=== PATIENT | male | born 1985 | race Caucasian/White ===

== ENCOUNTER → 2016-06-26 | Outpatient (CLI) | payer OTHER ==
[~2016-06-26] MED LIST: ACET325T96 PO; DIVA250T4 PO; LCTX PO; MULTTAB PO; PRLSR20 PO; SUCR5SUS PO
--- NOTE | 2016-06-26 10:46 | DIAGNOSTIC IMAGING REPORT ---
ULTRASOUND OF THE THYROID GLAND CLINICAL HISTORY: Thyromegaly. COMPARISON STUDY: No priors. TECHNIQUE: Real-time, grayscale, and color flow sonography of the thyroid gland is performed utilizing a high-frequency linear transducer. Images are reviewed in the transverse and longitudinal planes. FINDINGS: Right lobe: The right lobe of the thyroid gland is slightly diminutive and homogeneous in echotexture, measuring 2.8 x 1.6 x 1.2 cm. Left lobe: The left lobe of the thyroid gland is slightly diminutive and homogeneous in echotexture, measuring 3.1 x 1.2 x 1.7 cm. Isthmus: The thyroid isthmus is normal in appearance and measures 0.2 cm in AP diameter. IMPRESSION: The thyroid gland is slightly diminutive and normal in echotexture. Electronically signed by: Dev Ruvalcaba M.D. 06/26/2016 10:44 AM Dictated Date/Time: 06/26/2016 10:43 AM
== END | disposition home or self-care (01) ==
LOC: C.ULTRBC 09:40
DX: E01.0 Iodine-deficiency related diffuse (endemic) goiter (principal)

== ENCOUNTER → 2017-04-17 | Outpatient (CLI) | payer OTHER ==
[~2017-04-17] MED LIST changes: +ACET-1693 PO; -ACET325T96 PO
[2017-04-17 13:50] LABS: INFLUENZA B ANTIGEN Neg for Influ B (NEG)
--- NOTE | 2017-04-24 06:41 | CODING QUERY NO DIAGNOSIS ---
TREATMENT RENDERED WITHOUT A DIAGNOSIS Dr. Billings, To promote full compliance with coding requirements relating to patient care, physician participation is requested in all cases of certified procedural coder uncertainty. Please assist us with providing a diagnosis/symptom for the test(s) below: A diagnosis/symptom was not documented on your Order. A valid diagnosis/symptom is required to bill all insurances. Please remember that we are unable to code a diagnosis of rule out, probable, possible, questionable, or suspected. Tests that require a diagnosis: * INFLUENZA VIRUS A & B ANTIGEN DIAGNOSIS: DATE OF SERVICE: 04/17/17 Provider Signature: Date: Thank you Myles Fontaine [facility] Information Management Once completed, please kindly fax back to [phone] For questions please call [phone]
== END | disposition home or self-care (01) ==
LOC: C.RAD 12:26
DX: Z01.89 Encounter for other specified special examinations (principal)

== ENCOUNTER 2020-12-18 23:19 | Observation (INO) ==
[2020-12-19] MEDS ORDERED: SODIUM CHLORIDE 0.9% 1000ML 1,000 ML IV STA (00:35)
[2020-12-19] MEDS ORDERED: ONDANSETRON INJ 2 MG/ML 2 ML VIAL IV STA (00:40)
[2020-12-19] MEDS ORDERED: ACETAMINOPHEN 500 MG TAB PO STA (00:40)
[2020-12-19] MEDS ORDERED: methylPREDNISolone 125 MG/2 ML VIAL IV STA (01:00)
[2020-12-19] MEDS ORDERED: ALBUT/IPRATROP 3MG/0.5MG NEB 3 ML VIAL NEB STA (01:00)
[2020-12-19 02:06] LABS: Basophils # (auto) 0.05 K/uL (0-0.2); Basophils % (auto) 0.4 %; Eosinophils # (auto) 0.03 K/uL (0-0.5); Eosinophils % (auto) 0.3 %; Hematocrit (blood only) 42.4 % (42-52); Hemoglobin 13.9 g/dL (14.0-18.0); Immature Granulocytes # (auto) 0.04 K/uL (0.00-0.02); Immature Granulocytes % (auto) 0.3 %; Lymphocytes # (auto) 1.58 K/uL (1.2-3.4); Lymphocytes % (auto) 13.7 %; Mean Corpuscular Hemoglobin 31.4 pg (25-34); Mean Corpuscular Hgb Conc 32.8 g/dL (32-36); Mean Corpuscular Volume 95.7 fL (80-100); Mean Platelet Volume 10.6 fL (7.4-10.4); Monocytes # (auto) 1.22 K/uL (0.11-0.59); Monocytes % (auto) 10.6 %; Neutrophils # (auto) 8.59 K/uL (1.4-6.5); Neutrophils % (auto) 74.7 %; Platelet Count 271 K/uL (130-400); RDW Coefficient of Variation 14.8 % (11.5-14.5); RDW Standard Deviation 52.2 fL (36.4-46.3); Red Blood Count 4.43 M/uL (4.7-6.1); White Blood Count 11.51 K/uL (4.8-10.8)
[2020-12-19] MEDS ORDERED: PIPERACILLIN/TAZOBACTAM 4.5 GM/120 ML BAG IV ONE ×2 (02:24→07:15)
[2020-12-19 02:25] LABS: Alanine Aminotransferase 23 U/L (12-78); Aspartate Aminotransferase 14 U/L (15-37); BUN Creatinine Ratio 17.3 (10-20); Blood Urea Nitrogen 17 mg/dl (7-18); Calcium 8.4 mg/dl (8.5-10.1); Carbon Dioxide 30 mmol/L (21-32); Chloride 105 mmol/L (98-107); Creatinine Clr Calc Pharmacy 64.1 ml/min; Est GFR (African American) 115.3 ml/min; Est GFR (Non-African American) 99.5 ml/min; Glucose 102 mg/dl (70-99); Potassium 4.2 mmol/L (3.5-5.1); Sodium 138 mmol/L (136-145)
[2020-12-19] MEDS ORDERED: CEFEPIME 2,000 MG/20 ML VIAL IV STA (02:26)
[2020-12-19] MEDS ORDERED: metroNIDAZOLE 500 MG/100 ML BAG IV STA (02:26)
[2020-12-19 02:30] LABS: Albumin Globulin Ratio 0.8 (0.9-2); Alkaline Phosphatase 79 U/L (45-117); Bilirubin,Total 0.3 mg/dl (0.2-1); Troponin I < 0.015 ng/ml (0-0.045)
[2020-12-19 02:31] LABS: Influenza A virus by PCR Negative (Negative); Influenza B virus by PCR Negative (Negative)
[2020-12-19] MEDS ORDERED: OPTIRAY 320 125ml IV ONE (03:47)
[2020-12-19] MEDS ORDERED: SODIUM CHLORIDE 0.9% 1000ML 1,000 ML IV SCH (05:09)
--- NOTE | 2020-12-19 06:18 | History & Physical Report ---
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 Aspiration pneumonia vs. aspiration pneumonitis CT with findings of bilateral lung groundglass like opacities; no PE; stable post surgical changes of the left lung BP soft, afebrile, tachypnea, procal nl @ 0.23, lactate nl @ 1 Flu neg., COVID neg. - admitted to PCU - given Cefepime and Flagyl in the ER given initially - started Flagyl for concern of aspiration pneumonia - IV fluids bolus X2 - consulted pulmonology given prior surgical history - aspiration precautions - humidified 02 - flutter valve allergic rhinitis - continue fexofenadine Code: full Diet: regular DVT: SCD's (2) Hypoxia: (3) Sepsis: (4) Bronchostenosis: (5) Esophageal stricture: History of Present Illness Chief Complaint: cough Primary Care Provider: Tay Billings Jr, Oswaldo Reyes is a 35-year-old male with a past medical history of esophageal stricture, trisomy 21, allergic rhinitis, gastritis and prior esophageal reconstruction presenting with cough preceded by nausea. Thursday evening he had diarrhea (since resolved), he had retching with that and may have aspirated at that time. On Thursday he was coughing all day that had progressively worsened and he developed a small amount of yellow sputum. Mom Stevo was in the room and would like to stay with her son in the hospital. Allergies Allergy/AdvReac Type Severity Reaction Status Date / Time gluten Allergy Severe Abdominal Verified 12/18/20 23:40 Pain Home Medications Medication Instructions Recorded Confirmed Type multivitamin (Daily Multiple) 1 tab PO DAILY 08/04/19 12/18/20 History fexofenadine 180 mg tablet 180 mg PO DAILY 12/13/20 12/18/20 History (Angelica Allergy) triamcinolone acetonide 55 mcg 2 spray INTRANASAL DAILY 12/13/20 12/18/20 History nasal spray aerosol econazole 1 % topical cream 1 applic TOPICAL BID 12/18/20 12/18/20 History ipratropium 20 mcg-albuterol 100 1 puff INHALATION BID 12/18/20 12/18/20 History mcg/actuation mist for inhalation (Combivent Respimat) Past Med/Surg History Medical History (Updated 12/19/20 @ 14:00 by Dev Hallman PA-C) Abdominal pain Aspiration into airway Esophageal stricture reconstructed esophagus Trisomy 21 Surgical History History of esophageal surgery reconstructed esophagus Social History Smoking Status: Never smoker Hx Alcohol Use: No Hx Substance Use: No Preferred Language: Ivorian Communication Ability: Impaired Sas Sql Developer Required: No Beliefs That Will Affect Care: None marital status: Single Current Living Situation: Family Feels Safe at Home: Yes Assistive Devices: Oxygen - Continuous Review of Systems Review of Systems: Constitutional: denies fevers, chills, fatigue, general weakness, diaphoresis, night sweats admit nausea Head: denies trauma, confusion, vision changes admit a headache this morning Neurologic: denies slurring of speech, focal weakness ENT: deneis rhinorrhea, stuffiness, sneezing Cardiac: denies palpitations admits chest pain with cough GI: denies blood in stool admits diarrhea on Thursday : denies urgency, frequency, dysuria Physical Exam Constitutional: well developed, well nourished and + ill appearing Eyes: PERRL, conjunctivae normal, anicteric sclerae ENMT: external ear and nose normal, oropharynx normal Neck: normal visual inspection Respiratory: no respiratory distress and no labored breathing Auscultation: + crackles (bilaterally throughout lung goyal) Cardiovascular: RRR, no murmur, no edema Gastrointestinal (Abdomen): normal bowel sounds, soft, nontender, no hepatosplenomegaly Skin: no rashes, warm and dry Neurologic: no focal motor deficits Psychiatric: Orientation: alert Results & Data Results & Data ([facility]) Vital Signs (Past 12 Hours) Vital Signs Temp Pulse Resp BP Pulse Ox 12/19/20 05:00 59 L 29 H 83/58 L 98 12/19/20 04:30 61 24 88/55 L 100 12/19/20 04:00 72 29 H 91/59 L 99 12/19/20 03:30 70 27 H 93/58 L 90 12/19/20 03:10 70 24 92 12/19/20 03:00 64 20 93 12/19/20 02:50 68 22 94 12/19/20 02:40 71 30 H 92 12/19/20 02:30 73 29 H 92 12/19/20 02:27 71 25 H 91 12/19/20 01:18 18 98 12/19/20 00:55 85 22 115/71 97 12/18/20 23:26 37.2 C 88 19 93/63 L 91 CBC Results Results Complete Blood Count Results: RBC 4.43 M/uL (4.7-6.1) L 12/19/20 WBC 11.51 K/uL (4.8-10.8) H 12/19/20 Hgb 13.9 g/dL (14.0-18.0) L 12/19/20 Hct 42.4 % (42-52) 12/19/20 Plt Count 271 K/uL (130-400) 12/19/20 Chemistry (BMP) Results BMP Results: Sodium 138 mmol/L (136-145) 12/19/20 Potassium 4.2 mmol/L (3.5-5.1) 12/19/20 Chloride 105 mmol/L (98-107) 12/19/20 BUN 17 mg/dl (7-18) 12/19/20 Creatinine 0.98 mg/dl (0.6-1.4) 12/19/20 Glucose 102 mg/dl (70-99) H 12/19/20 Supervising Physician Co-Signing Physician Notes Patient seen and examined, chart reviewed, case discussed with Dr. Batista and I agree with the assessment and plan as documented above. Briefly, patient is a 35 yo male with history of Trisomy 21, esophageal stricture s/p esophageal reconstruction, aspiration in the past presenting with possible aspiration event. Patient has been coughing all day productive for yellow sputum. Afebrile, HD stable during my encounter. Sleeping comfortably with Oxymask in place Heart - +S1/S2, regular Lungs - coarse breath sounds in bases Abd - +BS, soft, NT/ND Ext - no edema Labs and images reviewed Assessment/Plan - Aspiration event, ?pneumonia vs pneumonitis - on O2 -Zosyn -Supplemental O2 as needed -Remainder of plan as above Resident Activity Tracking Resident Involvement: Resident Care Provided Care Provided: [facility] (1) Sepsis Sepsis type: sepsis due to unspecified organism Qualified Code(s): A41.9 - Sepsis, unspecified organism (2) Pneumonia Laterality: bilateral Lung location: unspecified part of lung Pneumonia type: due to unspecified organism Qualified Code(s): J18.9 - Pneumonia, unspecified organism
--- NOTE | 2020-12-19 06:47 | Billing Data ---
Date of Service December 19, 2020 Coding Level of Care Code 14328 Initial Inpt Care Lvl 2
[2020-12-19] MEDS ORDERED: ONDANSETRON INJ 2 MG/ML 2 ML VIAL IV PRN (07:07)
[2020-12-19] MEDS ORDERED: PIPERACILL/TAZOBAC CONSULT ACTIVE PRN (07:07)
[2020-12-19] MEDS ORDERED: Albuterol HFA 8 GM Inhaler (Combivent Respimat P&T Subs) INH SCH (07:30)
[2020-12-19] MEDS ORDERED: Ipratropium HFA Inhaler (Combivent Respimat P&T Subs) INH SCH (07:30)
--- NOTE | 2020-12-19 08:06 | Hospitalist Progress Note ---
Date of Service December 19, 2020 Assessment & Plan Admission and Anticipated Discharge Date Admission Date: December 19, 2020 Results & Data Results & Data ([facility]) Vital Signs (Past 12 Hours) Vital Signs Temp Pulse Resp BP Pulse Ox 12/19/20 05:30 56 L 28 H 93/59 L 100 12/19/20 05:15 57 L 14 94/52 L 100 12/19/20 05:00 59 L 29 H 83/58 L 98 12/19/20 04:30 61 24 88/55 L 100 12/19/20 04:00 72 29 H 91/59 L 99 12/19/20 03:30 70 27 H 93/58 L 90 12/19/20 03:10 70 24 92 12/19/20 03:00 64 20 93 12/19/20 02:50 68 22 94 12/19/20 02:40 71 30 H 92 12/19/20 02:30 73 29 H 92 12/19/20 02:27 71 25 H 91 12/19/20 01:18 18 98 12/19/20 00:55 85 22 115/71 97 12/18/20 23:26 37.2 C 88 19 93/63 L 91
--- NOTE | 2020-12-19 08:21 | XRay Report ---
XR chest 1V portable CLINICAL HISTORY: SOB, cough COMPARISON STUDY: January 11, 2018 FINDINGS: No pneumothorax. Minimal left pleural effusion is seen. Prominent reticular nodular opacities are seen bilaterally, predominantly in central distribution. De nse left retrocardiac opacity seen and might represent atelectasis or infiltrate. Redemonstration of postsurgical changes after esophagectomy and enteric pull-through procedure. Cardiomediastinal silhouette is mildly enlarged. Bilateral ratna are prominent. Pulmonary vasculature is secured.. Osseous structures: Mild thoracolumbar scoliosis is seen. IMPRESSION: 1. Bilateral reticular opacities and enlarged cardiac silhouette might represent pulmonary edema, ho wever infectious/inflammatory etiology is also possible. 2. Small left pleural effusion 3. The rest of findings as above. ACT 112: Negative or not required by law. The above report was generated using voice recognition software. It may contain grammatical, syntax o r spelling errors. Electronically signed by: Massiel Medley DO 12/19/2020 8:20 AM
--- NOTE | 2020-12-19 08:57 | Electrocardiogram Report ---
Test Reason : Blood Pressure : / mmHG Vent. Rate : 072 BPM Atrial Rate : 072 BPM P-R Int : 108 ms QRS Dur : 090 ms QT Int : 392 ms P-R-T Axes : 039 052 040 degrees QTc Int : 429 ms Sinus rhythm with short [place] Left atrial enlargement Borderline ECG When compared with ECG of 11-JAN-2018 14:06, No significant change was found Confirmed by Gómez Moise ([id number]) on 12/19/2020 8:57:12 AM Referred By: REFERRED SELF Confirmed By:Gómez Moise
[2020-12-19] MEDS ORDERED: FEXOFENADINE HCL 180 MG TAB PO SCH (09:00)
[2020-12-19] MEDS ORDERED: IPRATROPIUM BROMIDE/ALBUTEROL respimat INH INH SCH (09:00)
[2020-12-19] MEDS ORDERED: FLUTICASONE PROPIONATE NA SPR 16 GM BTL SCH (09:00)
[2020-12-19] MEDS ORDERED: AZITHROMYCIN 500 MG in DEXTROSE 5% 250 ML IV SCH (09:15)
--- NOTE | 2020-12-19 10:05 | CT Scan Report ---
CT ANGIOGRAM OF THE CHEST CLINICAL HISTORY: PNA, aspiration COMPARISON STUDY: January 15, 2018 TECHNIQUE: Following the IV administration of 87 mL of Optiray, CT angiogram of the thorax was perfor med from the thoracic inlet to the lung bases utilizing the pulmonary embolus protocol. Images are re viewed in the axial, sagittal, and coronal planes. IV contrast was administered without complication. MIP imaging was performed. A dose lowering technique was utilized adhering to the principles of ALA RA. CT DOSE: 281.88 mGy.cm FINDINGS: There is no axillary or suture supra clavicle lymph nodes are seen. Slightly prominent lymph node is seen within prevascular space There was no evidence of thoracic aortic dilatation. Main pulmonary artery is dilated measuring up to 3.1 cm in diameter, unchanged since prior study which could be seen in pulmonary hypertension. Visualized portion of thyroid gland shows no evidence of focal lesions. 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 Heart is normal in size without pericardial effusion or coronary calcifications. Tracheobronchial tree is patent. This study is acquired during partial expiratory phase. Evaluation o f pulmonary parenchyma is limited due to respiratory motion artifact. Patchy mixed reticular and airspace opacities are seen throughout bilateral lungs associated with mil d septal thickening. No definite pleural effusion is seen. Limited evaluation of upper abdominal viscera shows no evidence of acute abnormalities. Osseous structures: Mild thoracolumbar scoliosis is again seen. IMPRESSION: 1. Multiple mixed reticular and airspace opacities throughout bilateral lungs also associated with s eptal thickening might represent infectious/inflammatory process. Pulmonary edema component is also p ossible. Overall evaluation is limited due to respiratory motion artifact. 2. Redemonstration status post esophagectomy and enteric pull-through procedure. Findings are stable since prior as detailed above. 3. Prominent mediastinal lymph nodes, not significantly changed since prior. 4. Dilated main pulmonary artery which could be seen in pulmonary hypertension. 5. The rest of findings as above. ACT 112: Negative or not required by law. The above report was generated using voice recognition software. It may contain grammatical, syntax o r spelling errors. Electronically signed by: Massiel Medley DO 12/19/2020 10:04 AM
--- NOTE | 2020-12-19 13:05 | XCELERA ---
[id number]
[2020-12-19 13:31] VITALS: BP 102/83; PULSE 66; TEMP 98.2; O2SAT 98
--- NOTE | 2020-12-19 13:50 | Pulmonary Consultation ---
Date of Consultation December 19, 2020 Assessment & Plan (1) Aspiration into airway: (2) Bronchostenosis: (3) Esophageal stricture: (4) Hypoxia: (5) DVT prophylaxis: Attending: Dr. Phelps Impression: Is a 35-year-old male with a history of trisomy 21, bronchial stenosis with previous stent, history of aspiration, history of pneumonia, recent vomiting. Recommendations: 1. Aspiration pneumonitis: * Chest CT shows reticular pattern. This certainly appears to be worse than p revious CT but most likely is not related to aspiration. Procalcitonin is negative at 0.23. Patient is afebrile. Patient has had no episodes of hypoxia. * Although patient may have some pneumonitis secondary to aspiration, there was no witnessed aspiration per report of father. * In light of the negative procalcitonin and only mildly elevated WBC (11.51) would hold antibiotics and allow patient to declare himself. * Patient may benefit from incentive spirometry but with his trisomy 21 he may have difficulty coordinating. * Patient is not hypoxic and does not require supplemental oxygen * Continue aspiration precautions and supervised feedings. Keep head of bed greater than 30 degrees 2. Hypoxia: * Patient with a history of hypoxia but not on any supplemental oxygen as an outpatient * No evidence of hypoxia this hospital stay * No indication for supplemental oxygen at this time * Continue incentive spirometry. May use duo nebs as tolerated 3. Bronchostenosis: * Previous surgery about 5 years ago at [facility] * No complications since then * Good air movement in all lobes of right and left lung * No evidence of obstruction on CT scan * No intervention or need for transfer at this time Thank you for including us in the care of this patient. Please refer to Dr. Phelps's addendum for further recommendations and corrections Pulmonary medicine will sign off at this time. Please feel free to reconsult as needed. Supervising Physician Co-Signing Physician Notes I discussed the patient on the phone with Dev Hallman, and agree with findings and plan as documented in the note. No indication for any intervention from pulmonary perspective. Procalcitonin negative Patient does have some groundglass opacities bilaterally. Aspiration cannot be ruled out Would recommend aspiration precautions Please note the above document was generated using voice recognition software. It may contain grammatical, syntax or spelling errors.Any formal questions or concerns about the content, text or information contained within the body of this dictation should be directly addressed to the provider for clarification. History of Present Illness Reason for Consultation: Possible pneumonitis from aspiration Requesting Physician: Dr. Piper Attending Physician: Erika Piper MD History of Present Illness Attending: Dr. Phelps Is a 35-year-old male with a history of trisomy 21, esophageal stricture, bronchial stenosis, coronary patient, history of colonic interposition as an , and seasonal allergies. Patient presented to the emergency department accompanied by his mom Stevo for episodes of coughing and retching. No witnessed aspiration. Imaging shows possible pneumonitis versus atelectasis which was concerning for the admitting team for aspiration secondary to esophageal stricture. On examination patient is pleasant and denies any acute complications or problems. Father is present in the room at the time of my examination and interview. Patient denies any fever, chills, sweats, rigors. This is confirmed by father. Since being admitted, father states that Oswaldo appears to be at baseline. While there was a small amount of yellow sputum with coughing on Thursday, there was no significant sputum production and no evidence of respiratory distress. Patient was started on Flagyl and Zosyn on admission. Procalcitonin is negative at 0.23 and patient is not hypoxic. Currently patient is saturating at 98% on room air. Allergies Allergy/AdvReac Type Severity Reaction Status Date / Time gluten Allergy Severe Abdominal Verified 12/18/20 23:40 Pain Home Medications Medication Instructions Recorded Confirmed Type multivitamin (Daily Multiple) 1 tab PO DAILY 08/04/19 12/18/20 History fexofenadine 180 mg tablet 180 mg PO DAILY 12/13/20 12/18/20 History (Angelica Allergy) triamcinolone acetonide 55 mcg 2 spray INTRANASAL DAILY 12/13/20 12/18/20 History nasal spray aerosol econazole 1 % topical cream 1 applic TOPICAL BID 12/18/20 12/18/20 History ipratropium 20 mcg-albuterol 100 1 puff INHALATION BID 12/18/20 12/18/20 History mcg/actuation mist for inhalation (Combivent Respimat) Patient History Medical History (Updated 12/19/20 @ 14:00 by Dev Hallman PA-C) Abdominal pain Aspiration into airway Esophageal stricture reconstructed esophagus Trisomy 21 Surgical History History of esophageal surgery reconstructed esophagus Social History Smoking Status: Never smoker Hx Alcohol Use: No Hx Substance Use: No Preferred Language: German Communication Ability: Impaired Drapery Head Former Required: No Beliefs That Will Affect Care: None marital status: Single Current Living Situation: Family Feels Safe at Home: Yes Assistive Devices: Oxygen - Continuous Review of Systems Review of Systems: All systems reviewed & are unremarkable except as noted in Subjective Physical Exam Physical Exam: GENERAL : No acute distress. Pleasant EYES: No icterus, gaze conjugate NOSE: No evidence of epistaxis MOUTH: No lesions or candidiasis NECK: Supple LUNGS: Good inspirational effort. Some rales at the bilateral bases. No rhonchi or significant bronchospasm. HEART: Regular, rate controlled ABDOMEN: Soft, NT, ND, BS Present EXTREMITIES: No LE edema, pedal pulses intact NEURO: Awake and alert. Pleasant. No evidence of acute neurological deficits to cranial nerves II through XII Results & Data Results & Data ([facility]) Vital Signs (Past 12 Hours) Vital Signs Temp Pulse Pulse Resp BP BP Pulse Ox 12/19/20 12:00 36.8 C 66 18 102/83 98 12/19/20 09:43 55 L 18 100 12/19/20 07:07 66 22 104/58 L 95 12/19/20 05:30 56 L 28 H 93/59 L 100 12/19/20 05:15 57 L 14 94/52 L 100 12/19/20 05:00 59 L 29 H 83/58 L 98 12/19/20 04:30 61 24 88/55 L 100 12/19/20 04:00 72 29 H 91/59 L 99 12/19/20 03:30 70 27 H 93/58 L 90 12/19/20 03:10 70 24 92 12/19/20 03:00 64 20 93 12/19/20 02:50 68 22 94 12/19/20 02:40 71 30 H 92 12/19/20 02:30 73 29 H 92 12/19/20 02:27 71 25 H 91 Laboratory Results 12/19/20 Unknown 12/19/20 Unknown Diagnostic Findings Chest X-Ray 12/19/20 00:35 XR chest 1V portable CLINICAL HISTORY: SOB, cough COMPARISON STUDY: January 11, 2018 FINDINGS: No pneumothorax. Minimal left pleural effusion is seen. Prominent reticular nodular opacities are seen bilaterally, predominantly in central distribution. Dense left retrocardiac opacity seen and might represent atelectasis or infiltrate. Redemonstration of postsurgical changes after esophagectomy and enteric pull- through procedure. Cardiomediastinal silhouette is mildly enlarged. Bilateral ratna are prominent. Pulmonary vasculature is secured.. Osseous structures: Mild thoracolumbar scoliosis is seen. IMPRESSION: 1. Bilateral reticular opacities and enlarged cardiac silhouette might represent pulmonary edema, however infectious/inflammatory etiology is also possible. 2. Small left pleural effusion 3. The rest of findings as above. ACT 112: Negative or not required by law. The above report was generated using voice recognition software. It may contain grammatical, syntax or spelling errors. Electronically signed by: Massiel Medley DO 12/19/2020 8:20 AM Chest CTA 12/19/20 02:59 CT ANGIOGRAM OF THE CHEST CLINICAL HISTORY: PNA, aspiration COMPARISON STUDY: January 15, 2018 TECHNIQUE: Following the IV administration of 87 mL of Optiray, CT angiogram of the thorax was performed from the thoracic inlet to the lung bases utilizing the pulmonary embolus protocol. Images are reviewed in the axial, sagittal, and coronal planes. IV contrast was administered without complication. MIP imaging was performed. A dose lowering technique was utilized adhering to the princip les of MANISHA. CT DOSE: 281.88 mGy.cm FINDINGS: There is no axillary or suture supra clavicle lymph nodes are seen. Slightly prominent lymph node is seen within prevascular space There was no evidence of thoracic aortic dilatation. Main pulmonary artery is dilated measuring up to 3.1 cm in diameter, unchanged since prior study which could be seen in pulmonary hypertension. Visualized portion of thyroid gland shows no evidence of focal lesions. 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 Heart is normal in size without pericardial effusion or coronary calcifications. Tracheobronchial tree is patent. This study is acquired during partial expiratory phase. Evaluation of pulmonary parenchyma is limited due to r espiratory motion artifact. Patchy mixed reticular and airspace opacities are seen throughout bilateral lungs associated with mild septal thickening. No definite pleural effusion is seen. Limited evaluation of upper abdominal viscera shows no evidence of acute abnormalities. Osseous structures: Mild thoracolumbar scoliosis is again seen. IMPRESSION: 1. Multiple mixed reticular and airspace opacities throughout bilateral lungs also associated with septal thickening might represent infectious/inflammatory process. Pulmonary edema component is also possible. Overall evaluation is limit ed due to respiratory motion artifact. 2. Redemonstration status post esophagectomy and enteric pull-through procedure. Findings are stable since prior as detailed above. 3. Prominent mediastinal lymph nodes, not significantly changed since prior. 4. Dilated main pulmonary artery which could be seen in pulmonary hypertension. 5. The rest of findings as above. ACT 112: Negative or not required by law. The above report was generated using voice recognition software. It may contain grammatical, syntax or spelling errors. Electronically signed by: Massiel Medley DO 12/19/2020 10:04 AM PG Care Time/CCT Total # of Minutes Spent Total Time Spent with Patient: Total time spent is greater than 50% in coordination of care (as documented) at patient's floor/unit and/or counseling patient:40 Coding Level of Care Code 52077 Inpt Consult Level 4 Diagnoses Aspiration into airway T17.908A Bronchostenosis J98.09 Esophageal stricture K22.2 Hypoxia R09.02 DVT prophylaxis Z29.9 Time Spent (min) 40
[2020-12-19] MEDS ORDERED: PIPERACILLIN/TAZOBACTAM 3.375 GM in DEXTROSE 5% 100 ML IV SCH (14:00)
--- NOTE | 2020-12-19 15:58 | Communication Note ---
Date of Service: December 19, 2020 By CMS guidelines, a determination that the admission or continued stay is not medically necessary has been made by a member of the UR committee and velma dunbar for this hospital stay, therefore a Code 44 will be completed and the Inpatient admission will be changed to outpatient.
--- NOTE | 2020-12-19 16:03 | Communication Note ---
Date of Service: December 19, 2020 By CMS guidelines, a determination that the admission or continued stay is not medically necessary has been made by a member of the UR committee and a physician for this hospital stay, therefore a Code 44 will be completed and the Inpatient admission will be changed to outpatient. Alyssa Bashir M.D.
--- NOTE | 2020-12-19 16:50 | Discharge Summary ---
Date of Service December 19, 2020 Admission HPI Per Admitting Provider Oswaldo Reyes is a 35-year-old male with a past medical history of esophageal stricture, trisomy 21, allergic rhinitis, gastritis and prior esophageal reconstruction presenting with cough preceded by nausea. Thursday evening he had diarrhea (since resolved), he had retching with that and may have aspirated at that time. On Thursday he was coughing all day that had progressively worsened and he developed a small amount of yellow sputum. Mom Stevo was in the room and would like to stay with her son in the hospital. Principal Diagnosis Aspiration pneumonitis Discharge Exam GENERAL: A&Ox3. NAD. HEENT: PERRL, EOMI. Moist mucous membranes. CHEST/LUNGS: Crackles diffusely in all lung goyal. No wheezes, rales, rhonchi. No increased work of breathing. Saturating well. HEART: RRR. No m/g/r. No carotid bruits. ABDOMEN: NT/ND, soft. BS+ x4 EXTREMITIES: No cyanosis, no clubbing, no edema SKIN: Warm and dry. No rashes or lesions. PSYCHIATRIC: Euthymic affect, no SI, no pressured speech, no hallucinations NEUROLOGIC: No FND. CN II-XII grossly intact. Discharge Data Allergies Allergy/AdvReac Type Severity Reaction Status Date / Time gluten Allergy Severe Abdominal Verified 12/18/20 23:40 Pain Consultations 12/19/20 04:11 ED Decision to Admit Stat 12/19/20 07:07 Consult Pulmonology Routine Ordered Studies 12/19/20 02:59 CT angio chest PE protocol Urgent Hospital Course (1) Pneumonia: Oswaldo Reyes is a 35-year-old male with a past medical history of esophageal stricture, trisomy-21, allergic rhinitis, gastritis and prior esophageal reconstruction presenting after retching and development of a cough. Aspiration pneumonitis - CT with findings of bilateral lung groundglass like opacities; no PE; stable post surgical changes of the left lung - procal nl @ 0.23, lactate nl @ 1 - Flu neg., COVID neg. - given Cefepime and Flagyl in the ER given initially - started Flagyl for concern of aspiration pneumonia on admission - IV fluids bolus X2 - consulted pulmonology --CT chest shows reticular pattern, appears to be worse than previous CT but most likely not related to aspiration --Although patient may have some pneumonitis secondary to aspiration, there was no witnessed aspiration per report of father --In light of the negative procalcitonin and only mildly elevated WBC (11.51) would hold antibiotics --Aspiration precautions and supervised feedings -Patient had bedside swallow evaluation performed by nursing with no issues or signs of aspiration/coughing/retching -As such, patient to be discharged under care of father both father and patient instructed in small bites, easy to chew food, sitting upright when eating, remaining upright after meals - As above no need for antibiotics unless patient were to develop some clear signs of infection, in which case recommend outpatient evaluation vs return to hospital Dispo: Home with family (2) Hypoxia: (3) Sepsis: (4) Bronchostenosis: (5) Esophageal stricture: Total Time Total Time Spent Total Time Spent (In Minutes): See attending attestation Discharge Plan Discharge Items Patient Disposition: Home - Self-Care Reason For Visit: PNEUMONIA Discharge Diagnosis: Aspiration pneumonitis Activity: Per Instructions section Non-emergency contact: Primary Care Provider and Final Inspector Paper Call non-emergency contact if: you have any medication questions and your symptoms worsen Follow-up/Referrals: Tay Billings Jr, [Primary Care Provider] - Diet: Regular Diet Texture: Easy to Chew Addtl Attending Provider Instructions: Oswaldo was admitted to [facility] due to concerns of pneumonia. It was thought that, due to his recent vomiting, he could have been aspirating some gastric contents. His chest imaging did show some opacities, which were concerning for infection. He was thus admitted and started on antibiotics and a Pulmonology consult was placed. The Pulmonology team recommended discontinuation of antibiotics as there was no clear sign of infection on laboratory testing. Oswaldo did well with a bedside swallowing evaluation. However, it is christelle mmended that you implement aspiration precautions at home with easy to chew meals and supervised feedings to make sure he does not aspirate. If Oswaldo does develop fever, chills, difficulty breathing, worsening cough with phlegm, or any other concerning signs/symptoms, please contact his PCP or return to the hospital for further evaluation. Pending Studies at Discharge: No Stand-Alone Forms: [employer], Smoking Cessation Medications and DC Order Prescriptions: Continued multivitamin [Daily Multiple] Tablet 1 tab PO DAILY RF: 0 fexofenadine [Angelica Allergy] 180 mg tablet 180 mg PO DAILY RF: 0 triamcinolone acetonide 55 mcg aerosol,spray 2 spray intranasal DAILY RF: 0 econazole 1 % cream 1 applic TOPICAL BID RF: 0 Combivent Respimat 20-100 mcg/actuation mist 1 puff INHALATION BID RF: 0 Discharge Orders: Discharge Order (Routine); Ordered 12/19/20 Ordered By: Chapin Kumar Admission Data Admit Date/Time: 12/19/20 05:22 Attending Provider: Erika Piper Admit Provider: Luis Batista Primary Care Provider: Tay Billings Jr Other Providers: Charu Mendoza Muqueet Other Interventions: Discharge Summary Assessment (RN) Last Done: 12/19/20 17:36 Supervising Physician Co-Signing Physician Notes Resident Physician Supervision Note: I independently interviewed and examined the patient and verified the garner history and physical, reviewed labs and image studies and agree with resident Dr. Phan findings and care plan. Resident Activity Tracking Resident Involvement: Resident Care Provided Care Provided: Adult Hospital Medicine
--- NOTE | 2020-12-19 19:27 | Billing Data ---
Date of Service December 19, 2020 Coding Level of Care Code INT OBSERVATION CARE 50M LVL 2
--- NOTE | 2020-12-19 20:29 | Emergency Department Note ---
History of Present Illness General Chief complaint: Nausea Stated complaint: NAUSEA,VOMITING,HEADACHE,COUGH,LOW PULSE OX Time Seen by Provider: 12/19/20 00:26 History of Present Illness Maximum Pain Intensity: 7 Home Medications Medication Instructions Recorded Confirmed Type multivitamin (Daily Multiple) 1 tab PO DAILY 08/04/19 12/18/20 History fexofenadine 180 mg tablet 180 mg PO DAILY 12/13/20 12/18/20 History (Angelica Allergy) triamcinolone acetonide 55 mcg 2 spray INTRANASAL DAILY 12/13/20 12/18/20 History nasal spray aerosol econazole 1 % topical cream 1 applic TOPICAL BID 12/18/20 12/18/20 History ipratropium 20 mcg-albuterol 100 1 puff INHALATION BID 12/18/20 12/18/20 History mcg/actuation mist for inhalation (Combivent Respimat) Allergies Allergy/AdvReac Type Severity Reaction Status Date / Time gluten Allergy Severe Abdominal Verified 12/18/20 23:40 Pain Past Med/Surg History Medical History (Updated 12/19/20 @ 14:00 by Dev Hallman PA-C) Abdominal pain Aspiration into airway Esophageal stricture reconstructed esophagus Trisomy 21 Surgical History History of esophageal surgery reconstructed esophagus Social History Smoking Status: Never smoker Hx Alcohol Use: No Hx Substance Use: No Preferred Language: Tajik Communication Ability: Impaired Website/Blog Editor Required: No Beliefs That Will Affect Care: None marital status: Single Current Living Situation: Family Feels Safe at Home: Yes Assistive Devices: Oxygen - Continuous Physical Exam Vital Signs Vital Signs - 24 hr 12/18/20 23:26 12/19/20 00:55 12/19/20 01:18 Temperature 37.2 C Temperature Source Temporal Artery Scan Pulse Rate 88 85 Pulse Rate from SpO2 Sensor Respiratory Rate 19 22 18 Respiratory Effort / Characteristics Non-Labored Spontaneous Respiratory Depth Normal Respiratory Pattern Regular Blood Pressure 93/63 L 115/71 Blood Pressure Mean 73 85 Pulse Oximetry 91 97 98 Oxygen Delivery Method Room Air Nasal Cannula Oxygen Flow Rate 2 2 Sepsis Recent Fever Within 48 Hours No Sepsis New/Unexplained Change in Mental Status N/A Sepsis Action Taken by Nursing No Action Required 12/19/20 02:27 12/19/20 02:30 12/19/20 02:40 Temperature Temperature Source Pulse Rate 71 73 71 Pulse Rate from SpO2 Sensor 71 74 69 Respiratory Rate 25 H 29 H 30 H Respiratory Effort / Characteristics Respiratory Depth Respiratory Pattern Blood Pressure Blood Pressure Mean Pulse Oximetry 91 92 92 Oxygen Delivery Method Nasal Cannula Nasal Cannula Nasal Cannula Oxygen Flow Rate 2 2 2 Sepsis Recent Fever Within 48 Hours Sepsis New/Unexplained Change in Mental Status Sepsis Action Taken by Nursing 12/19/20 02:50 12/19/20 03:00 12/19/20 03:10 Temperature Temperature Source Pulse Rate 68 64 70 Pulse Rate from SpO2 Sensor 69 65 70 Respiratory Rate 22 20 24 Respiratory Effort / Characteristics Respiratory Depth Respiratory Pattern Blood Pressure Blood Pressure Mean Pulse Oximetry 94 93 92 Oxygen Delivery Method Nasal Cannula Nasal Cannula Nasal Cannula Oxygen Flow Rate 2 2 2 Sepsis Recent Fever Within 48 Hours Sepsis New/Unexplained Change in Mental Status Sepsis Action Taken by Nursing 12/19/20 03:30 12/19/20 04:00 12/19/20 04:30 Temperature Temperature Source Pulse Rate 70 72 61 Pulse Rate from SpO2 Sensor 70 69 61 Respiratory Rate 27 H 29 H 24 Respiratory Effort / Characteristics Respiratory Depth Respiratory Pattern Blood Pressure 93/58 L 91/59 L 88/55 L Blood Pressure Mean 69 69 66 Pulse Oximetry 90 99 100 Oxygen Delivery Method Nasal Cannula Oxymask Oxymask Oxygen Flow Rate 2 4 4 Sepsis Recent Fever Within 48 Hours Sepsis New/Unexplained Change in Mental Status Sepsis Action Taken by Nursing 12/19/20 05:00 12/19/20 05:15 Temperature Temperature Source Pulse Rate 59 L 57 L Pulse Rate from SpO2 Sensor 58 L Respiratory Rate 29 H 14 Respiratory Effort / Characteristics Respiratory Depth Respiratory Pattern Blood Pressure 83/58 L 94/52 L Blood Pressure Mean 66 66 Pulse Oximetry 98 100 Oxygen Delivery Method Oxymask Oxymask Oxygen Flow Rate 4 4 Sepsis Recent Fever Within 48 Hours Sepsis New/Unexplained Change in Mental Status Sepsis Action Taken by Nursing Course Administered Medications Discontinued Medications Acetaminophen (Acetaminophen 500 Mg Tab) 1,000 mg PO NOW STA Stop: 12/19/20 00:41 Last Admin: 12/19/20 01:22 Dose: 1,000 mg Documented by: [id number] Albuterol (Albut/Ipratrop 3mg/0.5mg Neb 3 Ml Vial) 3 ml NEB NOW STA Stop: 12/19/20 01:01 Last Admin: 12/19/20 01:18 Dose: 3 ml Documented by: Albuterol (Albuterol Hfa 8 Gm Inhaler (Combivent Respimat P&T Subs)) 1 puffs INH BIDR LUPE Stop: 01/18/21 07:29 Last Admin: 12/19/20 09:43 Dose: 1 puffs Documented by: [id number] Fexofenadine HCl (Fexofenadine Hcl 180 Mg Tab) 180 mg PO DAILY LUPE Stop: 01/18/21 08:59 Last Admin: 12/19/20 12:03 Dose: Not Given Documented by: [id number] Fluticasone Propionate (Fluticasone Propionate Na Spr 16 Gm Btl) 2 sprays NA DAILY LUPE Stop: 01/18/21 08:59 Last Admin: 12/19/20 10:01 Dose: 2 sprays Documented by: [id number] Sodium Chloride (Nss 1000ml) 1,000 mls @ 999 mls/hr IV .Q1H1M STA Stop: 12/19/20 01:35 Last Infusion: 12/19/20 02:50 Dose: 0 mls/hr Documented by: [id number] Admin: 12/19/20 01:21 Dose: 999 mls/hr Documented by: [id number] Piperacillin Sod/Tazobactam Sod (Zosyn) 4.5 gm in 120 mls @ 240 mls/hr IV NOW ONE Stop: 12/19/20 02:53 Last Admin: 12/19/20 03:25 Dose: Not Given Documented by: [id number] Cefepime HCl (Maxipime) 2,000 mg in 20 mls @ 5 mls/min IV NOW STA; Protocol Stop: 12/19/20 02:29 Last Admin: 12/19/20 03:18 Dose: 5 mls/min Documented by: [id number] Metronidazole (Flagyl) 500 mg in 100 mls @ 100 mls/hr IV NOW STA Stop: 12/19/20 03:25 Last Infusion: 12/19/20 04:18 Dose: 0 mls/hr Documented by: [id number] Admin: 12/19/20 03:18 Dose: 100 mls/hr Documented by: [id number] Sodium Chloride (Nss 1000ml) 1,000 mls @ 999 mls/hr IV .Q1H1M LUPE Stop: 12/19/20 06:09 Last Infusion: 12/19/20 08:55 Dose: 0 mls/hr Documented by: [id number] Admin: 12/19/20 06:45 Dose: 999 mls/hr Documented by: [id number] Piperacillin Sod/Tazobactam (Sod 3.375 gm/ Dextrose) 115 mls @ 28.75 mls/hr IV Q8H [facility]; Protocol Stop: 12/26/20 13:59 Last Admin: 12/19/20 15:06 Dose: Not Given Documented by: [id number] Piperacillin Sod/Tazobactam Sod (Zosyn) 4.5 gm in 120 mls @ 240 mls/hr IV NOW ONE Stop: 12/19/20 07:44 Last Infusion: 12/19/20 10:58 Dose: 0 mls/hr Documented by: [id number] Admin: 12/19/20 09:18 Dose: 240 mls/hr Documented by: [id number] Azithromycin 500 mg/ Dextrose 255 mls @ 125 mls/hr IV DAILY [facility]; Protocol Stop: 12/24/20 09:14 Last Infusion: 12/19/20 13:05 Dose: 0 mls/hr Documented by: [id number] Admin: 12/19/20 10:58 Dose: 125 mls/hr Documented by: [id number] Ioversol (Optiray 320 125ml) 125 ml IV ONCE ONE Stop: 12/19/20 03:48 Last Admin: 12/19/20 03:48 Dose: 87 ml Documented by: [id number] Ipratropium Aurora (Ipratropium Hfa Inhaler (Combivent Respimat P&T Subs)) 1 puffs INH BIDR LUPE Stop: 01/18/21 07:29 Last Admin: 12/19/20 09:43 Dose: 1 puffs Documented by: [id number] Methylprednisolone (Methylprednisolone 125 Mg/2 Ml Vial) 60 mg IV NOW STA Stop: 12/19/20 01:01 Last Admin: 12/19/20 01:27 Dose: 60 mg Documented by: [id number] Ondansetron HCl (Ondansetron Inj 2 Mg/Ml 2 Ml Vial) 4 mg IV NOW STA Stop: 12/19/20 00:41 Last Admin: 12/19/20 01:26 Dose: 4 mg Documented by: [id number] Medical Decision Making Laboratory Data Result diagrams: 12/19/20 Unknown 12/19/20 Unknown Lab Results 12/19/20 12/19/20 12/19/20 Range/Units 01:40 01:40 01:40 Lactate (0.4-2.0) mmol/L NT-Pro-B Natriuret Pep (0-450) pg/ml COVID-19 Eval Order Covid19 at [facility] SARS-CoV-2 (PCR) NEGATIVE (Negative) Influ A Molecular Assay Negative (Negative) Influ B Molecular Assay Negative (Negative) 12/19/20 12/19/20 Range/Units 02:16 02:16 Lactate 1.0 (0.4-2.0) mmol/L NT-Pro-B Natriuret Pep 300 (0-450) pg/ml COVID-19 Eval Order SARS-CoV-2 (PCR) (Negative) Influ A Molecular Assay (Negative) Influ B Molecular Assay (Negative) Imaging Data Radiologist's Impression: Chest CTA 12/19/20 02:59 CT ANGIOGRAM OF THE CHEST CLINICAL HISTORY: PNA, aspiration COMPARISON STUDY: January 15, 2018 TECHNIQUE: Following the IV administration of 87 mL of Optiray, CT angiogram of the thorax was performed from the thoracic inlet to the lung bases utilizing the pulmonary embolus protocol. Images are reviewed in the axial, sagittal, and coronal planes. IV contrast was administered without complication. MIP imaging was performed. A dose lowering technique was utilized adhering to the principles of ALARA. CT DOSE: 281.88 mGy.cm FINDINGS: There is no axillary or suture supra clavicle lymph nodes are seen. Slightly prominent lymph node is seen within prevascular space There was no evidence of thoracic aortic dilatation. Main pulmonary artery is dilated measuring up to 3.1 cm in diameter, unchanged since prior study which could be seen in pulmonary hypertension. Visualized portion of thyroid gland shows no evidence of focal lesions. 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 Heart is normal in size without pericardial effusion or coronary calcifications. Tracheobronchial tree is patent. This study is acquired during partial expiratory phase. Evaluation of pulmonary parenchyma is limited due to respiratory motion artifact. Patchy mixed reticular and airspace opacities are seen throughout bilateral lungs associated with mild septal thickening. No definite pleural effusion is seen. Limited evaluation of upper abdominal viscera shows no evidence of acute abnormalities. Osseous structures: Mild thoracolumbar scoliosis is again seen. IMPRESSION: 1. Multiple mixed reticular and airspace opacities throughout bilateral lungs also associated with septal thickening might represent infectious/inflammatory process. Pulmonary edema component is also possible. Overall evaluation is limited due to respiratory motion artifact. 2. Redemonstration status post esophagectomy and enteric pull-through proc edure. Findings are stable since prior as detailed above. 3. Prominent mediastinal lymph nodes, not significantly changed since prior. 4. Dilated main pulmonary artery which could be seen in pulmonary hypertension. 5. The rest of findings as above. ACT 112: Negative or not required by law. The above report was generated using voice recognition software. It may contain grammatical, syntax or spelling errors. Electronically signed by: Massiel Medley DO 12/19/2020 10:04 AM Discharge Plan Visit Data Chief Complaint: Nausea Stated Complaint: NAUSEA,VOMITING,HEADACHE,COUGH,LOW PULSE OX ED Provider: Zara Reyes Patient Disposition: Home - Self-Care
== END 2020-12-19 17:37 | disposition home or self-care (01) ==
LOC: ED 23:19 → EDINP 12-19 05:22 → INTOOBSV 12-19 05:22 → OBSVTOIN 12-19 05:22 → SUATTDRO 12-19 05:22 → EDINP 12-19 17:36

== ENCOUNTER 2020-12-20 14:38 | Inpatient (IN) ==
[2020-12-20] MEDS ORDERED: SODIUM CHLORIDE 0.9% 1000ML 1,000 ML IV SCH (15:15)
--- NOTE | 2020-12-20 15:17 | Emergency Department Note ---
History of Present Illness General Chief complaint: Illness Stated complaint: LABORED BREATHING,FEVER,COUGH,NAUSEA Time Seen by Provider: 12/20/20 15:05 Source: patient Mode of arrival: ambulatory Limitations: no limitations History of Present Illness Provider complaint: fever, dyspnea, hypoxia Onset (ago): hour(s) Associated symptoms: + cough, + fever/chills, + headaches, + malaise, + nausea/vomiting and + shortness of breath; no chest pain or no syncope This is a 35-year-old male who presents emergency department with father due to increased shortness of breath, fever, and hypoxia noted at home. Patient has a history of trisomy 21, esophageal surgery, and prior aspiration. Father states they were just admitted overnight 2 nights ago and discharged yesterday afternoon. Father states initially the patient did well at home, however this afternoon patient became more lethargic, had retching, coughing, increased work of breathing, complained of abdominal pain. They checked his oxygen using a home pulse oximeter and found to be 50. Given his prior history and recent hospitalization, they return the emergency room. States Covid yesterday was negative. Patient ill-appearing and had a pulse ox of 70% on initial presentation in triage. He was immediately brought back to room B1. Pt seen during a time of high acuity and national emergency pandemic while wearing PPE. Home Medications Medication Instructions Recorded Confirmed Type fexofenadine 180 mg tablet 180 mg PO DAILY 12/13/20 12/20/20 History (Angelica Allergy) triamcinolone acetonide 55 mcg 2 spray INTRANASAL DAILY 12/13/20 12/20/20 History nasal spray aerosol econazole 1 % topical cream 1 applic TOPICAL BID 12/18/20 12/20/20 History ipratropium 20 mcg-albuterol 100 1 puff INHALATION BID 12/18/20 12/20/20 History mcg/actuation mist for inhalation (Combivent Respimat) multivitamin 1 tab PO DAILY 12/20/20 12/20/20 History Allergies Allergy/AdvReac Type Severity Reaction Status Date / Time gluten Allergy Severe Abdominal Verified 12/20/20 16:46 Pain Past Med/Surg History Medical History Abdominal pain Aspiration into airway Esophageal stricture reconstructed esophagus Trisomy 21 Surgical History History of esophageal surgery reconstructed esophagus Social History Smoking Status: Never smoker Hx Alcohol Use: No Hx Substance Use: No Preferred Language: Upper Sorbian Communication Ability: Impaired Communication Ability Comment: Father at bedside Transportation Assistant Required: No Beliefs That Will Affect Care: None marital status: Single Current Living Situation: Family Other Information That Helps Us Care for You: No Feels Safe at Home: Yes Safety Concerns: Feels Safe At This Time Assistive Devices: Oxygen - Continuous Review of Systems See HPI for pertinent positives & negatives. All systems reviewed & are unremarkable except as noted in HPI & below (Father provides most of information, patient can answer some questions) Physical Exam Vital Signs Vital Signs - 24 hr 12/20/20 14:48 12/20/20 15:08 12/20/20 15:15 Temperature 38.2 C H Temperature Source Temporal Artery Scan Pulse Rate 103 H Pulse Rate [Apical] 95 H Respiratory Rate 24 20 Respiratory Effort / Characteristics Labored Non-Labored Spontaneous Respiratory Depth Normal Respiratory Pattern Regular Blood Pressure 110/66 Blood Pressure [Right Arm] 99/61 L Blood Pressure Mean 80 Blood Pressure Mean [Right Arm] 73 Pulse Oximetry 70 L 70 L 98 Oxygen Delivery Method Room Air Oxymask Oxymask Oxygen Flow Rate 0 Sepsis Recent Fever Within 48 Hours Yes Sepsis New/Unexplained Change in Mental Status No Sepsis Action Taken by Nursing Physician Notified End Tidal CO2 (18-54mmHg) 29 Oxygen Flow Rate - Titration 10 Pulse Oximetry Post Tiitration 95 12/20/20 15:31 12/20/20 15:45 12/20/20 15:46 Temperature Temperature Source Pulse Rate Pulse Rate [Apical] 88 87 Respiratory Rate 20 24 Respiratory Effort / Characteristics Non-Labored Spontaneous Respiratory Depth Respiratory Pattern Blood Pressure Blood Pressure [Right Arm] 102/61 106/59 L Blood Pressure Mean Blood Pressure Mean [Right Arm] 74 74 Pulse Oximetry 97 96 Oxygen Delivery Method Oxymask Oxymask Oxymask Oxygen Flow Rate Sepsis Recent Fever Within 48 Hours Sepsis New/Unexplained Change in Mental Status Sepsis Action Taken by Nursing End Tidal CO2 (18-54mmHg) 39 Oxygen Flow Rate - Titration Pulse Oximetry Post Tiitration GENERAL: alert, ill appearing, well nourished, moderate distress, non-toxic EYE EXAM: normal conjunctiva, PERRL and EOM's grossly intact OROPHARYNX: no exudate, no erythema, lips, buccal mucosa, and tongue normal and mucous membranes are moist NECK: supple, no nuchal rigidity, no adenopathy, non-tender LUNGS: Decreased to auscultation. Normal chest wall mechanics, bibasilar rales noted, coarse cough, tachypnea, increased work of breathing, retractions noted over patient's prior surgical site HEART: no murmurs, S1 normal and S2 normal, large scar noted to anterior chest wall just left of midline consistent with prior repair of esophagus ABDOMEN: abdomen soft, non-tender, normo-active bowel sounds, no masses, no rebound or guarding. BACK: Back is symmetrical on inspection and there is no deformity, no midline tenderness, no CVA tenderness. SKIN: no rashes and no bruising UPPER EXTREMITIES: upper extremities are grossly normal. FROM, nml pulses b/l. LOWER EXTREMITIES: No pitting edema. FROM, nml pulses b/l. NEURO EXAM: Normal sensorium per father, cranial nerves II-XII grossly intact, normal speech, no gross weakness of arms, no gross weakness of legs. Gross sensation intact. Course Course 1526: Sats holding on anoxia mask, heart rate improved. 1600: Patient continues to appear improved. Tolerating oxygen via oxygen mask, and at 97%. Father states he continues to appear well and is more alert and conversational. 1632: Updated father on additional results. Vital signs stable. Hospitalist aware and will readmit. 1740: Patient well-appearing, oxygen being able to wean down, patient talking to mother via FaceTime. Denies any current pain. Administered Medications Albuterol (Albuterol Hfa 8 Gm Inhaler) 1 puffs INH BID [facility] Stop: 01/19/21 20:59 Last Admin: 12/20/20 20:41 Dose: 1 puffs Documented by: [id number] Piperacillin Sod/Tazobactam (Sod 3.375 gm/ Dextrose) 115 mls @ 28.75 mls/hr IV Q8H [facility]; Protocol Stop: 12/27/20 20:59 Last Admin: 12/20/20 21:08 Dose: 28.8 mls/hr Documented by: [id number] Ipratropium [place] (Ipratropium [place] Hfa Inhaler) 1 puffs INH BID [facility] Stop: 01/19/21 20:59 Last Admin: 12/20/20 20:40 Dose: 1 puffs Documented by: [id number] Discontinued Medications Sodium Chloride (Nss 1000ml) 1,000 mls @ 999 mls/hr IV .Q1H1M [facility] Stop: 12/20/20 16:15 Last Infusion: 12/20/20 16:21 Dose: 0 mls/hr Documented by: [id number] Admin: 12/20/20 15:20 Dose: 999 mls/hr Documented by: [id number] Acetaminophen (Ofirmev) 1,000 mg in 100 mls @ 400 mls/hr IV NOW STA Stop: 12/20/20 15:33 Last Infusion: 12/20/20 15:49 Dose: 0 mls/hr Documented by: [id number] Admin: 12/20/20 15:33 Dose: 400 mls/hr Documented by: [id number] Piperacillin Sod/Tazobactam Sod (Zosyn) 4.5 gm in 120 mls @ 240 mls/hr IV NOW ONE Stop: 12/20/20 16:05 Last Infusion: 12/20/20 16:14 Dose: 0 mls/hr Documented by: [id number] Admin: 12/20/20 15:44 Dose: 240 mls/hr Documented by: [id number] Sodium Chloride (Nss 1000ml) 1,000 mls @ 999 mls/hr IV .Q1H1M ONE Stop: 12/20/20 18:13 Last Infusion: 12/20/20 18:27 Dose: 0 mls/hr Documented by: [id number] Admin: 12/20/20 17:26 Dose: 999 mls/hr Documented by: [id number] Sodium Chloride (Nss 1000ml) 1,000 mls @ 999 mls/hr IV .Q1H1M ONE Stop: 12/20/20 20:23 Last Admin: 12/20/20 19:55 Dose: 999 mls/hr Documented by: [id number] Ondansetron HCl (Ondansetron Inj 2 Mg/Ml 2 Ml Vial) 4 mg IV NOW STA Stop: 12/20/20 15:20 Last Admin: 12/20/20 15:34 Dose: 4 mg Documented by: [id number] Critical Care Time Critical Care Time: Yes Total Critical Care Time: 48 Critical care of 48 min performed to assess and manage high likelihood of life- threatening sepsis and respiratory failure, involving labs and imaging performed with assessment to evaluate sepsis and respiratory failure diagnosis with frequent reassessment. This time includes bedside time, treatment discussions with patient/family/consultants, documentation time and excludes procedure time. Medical Decision Making Differential Diagnosis Differential diagnoses includes but is not limited to pneumonia, bronchitis, COPD/Asthma exacerbation, pneumothorax, pulmonary embolism, congestive heart failure, acute coronary syndrome Medical Records Attestation: I reviewed the patient's medical records. Home Medications Current Medication List: was personally reviewed by me Laboratory Data Attestation: I reviewed the patient's lab results. Result diagrams: 12/20/20 15:10 12/20/20 15:10 Lab Results 12/20/20 12/20/20 12/20/20 Range/Units 15:03 15:03 15:10 WBC 12.87 H (4.8-10.8) K/uL RBC 4.43 L (4.7-6.1) M/uL Hgb 13.6 L (14.0-18.0) g/dL Hct 42.1 (42-52) % MCV 95.0 (80-100) fL MCH 30.7 (25-34) pg MCHC 32.3 (32-36) g/dL RDW Std Deviation 51.8 H (36.4-46.3) fL RDW Coeff of Jorge 14.8 H (11.5-14.5) % Plt Count 315 (130-400) K/uL MPV 10.3 (7.4-10.4) fL Immature Gran % (Auto) 0.3 % Neut % (Auto) 85.8 % Lymph % (Auto) 5.7 % [place] % (Auto) 7.7 % Eos % (Auto) 0.2 % Baso % (Auto) 0.3 % Neut # (Auto) 11.05 H (1.4-6.5) K/uL Lymph # (Auto) 0.73 L (1.2-3.4) K/uL [place] # (Auto) 0.99 H (0.11-0.59) K/uL Eos # (Auto) 0.02 (0-0.5) K/uL Baso # (Auto) 0.04 (0-0.2) K/uL Immature Gran # (Auto) 0.04 H (0.00-0.02) K/uL Sodium (136-145) mmol/L Potassium (3.5-5.1) mmol/L Chloride (98-107) mmol/L Carbon Dioxide (21-32) mmol/L Anion Gap (3-11) BUN (7-18) mg/dl Creatinine (0.6-1.4) mg/dl Est Cr Clr Drug Dosing ml/min Est GFR ( Amer) ml/min Est GFR (Non-Af Amer) ml/min BUN/Creatinine Ratio (10-20) Glucose (70-99) mg/dl Lactate (0.4-2.0) mmol/L Calcium (8.5-10.1) mg/dl Magnesium (1.8-2.4) mg/dl Total Bilirubin (0.2-1) mg/dl AST (15-37) U/L ALT (12-78) U/L Alkaline Phosphatase (45-117) U/L Troponin I (0-0.045) ng/ml Total Protein (6.4-8.2) gm/dl Albumin (3.4-5.0) gm/dl Globulin (2.5-4.0) gm/dl Albumin/Globulin Ratio (0.9-2) Procalcitonin (0-0.5) ng/ml Adenovirus (PCR) Not Detected (NotDetected) B. pertussis DNA (PCR) Not Detected (NotDetected) B.parapertussis DNA PCR Not Detected (NotDetected) C. pneumoniae DNA (PCR) Not Detected (NotDetected) Coronavirus OC43 (PCR) Not Detected (NotDetected) Coronavirus HKU1 (PCR) Not Detected (NotDetected) Coronavirus 229E (PCR) Not Detected (NotDetected) COVID-19 Eval Order RESPNP at [facility] SARS-CoV-2 (PCR) Not Detected (NotDetected) Coronavirus NL63 (PCR) Not Detected (NotDetected) Human Metapneumovir PCR Not Detected (NotDetected) Influenza Type A (PCR) Not Detected (NotDetected) Influenza Type B (PCR) Not Detected (NotDetected) M. pneumoniae (PCR) Not Detected (NotDetected) Parainfluenza 1 (PCR) Not Detected (NotDetected) Parainfluenza 2 (PCR) Not Detected (NotDetected) Parainfluenza 3 (PCR) Not Detected (NotDetected) Parainfluenza 4 (PCR) Not Detected (NotDetected) RSV (PCR) Not Detected (NotDetected) Entero/Rhino (PCR) Not Detected (NotDetected) 12/20/20 12/20/20 12/20/20 Range/Units 15:10 15:10 15:10 WBC (4.8-10.8) K/uL RBC (4.7-6.1) M/uL Hgb (14.0-18.0) g/dL Hct (42-52) % MCV (80-100) fL MCH (25-34) pg MCHC (32-36) g/dL RDW Std Deviation (36.4-46.3) fL RDW Coeff of Jorge (11.5-14.5) % Plt Count (130-400) K/uL MPV (7.4-10.4) fL Immature Gran % (Auto) % Neut % (Auto) % Lymph % (Auto) % [place] % (Auto) % Eos % (Auto) % Baso % (Auto) % Neut # (Auto) (1.4-6.5) K/uL Lymph # (Auto) (1.2-3.4) K/uL [place] # (Auto) (0.11-0.59) K/uL Eos # (Auto) (0-0.5) K/uL Baso # (Auto) (0-0.2) K/uL Immature Gran # (Auto) (0.00-0.02) K/uL Sodium 139 (136-145) mmol/L Potassium 3.7 (3.5-5.1) mmol/L Chloride 104 (98-107) mmol/L Carbon Dioxide 31 (21-32) mmol/L Anion Gap 4.0 (3-11) BUN 11 (7-18) mg/dl Creatinine 1.06 (0.6-1.4) mg/dl Est Cr Clr Drug Dosing 65.6 ml/min Est GFR ( Amer) 104.9 ml/min Est GFR (Non-Af Amer) 90.5 ml/min BUN/Creatinine Ratio 10.3 (10-20) Glucose 116 H (70-99) mg/dl Lactate 1.7 (0.4-2.0) mmol/L Calcium 8.2 L (8.5-10.1) mg/dl Magnesium 2.1 (1.8-2.4) mg/dl Total Bilirubin 0.2 (0.2-1) mg/dl AST 15 (15-37) U/L ALT 25 (12-78) U/L Alkaline Phosphatase 78 (45-117) U/L Troponin I < 0.015 (0-0.045) ng/ml Total Protein 7.3 (6.4-8.2) gm/dl Albumin 3.0 L (3.4-5.0) gm/dl Globulin 4.3 H (2.5-4.0) gm/dl Albumin/Globulin Ratio 0.7 L (0.9-2) Procalcitonin 0.18 (0-0.5) ng/ml Adenovirus (PCR) (NotDetected) B. pertussis DNA (PCR) (NotDetected) B.parapertussis DNA PCR (NotDetected) C. pneumoniae DNA (PCR) (NotDetected) Coronavirus OC43 (PCR) (NotDetected) Coronavirus HKU1 (PCR) (NotDetected) Coronavirus 229E (PCR) (NotDetected) COVID-19 Eval Order SARS-CoV-2 (PCR) (NotDetected) Coronavirus NL63 (PCR) (NotDetected) Human Metapneumovir PCR (NotDetected) Influenza Type A (PCR) (NotDetected) Influenza Type B (PCR) (NotDetected) M. pneumoniae (PCR) (NotDetected) Parainfluenza 1 (PCR) (NotDetected) Parainfluenza 2 (PCR) (NotDetected) Parainfluenza 3 (PCR) (NotDetected) Parainfluenza 4 (PCR) (NotDetected) RSV (PCR) (NotDetected) Entero/Rhino (PCR) (NotDetected) Imaging Data Radiologist's Impression: Chest X-Ray 12/20/20 15:11 XR chest 1V portable CLINICAL HISTORY: Sepsis. COMPARISON STUDY: Chest CT and chest radiograph December 19, 2020. FINDINGS: Esophagectomy with gastric pull up is better depicted on chest CT. Cardiomediastinal silhouette is stable. There is a small left pleural effusion. Bilateral airspace opacities and interstitial thickening have progressed since prior examination. IMPRESSION: 1. Progression of bilateral airspace opacities and interstitial thickening. The findings favor an infectious process. Superimposed pulmonary edema cannot be excluded. 2. Small left pleural effusion. 3. Status post esophagectomy with gastric pull-up, better depicted on prior chest CT. ACT 112: Negative or not required by law. Electronically signed by: Manuel Reyez M.D. 12/20/2020 4:13 PM ECG Data Attestation: I personally reviewed and interpreted this ECG as follows: Indication: + SOB/dyspnea Rate (beats per minute): 88 Rhythm: + normal sinus ECG Intervals/blocks: + Normal QRS and + Normal QT ECG [place]: + Normal ECG ST segments: + Normal ST segments MDM Narrative This is an ill-appearing 35-year-old trisomy 21 patient with a history of aspiration who presents emergency room after being discharged yesterday following evaluation. Patient appeared in distress with room air saturation of 70%, increased work of breathing, was immediately placed and B1 were labs are drawn and sent, chest x-ray ordered, patient placed on oxygen mask and hooked up to telemetry. Patient's father is the primary historian and is most concerned about aspiration as he has had this previously. Patient with a mild leukocytosis, chest x-ray does appear worse compared to prior. Patient also did previously have CT yesterday. IV fluids started as patient's blood pressure was initially soft, in the upper 90s over 50s and 60s although patient continued to improve clinically once he was placed on oxygen and saturations improved. Labs and cultures sent, patient empirically started on IV Zosyn, case discussed with hospitalist for additional evaluation and management. IV fluids continued, patient did receive 30 mg/kg based on weight. Lactic and pro calcitonin were reassuring. It is unclear if patient did not have any further lab abnormalities due to empiric antibiotic treatment yesterday however patient not discharged on antibiotics. Do not suspect cardiac or vascular etiology. I do not suspect PE. An order was placed for continuous cardiac monitoring. The monitor shows a rate of _89_ with normal sinus__ rhythm. Impression & Plan Sepsis, Aspiration pneumonia, Dehydration, Abdominal pain, Respiratory failure Discharge Plan Visit Data Chief Complaint: Illness Stated Complaint: LABORED BREATHING,FEVER,COUGH,NAUSEA ED Provider: Audra Anand Discharge Problem: Sepsis, Aspiration pneumonia, Dehydration, Abdominal pain, Respiratory failure Patient Disposition: Admitted As Inpatient Discharge Instructions Interventions: ED Discharge Assessment Last Done: 12/20/20 18:32 Discharge Problem: Sepsis Qualifiers: Sepsis type: sepsis due to unspecified organism Sepsis acute organ dysfunction status: with acute organ dysfunction Severe sepsis acute organ dysfunction type: acute respiratory failure Acute respiratory failure type: with hypoxia Severe sepsis shock status: without septic shock Qualified Code(s): A41.9 - Sepsis, unspecified organism Aspiration pneumonia Qualifiers: Aspiration pneumonia type: unspecified Laterality: bilateral Lung location: lower lobe of lung Qualified Code(s): J69.0 - Pneumonitis due to inhalation of food and vomit Abdominal pain Qualifiers: Abdominal location: generalized Qualified Code(s): R10.84 - Generalized abdominal pain Respiratory failure Qualifiers: Chronicity: acute Respiratory failure complication: hypoxia Qualified Code(s): J96.01 - Acute respiratory failure with hypoxia
[2020-12-20] MEDS ORDERED: ACETAMINOPHEN 1,000 MG/100 ML VIAL IV STA (15:19)
[2020-12-20] MEDS ORDERED: ONDANSETRON INJ 2 MG/ML 2 ML VIAL IV STA (15:19)
--- NOTE | 2020-12-20 15:33 | History & Physical Report ---
Date of Service December 20, 2020 History of Present Illness Primary Care Provider: Tay Billings Jr, Allergies Allergy/AdvReac Type Severity Reaction Status Date / Time gluten Allergy Severe Abdominal Verified 12/18/20 23:40 Pain Home Medications Medication Instructions Recorded Confirmed Type multivitamin (Daily Multiple) 1 tab PO DAILY 08/04/19 12/18/20 History fexofenadine 180 mg tablet 180 mg PO DAILY 12/13/20 12/18/20 History (Angelica Allergy) triamcinolone acetonide 55 mcg 2 spray INTRANASAL DAILY 12/13/20 12/18/20 H istory nasal spray aerosol econazole 1 % topical cream 1 applic TOPICAL BID 12/18/20 12/18/20 History ipratropium 20 mcg-albuterol 100 1 puff INHALATION BID 12/18/20 12/18/20 History mcg/actuation mist for inhalation (Combivent Respimat) Past Med/Surg History Medical History Abdominal pain Aspiration into airway Esophageal stricture reconstructed esophagus Trisomy 21 Surgical History History of esophageal surgery reconstructed esophagus Social History Smoking Status: Never smoker Hx Alcohol Use: No Hx Substance Use: No Preferred Language: Bhutanese Communication Ability: Impaired Vp Clinical Required: No Beliefs That Will Affect Care: None marital status: Single Current Living Situation: Family Feels Safe at Home: Yes Assistive Devices: Oxygen - Continuous Results & Data Results & Data ([facility]) Vital Signs (Past 12 Hours) Vital Signs Temp Pulse Pulse Resp BP BP Pulse Ox 12/20/20 15:15 95 H 20 99/61 L 98 12/20/20 15:08 70 L 12/20/20 14:48 100.8 F H 103 H 24 110/66 70 L PG Care Time/CCT Total # of Minutes Spent Total Time Spent with Patient: Total time spent is greater than 50% in coordination of care (as documented) at patient's floor/unit and/or counseling patient: Coding
[2020-12-20] MEDS ORDERED: PIPERACILL/TAZOBAC CONSULT ACTIVE PRN ×3 (15:36→19:23)
[2020-12-20] MEDS ORDERED: PIPERACILLIN/TAZOBACTAM 4.5 GM/120 ML BAG IV ONE (15:36)
[2020-12-20 15:42] LABS: Basophils # (auto) 0.04 K/uL (0-0.2); Basophils % (auto) 0.3 %; Eosinophils # (auto) 0.02 K/uL (0-0.5); Eosinophils % (auto) 0.2 %; Hematocrit (blood only) 42.1 % (42-52); Hemoglobin 13.6 g/dL (14.0-18.0); Immature Granulocytes # (auto) 0.04 K/uL (0.00-0.02); Immature Granulocytes % (auto) 0.3 %; Lymphocytes # (auto) 0.73 K/uL (1.2-3.4); Lymphocytes % (auto) 5.7 %; Mean Corpuscular Hemoglobin 30.7 pg (25-34); Mean Corpuscular Hgb Conc 32.3 g/dL (32-36); Mean Platelet Volume 10.3 fL (7.4-10.4); Monocytes # (auto) 0.99 K/uL (0.11-0.59); Monocytes % (auto) 7.7 %; Neutrophils # (auto) 11.05 K/uL (1.4-6.5); Neutrophils % (auto) 85.8 %; Platelet Count 315 K/uL (130-400); RDW Coefficient of Variation 14.8 % (11.5-14.5); RDW Standard Deviation 51.8 fL (36.4-46.3); Red Blood Count 4.43 M/uL (4.7-6.1); White Blood Count 12.87 K/uL (4.8-10.8)
[2020-12-20 15:55] LABS: Alanine Aminotransferase 25 U/L (12-78); Aspartate Aminotransferase 15 U/L (15-37); BUN Creatinine Ratio 10.3 (10-20); Blood Urea Nitrogen 11 mg/dl (7-18); Calcium 8.2 mg/dl (8.5-10.1); Carbon Dioxide 31 mmol/L (21-32); Chloride 104 mmol/L (98-107); Creatinine Clr Calc Pharmacy 65.6 ml/min; Est GFR (African American) 104.9 ml/min; Est GFR (Non-African American) 90.5 ml/min; Glucose 116 mg/dl (70-99); Magnesium 2.1 mg/dl (1.8-2.4); Potassium 3.7 mmol/L (3.5-5.1); Sodium 139 mmol/L (136-145)
[2020-12-20 15:59] LABS: Albumin Globulin Ratio 0.7 (0.9-2); Alkaline Phosphatase 78 U/L (45-117); Bilirubin,Total 0.2 mg/dl (0.2-1); Globulin 4.3 gm/dl (2.5-4.0); Total Protein 7.3 gm/dl (6.4-8.2); Troponin I < 0.015 ng/ml (0-0.045)
--- NOTE | 2020-12-20 16:13 | History & Physical Report ---
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 Acute Hypoxic Respiratory Failure due to Aspiration Pneumonia - CXR with bilateral opacities which have progressed from previous and interstitial thickening, favoring an infectious process - BP soft, tachypneic, febrile - Procal and lactate normal - Biofire negative - IV fluids bolus X2 - Admit to PCU - Continue Zosyn - Consulted pulmonology as patient was seen on prior admission - Aspiration precautions - Continue oxygen supplementation, wean as able - Flutter valve - Speech therapy consulted last visit - recommend GI consult. Will address once patient more stable. Allergic Rhinitis - Continue fexofenadine - Continue home Combivent History of Esophageal Stricture with Esophageal Reconstruction - Patient previously seen by GI at [place] - Ongoing retching/nausea and questionable vomiting - Will consult [facility] to evaluate for possible esophageal issues at this time Code: FULL CODE Diet: Regular, easy to chew DVT: SCD's Dispo: PCU/Telemetry (2) Allergic rhinitis: (3) Bronchostenosis: (4) Hypoxia: (5) Esophageal stricture: History of Present Illness Primary Care Provider: Tay Billings Jr, Oswaldo Reyes is a 35-year-old male with a past medical history of esophageal stricture, trisomy 21, allergic rhinitis, gastritis and prior esophageal reconstruction presenting with fever, chills, cough, nausea, and hypoxia. He was admitted to [facility] on 12/19 in the morning due to cough preceded by nausea and likely aspiration. He remained hemodynamically stable in the hospital and throughout the day had been saturating well on room air. He was also evaluated by pulmonology who recommended holding off on antibiotics due to patient not showing any convincing signs of infection at the time and remaining stable throughout his admission. As such, he was discharged home with instructions to return if he did deteriorate. The patient's father mentions that the patient was initially doing well at home but this afternoon he seemed lethargic, was coughing more, and had increased work of breathing. Additionally, father states patient was retching, but denies him having vomited anything. Per the father, they checked pulse ox at home and found it to be at 50%, at which point they decided to return to the hospital. ED course: Patient was found to have an oxygen saturation of 70% on room air. He was also febrile and had low blood pressure. He was subsequently placed on oxygen mask with good response and saturations up to high 90s. Repeat CXR today reveals progression of bilateral airspace opacities and interstitial thickening, favoring an infectious process. Given NSS 1 L bolus x1 as well as Zosyn 4.5 g IV x1. Labs show a WBC of 12.87, which is higher than 11.51 yesterday, stable hemoglobin. All electrolytes normal, except for mildly decreased calcium. Troponin is negative and procalcitonin remains negative as well. Lactate was 1.7. Blood cultures were ordered and are pending. Allergies Allergy/AdvReac Type Severity Reaction Status Date / Time gluten Allergy Severe Abdominal Verified 12/20/20 16:46 Pain Home Medications Medication Instructions Recorded Confirmed Type fexofenadine 180 mg tablet 180 mg PO DAILY 12/13/20 12/20/20 History (Angelica Allergy) triamcinolone acetonide 55 mcg 2 spray INTRANASAL DAILY 12/13/20 12/20/20 History nasal spray aerosol econazole 1 % topical cream 1 applic TOPICAL BID 12/18/20 12/20/20 History ipratropium 20 mcg-albuterol 100 1 puff INHALATION BID 12/18/20 12/20/20 History mcg/actuation mist for inhalation (Combivent Respimat) multivitamin 1 tab PO DAILY 12/20/20 12/20/20 History Past Med/Surg History Medical History Abdominal pain Aspiration into airway Esophageal stricture reconstructed esophagus Trisomy 21 Surgical History History of esophageal surgery reconstructed esophagus Social History Smoking Status: Never smoker Hx Alcohol Use: No Hx Substance Use: No Preferred Language: Tunisian Communication Ability: Impaired Frickertron Checker Required: No Beliefs That Will Affect Care: None marital status: Single Current Living Situation: Family Feels Safe at Home: Yes Assistive Devices: Oxygen - Continuous Review of Systems Review of Systems: All systems reviewed & are unremarkable except as noted in HPI & below Physical Exam Physical Exam: GENERAL: A&Ox3. NAD. NECK: No JVD. No lymphadenopathy. CHEST/LUNGS: CTAB A/P. No crackles, wheezes, rales, rhonchi. HEART: RRR. No m/g/r. ABDOMEN: NT/ND, soft. BS+ x4. EXTREMITIES: No cyanosis, no clubbing, no edema SKIN: Warm and dry. No rashes or lesions. PSYCHIATRIC: Euthymic affect, no SI, no pressured speech, no hallucinations NEUROLOGIC: No FND. CN II-XII grossly intact. Results & Data Results & Data ([facility]) Vital Signs (Past 12 Hours) Vital Signs Temp Pulse Pulse Resp BP BP Pulse Ox 12/20/20 15:46 87 24 106/59 L 96 12/20/20 15:31 88 20 102/61 97 12/20/20 15:15 95 H 20 99/61 L 98 12/20/20 15:08 70 L 12/20/20 14:48 38.2 C H 103 H 24 110/66 70 L Supervising Physician Co-Signing Physician Notes Resident Physician Supervision Note: I independently interviewed and examined the patient and verified the garner history and physical, reviewed labs and image studies and agree with resident Dr. Phan findings and care plan. Resident Activity Tracking Resident Involvement: Resident Care Provided Care Provided: Adult [facility] Medicine
--- NOTE | 2020-12-20 16:15 | XRay Report ---
XR chest 1V portable CLINICAL HISTORY: Sepsis. COMPARISON STUDY: Chest CT and chest radiograph December 19, 2020. FINDINGS: Esophagectomy with gastric pull up is better depicted on chest CT. Cardiomediastinal silhou ette is stable. There is a small left pleural effusion. Bilateral airspace opacities and interstitial thickening have progressed since prior examination. IMPRESSION: 1. Progression of bilateral airspace opacities and interstitial thickening. The findings favor an inf ectious process. Superimposed pulmonary edema cannot be excluded. 2. Small left pleural effusion. 3. Status post esophagectomy with gastric pull-up, better depicted on prior chest CT. ACT 112: Negative or not required by law. Electronically signed by: Manuel Reyez M.D. 12/20/2020 4:13 PM
[2020-12-20 17:05] LABS: Adenovirus PCR Not Detected (NotDetected); Bordetella parapertussis PCR Not Detected (NotDetected); Bordetella pertussis PCR Not Detected (NotDetected); Chlamydia pneumoniae PCR Not Detected (NotDetected); Coronavirus 229E PCR Not Detected (NotDetected); Coronavirus CoV-2 (COVID19)PCR Not Detected (NotDetected); Coronavirus HKU1 PCR Not Detected (NotDetected); Coronavirus NL63 PCR Not Detected (NotDetected); Coronavirus OC43PCR Not Detected (NotDetected); Human Metapneumovirus PCR Not Detected (NotDetected); Influenza A PCR Not Detected (NotDetected); Influenza B PCR Not Detected (NotDetected); Mycoplasma pneumoniae PCR Not Detected (NotDetected); Parainfluenza Virus 1 PCR Not Detected (NotDetected); Parainfluenza Virus 2 PCR Not Detected (NotDetected); Parainfluenza Virus 3 PCR Not Detected (NotDetected); Parainfluenza Virus 4 PCR Not Detected (NotDetected); Respiratory Syncytial VirusPCR Not Detected (NotDetected); Rhinovirus/Enterovirus PCR Not Detected (NotDetected)
[2020-12-20] MEDS ORDERED: SODIUM CHLORIDE 0.9% 1000ML 1,000 ML IV ONE ×2 (17:13→19:23)
[2020-12-20 17:31] LABS: Appearance Urine Clear (Clear); Bilirubin Urine Negative (Negative); Blood Urine Negative (Negative); Color Urine Yellow; Glucose Urine UA Negative (Negative); Ketones Urine Negative (Negative); Leukocyte Esterase Urine Negative (Negative); Nitrite Urine Negative (Negative); Protein Urine Negative (Negative); Specific Gravity Urine 1.008 (1.000-1.030); Urobilinogen Urine Negative (Negative)
--- NOTE | 2020-12-20 18:08 | Electrocardiogram Report ---
Test Reason : Blood Pressure : / mmHG Vent. Rate : 088 BPM Atrial Rate : 088 BPM P-R Int : 096 ms QRS Dur : 086 ms QT Int : 344 ms P-R-T Axes : 033 043 022 degrees QTc Int : 416 ms Sinus rhythm with short NM Otherwise normal ECG When compared with ECG of 19-DEC-2020 01:50, No significant change was found Confirmed by Gómez Moise ([id number]) on 12/20/2020 6:07:30 PM Referred By: Confirmed By:Gómez Moise
[2020-12-20] MEDS ORDERED: PIPERACILLIN/TAZOBACTAM 4.5 GM in DEXTROSE 5% 100 ML IV SCH (19:23)
[2020-12-20] MEDS ORDERED: ACETAMINOPHEN 325 MG TAB PO PRN (19:23)
[2020-12-20] MEDS: IPRATROPIUM BROMIDE HFA INHALER INH SCH (20:40)
[2020-12-20] MEDS: ALBUTEROL HFA 8 GM INHALER INH SCH (20:41)
[2020-12-20] MEDS ORDERED: IPRATROPIUM BROMIDE/ALBUTEROL respimat INH INH SCH (21:00)
[2020-12-20] MEDS: PIPERACILLIN/TAZOBACTAM 3.375 GM in DEXTROSE 5% 100 ML IV SCH (21:08)
[2020-12-21] MEDS: PIPERACILLIN/TAZOBACTAM 3.375 GM in DEXTROSE 5% 100 ML IV SCH ×3 (04:46→21:00)
[2020-12-21] MEDS: ALBUTEROL HFA 8 GM INHALER INH SCH ×2 (07:10→20:01)
[2020-12-21] MEDS: IPRATROPIUM BROMIDE HFA INHALER INH SCH ×2 (07:11→20:01)
[2020-12-21 07:16] LABS: Basophils # (auto) 0.05 K/uL (0-0.2); Basophils % (auto) 0.8 %; Eosinophils # (auto) 0.09 K/uL (0-0.5); Eosinophils % (auto) 1.4 %; Hematocrit (blood only) 36.7 % (42-52); Hemoglobin 11.8 g/dL (14.0-18.0); Immature Granulocytes # (auto) 0.01 K/uL (0.00-0.02); Immature Granulocytes % (auto) 0.2 %; Lymphocytes # (auto) 1.17 K/uL (1.2-3.4); Lymphocytes % (auto) 17.6 %; Mean Corpuscular Hemoglobin 30.8 pg (25-34); Mean Corpuscular Hgb Conc 32.2 g/dL (32-36); Mean Corpuscular Volume 95.8 fL (80-100); Mean Platelet Volume 10.3 fL (7.4-10.4); Monocytes # (auto) 0.79 K/uL (0.11-0.59); Monocytes % (auto) 11.9 %; Neutrophils # (auto) 4.55 K/uL (1.4-6.5); Neutrophils % (auto) 68.1 %; Platelet Count 238 K/uL (130-400); Red Blood Count 3.83 M/uL (4.7-6.1); White Blood Count 6.66 K/uL (4.8-10.8)
[2020-12-21 07:51] LABS: BUN Creatinine Ratio 7.9 (10-20); Calcium 7.9 mg/dl (8.5-10.1); Creatinine Clr Calc Pharmacy 77.1 ml/min; Est GFR (African American) 128.4 ml/min; Est GFR (Non-African American) 110.8 ml/min
[2020-12-21] MEDS: TRIAMCINOLONE ACET NASAL SPRAY 10.8ML BTL SCH (08:22)
[2020-12-21] MEDS: FEXOFENADINE HCL 180 MG TAB PO SCH (08:22)
--- NOTE | 2020-12-21 09:41 | Pulmonary Consultation ---
Date of Consultation December 21, 2020 Assessment & Plan (1) Acute respiratory failure with hypoxia: (2) Multifocal pneumonia: (3) Aspiration pneumonia: Aspiration pneumonia type: unspecified Laterality: bilateral Indira g location: lower lobe of lung Qualified Code(s): J69.0 - Pneumonitis due to inhalation of food and vomit 12/19/2020 CT chest personally reviewed: Diffuse patchy groundglass opacities appreciated bilaterally especially in the right upper lobe left lower lobe Left hemithorax shows herniation of the enteric structures likely rela chanel to pull-through procedure status post esophagectomy No mediastinal lymphadenopathy Chest x-ray 12/17/2020 personally reviewed: Worsening of the bilateral opacities especially in the hilar region --Acute hypoxic respiratory failure Secondary to multilobar pneumonia Likely aspiration Procalcitonin 0.23 Respiratory viral panel negative COVID-19 PCR negative x2 Continue with antibiotics Continue with aspiration precautions plan --History of bronchostenosis 2012 S/p dilatation, no stent was placed at [facility] No complications since then Plan: Patient's QTC is 419 Will give azithromycin for 3 days Continue with antibiotics for total of 7 days. Can transition to p.o. if the patient is able to tolerate it by tomorrow Continue with O2 supplementation to keep oxygen saturation greater than 90% Because of intellectual disability and the anatomical issues that the patient has he will always be at high risk for aspiration Recommend antiemetic medications as needed. Will defer to primary care Case was discussed with Dr. Piper Please note the above document was generated using voice recognition software. It may contain grammatical, syntax or spelling errors.Any formal questions or concerns about the content, text or information contained within the body of thi s dictation should be directly addressed to the provider for clarification. History of Present Illness Attending Physician: Erika Piper MD History of Present Illness 35-year-old male with complicated past medical history of transition zone at 21, esophageal stricture s/p reconstruction surgery in the past, history of colonic interposition asthma and seasonal allergies Patient was actually in the hospital on the where CTA showed groundglass opacities bilaterally Patient was doing well saturating on room air and he was discharged home Readmitted to the hospital on as patient got hypoxic and more lethargic at home Pulmonary consulted for the same Patient was following up with Dr. Graham as an outpatient. Notes personally reviewed. Patient is a poor historian. Patient's mother was in the room to help with the history As per the mother patient usually gets aspiration pneumonia whenever he has an episode of vomiting. Because of the complex reconstructive surgery done for the esophagus patient usually does not throw up out of the mouth. He usually aspirate Similar instances have occurred in the past Patient is capable of using a flutter valve and he brings up clear phlegm. Denies any hemoptysis. As per the mother patient had a stomach bug which led him to feeling nauseous and ending up in the hospital Patient denies any chest pain, no headache, no nausea. He says he is doing better. Social history: Non-smoker, no illicit drug use Allergies Allergy/AdvReac Type Severity Reaction Status Date / Time gluten Allergy Severe Abdominal Verified 12/20/20 16:46 Pain Home Medications Medication Instructions Recorded Confirmed Type fexofenadine 180 mg tablet 180 mg PO DAILY 12/13/20 12/20/20 History (Angelica Allergy) triamcinolone acetonide 55 mcg 2 spray INTRANASAL DAILY 12/13/20 12/20/20 History nasal spray aerosol econazole 1 % topical cream 1 applic TOPICAL BID 12/18/20 12/20/20 History ipratropium 20 mcg-albuterol 100 1 puff INHALATION BID 12/18/20 12/20/20 History mcg/actuation mist for inhalation (Combivent Respimat) multivitamin 1 tab PO DAILY 12/20/20 12/20/20 History Patient History Medical History Abdominal pain Aspiration into airway Esophageal stricture reconstructed esophagus Trisomy 21 Surgical History History of esophageal surgery reconstructed esophagus Social History Smoking Status: Never smoker Hx Alcohol Use: No Hx Substance Use: No Preferred Language: Telugu Communication Ability: Effective Communication Ability Comment: Father at bedside Medical Delivery Driver Required: No Beliefs That Will Affect Care: None marital status: Single Current Living Situation: Family Other Information That Helps Us Care for You: No Feels Safe at Home: Yes Safety Concerns: Feels Safe At This Time Assistive Devices: None Physical Exam Physical Exam: Constitutional: No acute distress HEENT: EOMI, PERRLA Respiratory system: Decreased air entry bilaterally, no wheeze, no rhonchi, positive crackles bilaterally more on the left side CVS: S1-S2 positive, no murmurs or gallops, postoperative changes appreciated on the left anterior chest Abdomen: Soft, nontender, nondistended, positive bowel sounds x4 Extremities: +2 pulses bilaterally radialis/ dorsalis pedis, no cyanosis, no edema Neuro: Awake alert oriented x3 Psych: Normal mood and affect G/U: No Johns Skin: no rashes, warm and dry Lymphatic: no cervical or axillary lymphadenopathy Results & Data Results & Data ([facility]) Vital Signs (Past 12 Hours) Vital Signs Temp Pulse Pulse Resp BP Pulse Ox 12/21/20 07:12 96 H 16 96 12/21/20 03:40 36.8 C 58 L 16 97/63 L 96 12/21/20 03:11 68 24 103/60 12/20/20 23:00 56 L 12/20/20 22:30 37 C 69 30 H 102/62 96 12/21/20 06:52 12/21/20 06:52 PG Care Time/CCT Total # of Minutes Spent Total Time Spent with Patient: Total time spent is greater than 50% in distribution coordinator rdination of care (as documented) at patient's floor/unit and/or counseling patient: Coding Level of Care Code 74580 Inpt Consult Level 5 Diagnoses Acute respiratory failure with hypoxia J96.01 Multifocal pneumonia J18.9 Aspiration pneumonia J69.0 Aspiration pneumonia type: unspecified Laterality: bilateral Lung location: lower lobe of lung
--- NOTE | 2020-12-21 10:10 | Hospitalist Progress Note ---
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 Acute Hypoxic Respiratory Failure due to Aspiration Pneumonia Sepsis in setting of aspiration pneumonia - CXR with bilateral opacities which have progressed from previous and interstitial thickening, favoring an infectious process - Procal and lactate normal - Biofire negative - White count improving today - Continue Zosyn - Consulted pulmonology considering complex history. - Continue abx, likely aspiration - Ordered urine legionella antigen and mycoplasma pneumonia IgM --both pending - Aspiration precautions - Continue oxygen supplementation, wean as able - Flutter valve - Speech therapy consulted last visit - recommend GI consult - consult added. Allergic Rhinitis - Continue fexofenadine - Continue home Combivent History of Esophageal Stricture with Esophageal Reconstruction - Patient previously seen by GI at [place] - Ongoing retching/nausea and questionable vomiting - Consult [facility] to evaluate for possible esophageal issues at this time Code: FULL CODE Diet: Regular, easy to chew DVT: SCD's Dispo: PCU/Telemetry (2) Allergic rhinitis: (3) Bronchostenosis: (4) Hypoxia: (5) Esophageal stricture: Admission and Anticipated Discharge Date Admission Date: December 20, 2020 Supervising Physician Co-Signing Physician Notes Resident Physician Supervision Note: I independently interviewed and examined the patient and verified the garner history and physical, reviewed labs and image studies and agree with resident Dr. Phan findings and care plan. Subjective Patient seen at bedside this morning. Sitting up comfortably and having breakfast without issues. He and his father both agree that his breathing is markedly improved from yesterday. He continues to have a cough, but denies any significant short of breath. Denies fever, chills, nausea, vomiting, abdominal pain, chest pain, palpitations. Review of Systems Review of Systems: All systems reviewed & are unremarkable except as noted in Subjective Physical Exam Physical Exam: GENERAL: A&Ox3. NAD. NECK: No JVD. No lymphadenopathy. CHEST/LUNGS: CTAB A/P. No crackles, wheezes, rales, rhonchi. HEART: RRR. No m/g/r. ABDOMEN: NT/ND, soft. BS+ x4. EXTREMITIES: No cyanosis, no clubbing, no edema SKIN: Warm and dry. No rashes or lesions. PSYCHIATRIC: Euthymic affect, no SI, no pressured speech, no hallucinations NEUROLOGIC: No FND. CN II-XII grossly intact. Results & Data Results & Data ([facility]) Vital Signs (Past 12 Hours) Vital Signs Temp Pulse Pulse Resp BP Pulse Ox 12/21/20 09:36 36.8 C 12/21/20 09:00 66 26 H 12/21/20 08:19 70 23 98/66 L 94 12/21/20 07:40 60 19 94/70 L 12/21/20 07:12 96 H 16 96 12/21/20 03:40 36.8 C 58 L 16 97/63 L 96 12/21/20 03:11 68 24 103/60 12/20/20 23:00 56 L 12/20/20 22:30 37 C 69 30 H 102/62 96 Resident Activity Tracking Resident Involvement: Resident Care Provided Care Provided: Adult Hospital Medicine (1) Aspiration pneumonia Aspiration pneumonia type: unspecified Laterality: bilateral Lung location: lower lobe of lung Qualified Code(s): J69.0 - Pneumonitis due to inhalation of food and vomit
[2020-12-21] MEDS: AZITHROMYCIN 500 MG in DEXTROSE 5% 250 ML IV SCH (10:36)
--- NOTE | 2020-12-21 17:30 | Gastrointestinal Consultation ---
Date of Consultation December 21, 2020 Assessment & Plan (1) Esophageal stricture: (2) Aspiration pneumonia: (3) Respiratory failure: (4) GERD with stricture: (5) History of esophageal surgery: Impression is that current pneumonia episode may be related to either a stricture or stenosis with aspiration, or gastroesophageal reflux with aspiration. New tracheoesophageal or broncho esophageal fistula seems very unlikely. Oswaldo appears to be eating a soft diet with no more difficulty than usual. Oswaldo's mother strongly objected to the suggestion that an EGD with possible dilation could be performed, stating that Owsaldo's condition deteriorates after dilation due to increased problems with GE reflux. No GI intervention is planned at this time. The head of bed should be elevated at 45 degrees at all times, Oswaldo should not be supine. It appears that he has already been advanced to his previous diet, and this should be continued with observation. Records from [facility] need to be reviewed and phone consultation with his thoracic surgeon would be helpful, prior to any intervention. We will follow the patient's progress, and intervene as requested. 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 are available at this time to review, the entire history is obtained from the patient and his mother, who were interviewed together. Mr. Reyes was admitted yesterday with bilateral aspiration pneumonia and respiratory insufficiency with fatigue and difficulty breathing, for respiratory and general support. 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 A second colon interposition operation was performed at age 5. He has required dilations only every 3-4 years, the last dilation was 3-4 years ago. He has been eating a lactose and gluten restricted soft diet with episodes of transient food bolus obstruction 2-3 times per week, relieved spontaneously with passage of the bolus, or by regurgitation of the bolus. He does not have vomiting. 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 She states that dilations have been infrequent, and that Oswaldo has more problems with reflux and aspiration related to the dilation procedures. The mother states that episodes of aspiration requiring antibiotics occur only every 5 years or so, these episodes have been infrequent. Plain films of the chest on this admission show findings consistent with esophagectomy and gastric pull up, rather than colon interposition. Awaiting records from [facility] to better define the post op anatomy Mother states there has been no recent deterioration in Oswaldo's eating pattern, no increase in obstructive symptoms that she they have noticed. Allergies Allergy/AdvReac Type Severity Reaction Status Date / Time gluten Allergy Severe Abdominal Verified 12/20/20 16:46 Pain Home Medications Medication Instructions Recorded Confirmed Type fexofenadine 180 mg tablet 180 mg PO DAILY 12/13/20 12/20/20 History (Angelica Allergy) triamcinolone acetonide 55 mcg 2 spray INTRANASAL DAILY 12/13/20 12/20/20 History nasal spray aerosol econazole 1 % topical cream 1 applic TOPICAL BID 12/18/20 12/20/20 History ipratropium 20 mcg-albuterol 100 1 puff INHALATION BID 12/18/20 12/20/20 History mcg/actuation mist for inhalation (Combivent Respimat) multivitamin 1 tab PO DAILY 12/20/20 12/20/20 History Patient History Medical History (Updated 12/21/20 @ 17:11 by Christopher Gonzalez MD) Abdominal pain Aspiration into airway Esophageal stricture reconstructed esophagus Trisomy 21 Surgical History (Updated 12/21/20 @ 17:11 by Christopher Gonzalez MD) History of esophageal surgery reconstructed esophagus Social History Smoking Status: Never smoker Hx Alcohol Use: No Hx Substance Use: No Preferred Language: Fijian Communication Ability: Effective Communication Ability Comment: Father at bedside [employer] Estate [employer] Required: No Beliefs That Will Affect Care: None marital status: Single Current Living Situation: Family Other Information That Helps Us Care for You: No Feels Safe at Home: Yes Safety Concerns: Feels Safe At This Time Assistive Devices: None Review of Systems Review of Systems: All systems reviewed & are unremarkable except as noted in HPI & below Physical Exam Physical Exam: Physical examnation deferred at time of consultation as patient was eating dinner (mashed potatoes and diced carrots) and I wanted to observe this without interruption. Results & Data ([facility]) Vital Signs (Past 12 Hours) Vital Signs Temp Pulse Pulse Resp BP Pulse Ox 12/21/20 09:36 36.8 C 12/21/20 09:00 66 26 H 12/21/20 08:19 70 23 98/66 L 94 12/21/20 07:40 60 19 94/70 L 12/21/20 07:12 96 H 16 96 Laboratory Results Laboratory Results WBC 6.66 K/uL (4.8-10.8) 12/21/20 06:52 RBC 3.83 M/uL (4.7-6.1) L 12/21/20 06:52 Hgb 11.8 g/dL (14.0-18.0) L 12/21/20 06:52 Hct 36.7 % (42-52) L 12/21/20 06:52 MCV 95.8 fL (80-100) 12/21/20 06:52 MCH 30.8 pg (25-34) 12/21/20 06:52 MCHC 32.2 g/dL (32-36) 12/21/20 06:52 RDW Std Deviation 53.0 fL (36.4-46.3) H 12/21/20 06:52 RDW Coeff of Jorge 15.0 % (11.5-14.5) H 12/21/20 06:52 Plt Count 238 K/uL (130-400) 12/21/20 06:52 MPV 10.3 fL (7.4-10.4) 12/21/20 06:52 Immature Gran % (Auto) 0.2 % 12/21/20 06:52 Neut % (Auto) 68.1 % 12/21/20 06:52 Lymph % (Auto) 17.6 % 12/21/20 06:52 [place] % (Auto) 11.9 % 12/21/20 06:52 Eos % (Auto) 1.4 % 12/21/20 06:52 Baso % (Auto) 0.8 % 12/21/20 06:52 Neut # (Auto) 4.55 K/uL (1.4-6.5) 12/21/20 06:52 Lymph # (Auto) 1.17 K/uL (1.2-3.4) L 12/21/20 06:52 [place] # (Auto) 0.79 K/uL (0.11-0.59) H 12/21/20 06:52 Eos # (Auto) 0.09 K/uL (0-0.5) 12/21/20 06:52 Baso # (Auto) 0.05 K/uL (0-0.2) 12/21/20 06:52 Immature Gran # (Auto) 0.01 K/uL (0.00-0.02) 12/21/20 06:52 Sodium 141 mmol/L (136-145) 12/21/20 06:52 Potassium 4.0 mmol/L (3.5-5.1) 12/21/20 06:52 Chloride 107 mmol/L (98-107) 12/21/20 06:52 Carbon Dioxide 34 mmol/L (21-32) H 12/21/20 06:52 Anion Gap 0 (3-11) L 12/21/20 06:52 BUN 7 mg/dl (7-18) 12/21/20 06:52 Creatinine 0.89 mg/dl (0.6-1.4) 12/21/20 06:52 Est Cr Clr Drug Dosing 77.1 ml/min 12/21/20 06:52 Est GFR ( Amer) 128.4 ml/min 12/21/20 06:52 Est GFR (Non-Af Amer) 110.8 ml/min 12/21/20 06:52 BUN/Creatinine Ratio 7.9 (10-20) L 12/21/20 06:52 Glucose 93 mg/dl (70-99) 12/21/20 06:52 Lactate 1.7 mmol/L (0.4-2.0) 12/20/20 15:10 Calcium 7.9 mg/dl (8.5-10.1) L 12/21/20 06:52 Magnesium 2.1 mg/dl (1.8-2.4) 12/20/20 15:10 Total Bilirubin 0.2 mg/dl (0.2-1) 12/20/20 15:10 AST 15 U/L (15-37) 12/20/20 15:10 ALT 25 U/L (12-78) 12/20/20 15:10 Alkaline Phosphatase 78 U/L (45-117) 12/20/20 15:10 Troponin I < 0.015 ng/ml (0-0.045) 12/20/20 15:10 NT-Pro-B Natriuret Pep 291 pg/ml (0-450) 12/21/20 09:49 Total Protein 7.3 gm/dl (6.4-8.2) 12/20/20 15:10 Albumin 3.0 gm/dl (3.4-5.0) L 12/20/20 15:10 Globulin 4.3 gm/dl (2.5-4.0) H 12/20/20 15:10 Albumin/Globulin Ratio 0.7 (0.9-2) L 12/20/20 15:10 Procalcitonin 0.18 ng/ml (0-0.5) 12/20/20 15:10 Urine Color Yellow 12/20/20 17:16 Urine Appearance Clear (Clear) 12/20/20 17:16 Urine pH 6.0 (4.5-7.5) 12/20/20 17:16 Ur Specific [place] 1.008 (1.000-1.030) 12/20/20 17:16 Urine Protein Negative (Negative) 12/20/20 17:16 Urine Glucose (UA) Negative (Negative) 12/20/20 17:16 Urine Ketones Negative (Negative) 12/20/20 17:16 Urine Blood Negative (Negative) 12/20/20 17:16 Urine Nitrite Negative (Negative) 12/20/20 17:16 Urine Bilirubin Negative (Negative) 12/20/20 17:16 Urine Urobilinogen Negative (Negative) 12/20/20 17:16 Ur Leukocyte Esterase Negative (Negative) 12/20/20 17:16 Nasal Screen MRSA (PCR) Negative (Negative) 12/20/20 20:03 Adenovirus (PCR) Not Detected (NotDetected) 12/20/20 15:03 B. pertussis DNA (PCR) Not Detected (NotDetected) 12/20/20 15:03 B.parapertussis DNA PCR Not Detected (NotDetected) 12/20/20 15:03 C. pneumoniae DNA (PCR) Not Detected (NotDetected) 12/20/20 15:03 Coronavirus OC43 (PCR) Not Detected (NotDetected) 12/20/20 15:03 Coronavirus HKU1 (PCR) Not Detected (NotDetected) 12/20/20 15:03 Coronavirus 229E (PCR) Not Detected (NotDetected) 12/20/20 15:03 COVID-19 Eval Order RESPNP at [facility] 12/20/20 15:03 SARS-CoV-2 (PCR) Not Detected (NotDetected) 12/20/20 15:03 Coronavirus NL63 (PCR) Not Detected (NotDetected) 12/20/20 15:03 Human Metapneumovir PCR Not Detected (NotDetected) 12/20/20 15:03 Influenza Type A (PCR) Not Detected (NotDetected) 12/20/20 15:03 Influenza Type B (PCR) Not Detected (NotDetected) 12/20/20 15:03 M. pneumoniae (PCR) Not Detected (NotDetected) 12/20/20 15:03 Parainfluenza 1 (PCR) Not Detected (NotDetected) 12/20/20 15:03 Parainfluenza 2 (PCR) Not Detected (NotDetected) 12/20/20 15:03 Parainfluenza 3 (PCR) Not Detected (NotDetected) 12/20/20 15:03 Parainfluenza 4 (PCR) Not Detected (NotDetected) 12/20/20 15:03 RSV (PCR) Not Detected (NotDetected) 12/20/20 15:03 Entero/Rhino (PCR) Not Detected (NotDetected) 12/20/20 15:03 Impressions Chest X-Ray 12/20/20 15:11 XR chest 1V portable CLINICAL HISTORY: Sepsis. COMPARISON STUDY: Chest CT and chest radiograph December 19, 2020. FINDINGS: Esophagectomy with gastric pull up is better depicted on chest CT. Cardiomediastinal silhouette is stable. There is a small left pleural effusion. Bilateral airspace opacities and interstitial thickening have progressed since prior examination. IMPRESSION: 1. Progression of bilateral airspace opacities and interstitial thickening. The findings favor an infectious process. Superimposed pulmonary edema cannot be excluded. 2. Small left pleural effusion. 3. Status post esophagectomy with gastric pull-up, better depicted on prior chest CT. ACT 112: Negative or not required by law. Electronically signed by: Manuel Reyez M.D. 12/20/2020 4:13 PM (1) Aspiration pneumonia Aspiration pneumonia type: unspecified Laterality: bilateral Lung location: lower lobe of lung Qualified Code(s): J69.0 - Pneumonitis due to inhalation of food and vomit (2) Respiratory failure Chronicity: acute Respiratory failure complication: hypoxia Qualified Code(s): J96.01 - Acute respiratory failure with hypoxia
[2020-12-22] MEDS: PIPERACILLIN/TAZOBACTAM 3.375 GM in DEXTROSE 5% 100 ML IV SCH ×2 (05:25→13:01)
[2020-12-22 05:56] LABS: Basophils # (auto) 0.04 K/uL (0-0.2); Basophils % (auto) 0.6 %; Eosinophils # (auto) 0.19 K/uL (0-0.5); Eosinophils % (auto) 3.1 %; Hematocrit (blood only) 42.2 % (42-52); Hemoglobin 13.4 g/dL (14.0-18.0); Immature Granulocytes # (auto) 0.01 K/uL (0.00-0.02); Immature Granulocytes % (auto) 0.2 %; Lymphocytes # (auto) 1.09 K/uL (1.2-3.4); Lymphocytes % (auto) 17.7 %; Mean Corpuscular Hemoglobin 30.9 pg (25-34); Mean Corpuscular Hgb Conc 31.8 g/dL (32-36); Mean Corpuscular Volume 97.2 fL (80-100); Mean Platelet Volume 10.2 fL (7.4-10.4); Monocytes # (auto) 0.69 K/uL (0.11-0.59); Monocytes % (auto) 11.2 %; Neutrophils # (auto) 4.15 K/uL (1.4-6.5); Neutrophils % (auto) 67.2 %; Platelet Count 292 K/uL (130-400); RDW Coefficient of Variation 14.3 % (11.5-14.5); RDW Standard Deviation 51.5 fL (36.4-46.3); Red Blood Count 4.34 M/uL (4.7-6.1); White Blood Count 6.17 K/uL (4.8-10.8)
[2020-12-22 06:24] LABS: BUN Creatinine Ratio 12.4 (10-20); Calcium 8.8 mg/dl (8.5-10.1); Creatinine Clr Calc Pharmacy 79.8 ml/min; Est GFR (African American) 130.2 ml/min; Est GFR (Non-African American) 112.3 ml/min; Potassium 3.8 mmol/L (3.5-5.1)
[2020-12-22] MEDS: IPRATROPIUM BROMIDE HFA INHALER INH SCH ×2 (08:09→20:35)
[2020-12-22] MEDS: ALBUTEROL HFA 8 GM INHALER INH SCH ×2 (08:09→20:35)
[2020-12-22] MEDS: FEXOFENADINE HCL 180 MG TAB PO SCH (08:27)
[2020-12-22] MEDS: TRIAMCINOLONE ACET NASAL SPRAY 10.8ML BTL SCH (08:27)
[2020-12-22] MEDS: AZITHROMYCIN 500 MG in DEXTROSE 5% 250 ML IV SCH (09:19)
--- NOTE | 2020-12-22 09:52 | Hospitalist Progress Note ---
Date of Service December 22, 2020 Assessment & Plan (1) Aspiration pneumonia: Plan: Oswaldo Reyes is a 35-year-old male with a past medical history of esophageal stricture, trisomy-21, allergic rhinitis, gastritis and prior esophageal reconstruction presenting after retching and development of a cough. Acute Hypoxic Respiratory Failure due to Aspiration Pneumonia Sepsis in setting of aspiration pneumonia - CXR with bilateral opacities which have progressed from previous and interstitial thickening, favoring an infectious process - Procal and lactate normal - Biofire negative - White count improving today - Consulted pulmonology considering complex history. - Continue abx, likely aspiration (azithro for 3 days, other antibiotics for 7-10) - Can transition to PO - Ordered urine legionella antigen and mycoplasma pneumonia IgM --both pending - Continue Azithromycin added yesterday per pulm--switch to oral dose (total 3 days -- today is 2/3) - Will DC Zosyn in favor of Augmentin for oral treatment per pulmonary recs (total of 7-10 days, today is day 3) - Aspiration precautions - Continue oxygen supplementation, wean as able - Flutter valve and incentive spirometry per pulm recs - Speech therapy consulted last visit - recommend GI consult - consult added, see below - Speech this admission with no further recs, no need for intervention Allergic Rhinitis - Continue fexofenadine - Continue home Combivent History of Esophageal Stricture with Esophageal Reconstruction - Patient previously seen by GI at [facility] - Ongoing retching/nausea and questionable vomiting - Consult [facility] GI to evaluate for possible esophageal issues at this time - current pneumonia episode may be related to either a stricture or stenosis with aspiration, or gastroesophageal reflux with aspiration. - New tracheoesophageal or broncho esophageal fistula seems very unlikely - No GI intervention is planned at this time. - The head of bed should be elevated at 45 degrees at all times, Oswaldo should not be supine. Code: FULL CODE Diet: Regular, easy to chew DVT: SCD's Dispo: Medsurg (2) Allergic rhinitis: (3) Bronchostenosis: (4) Hypoxia: (5) Esophageal stricture: Admission and Anticipated Discharge Date Admission Date: December 20, 2020 Supervising Physician Co-Signing Physician Notes Resident Physician Supervision Note: I independently interviewed and examined the patient and verified the garner history and physical, reviewed labs and image studies and agree with resident Dr. Phan findings and care plan. Subjective Patient seen at bedside this AM with father in the room.. Both report improved breathing and that patient is feeling much better than upon arrival. Deny fever, chills, SOB, CP, n/v. Review of Systems Review of Systems: All systems reviewed & are unremarkable except as noted in Subjective Physical Exam Physical Exam: GENERAL: WD/WN. NAD. CHEST/LUNGS: CTAB A/P. No crackles, wheezes, rales, rhonchi. HEART: RRR. No m/g/r. EXTREMITIES: No cyanosis, no clubbing, no edema SKIN: Warm and dry. No rashes or lesions. Results & Data Results & Data ([facility]) Vital Signs (Past 12 Hours) Vital Signs Temp Pulse Pulse Resp BP Pulse Ox 12/22/20 08:10 56 L 20 91 12/22/20 08:00 36.8 C 60 22 102/70 90 12/22/20 04:00 36.7 C 55 L 17 107/67 93 12/22/20 00:00 36.9 C 53 L 15 107/67 95 12/21/20 23:59 53 L Resident Activity Tracking Resident Involvement: Resident Care Provided Care Provided: Adult Hospital Medicine (1) Aspiration pneumonia Aspiration pneumonia type: unspecified Laterality: bilateral Lung location: lower lobe of lung Qualified Code(s): J69.0 - Pneumonitis due to inhalation of food and vomit
--- NOTE | 2020-12-22 11:44 | Pulmonology Progress Note ---
Date of Service December 22, 2020 Assessment & Plan (1) Acute respiratory failure with hypoxia: (2) Multifocal pneumonia: (3) Aspiration pneumonia: Aspiration pneumonia type: unspecified Laterality: bilateral Lung location: lower lobe of lung Qualified Code(s): J69.0 - Pneumonitis due to inhalation of food and vomit Plan: 12/19/2020 CT chest personally reviewed: Diffuse patchy groundglass opacities appreciated bilaterally especially in the right upper lobe left lower lobe Left hemithorax shows herniation of the enteric structures likely related to pull-through procedure status post esophagectomy No mediastinal lymphadenopathy Chest x-ray 12/17/2020 personally reviewed: Worsening of the bilateral opacities especially in the hilar region --Acute hypoxic respiratory failure Secondary to multilobar pneumonia Likely aspiration Procalcitonin 0.23 Respiratory viral panel negative COVID-19 PCR negative x2 Continue with antibiotics Continue with aspiration precautions plan --History of bronchostenosis 2012 S/p dilatation, no stent was placed at [facility] No complications since then Plan: Add incentive spirometry to the flutter valve with the patient is using Complete azithromycin course for 3 days Continue with other antibiotics for total of 7-10 days Can be transition to p.o. Continue with O2 supplementation to keep oxygen saturation greater than 90% Because of intellectual disability and the anatomical issues that the patient has he will always be at high risk for aspiration No further recommendations from pulmonary perspective. We will sign off. Please call directly with any questions Please note the above document was generated using voice recognition software. It may contain grammatical, syntax or spelling errors.Any formal questions or concerns about the content, text or information contained within the body of this dictation should be directly addressed to the provider for clarification. Admission and Anticipated Discharge Date Admission Date: December 20, 2020 Subjective Patient seen and examined at bedside. No acute distress. No events overnight. Patient's father was in the room during examination Patient is a poor historian but does answer simple questions Says that he is feeling good. No nausea or vomiting right now No fever or chills. Has been using the flutter valve. Review of Systems Review of Systems: All systems reviewed & are unremarkable except as noted in Subjective Physical Exam Physical Exam: Constitutional: No acute distress HEENT: EOMI, PERRLA Respiratory system: Decreased air entry bilaterally, no wheeze, no rhonchi, positive crackles bilaterally more on the left side CVS: S1-S2 positive, no murmurs or gallops, postoperative changes appreciated on the left anterior chest Abdomen: Soft, nontender, nondistended, positive bowel sounds x4 Extremities: +2 pulses bilaterally radialis/ dorsalis pedis, no cyanosis, no edema Neuro: Awake alert oriented x3 Psych: Normal mood and affect G/U: No Johns Skin: no rashes, warm and dry Lymphatic: no cervical or axillary lymphadenopathy Results & Data Results & Data ([facility]) Vital Signs (Past 12 Hours) Vital Signs Temp Pulse Pulse Resp BP Pulse Ox 12/22/20 08:10 56 L 20 91 12/22/20 08:00 36.8 C 60 22 102/70 90 12/22/20 04:00 36.7 C 55 L 17 107/67 93 12/22/20 00:00 36.9 C 53 L 15 107/67 95 12/21/20 23:59 53 L 12/22/20 05:42 12/22/20 05:42 PG Care Time/CCT Total # of Minutes Spent Total Time Spent with Patient: Total time spent is greater than 50% in coordination of care (as documented) at patient's floor/unit and/or counseling patient: [place] [address] Subseq Hosp Care Lvl 2 Patient Type Established Diagnoses Acute respiratory failure with hypoxia J96.01 Multifocal pneumonia J18.9 Aspiration pneumonia J69.0 Aspiration pneumonia type: unspecified Laterality: bilateral Lung location: lower lobe of lung
--- NOTE | 2020-12-22 15:26 | Gastroenterology Progress Note ---
Date of Service December 22, 2020 Assessment & Plan (1) Aspiration pneumonia: (2) History of esophageal surgery: (3) GERD with stricture: Plan: Over the past 24 hours Mr. Reyes has been stable on a solid food diet, without symptoms or signs of oropharngeal or esophageal dysphagia or obstruction, or episodes of vomiting or regurgitation. No GI intervention is indicated at this time. We will discontinue coverage and see Mr. Reyes again as requested by attending physicians. Admission and Anticipated Discharge Date Admission Date: December 20, 2020 Subjective Mr. Reyes seen this afternoon in presence of his father after lunch. He states that he had eggs and sausage for breakfast, and roast potatoes with st ring beans at lunch, without oropharyngeal or esophageal dysphagia, food impaction, regurgitation or vomiting. Review of Systems Review of Systems: All systems reviewed & are unremarkable except as noted in HPI & below Physical Exam Constitutional: WD/WN, vitals as above Gastrointestinal (Abdomen): normal bowel sounds, soft, nontender, no hepatosplenomegaly Results & Data ([facility]) Vital Signs (Past 12 Hours) Vital Signs Temp Pulse Resp BP Pulse Ox 12/22/20 13:05 36.4 C L 57 L 22 104/55 L 95 12/22/20 08:10 56 L 20 91 12/22/20 08:00 36.8 C 60 22 102/70 90 12/22/20 04:00 36.7 C 55 L 17 107/67 93 Laboratory Results Laboratory Results WBC 6.17 K/uL (4.8-10.8) 12/22/20 05:42 RBC 4.34 M/uL (4.7-6.1) L 12/22/20 05:42 Hgb 13.4 g/dL (14.0-18.0) L 12/22/20 05:42 Hct 42.2 % (42-52) 12/22/20 05:42 MCV 97.2 fL (80-100) 12/22/20 05:42 MCH 30.9 pg (25-34) 12/22/20 05:42 MCHC 31.8 g/dL (32-36) L 12/22/20 05:42 RDW Std Deviation 51.5 fL (36.4-46.3) H 12/22/20 05:42 RDW Coeff of Jorge 14.3 % (11.5-14.5) 12/22/20 05:42 Plt Count 292 K/uL (130-400) 12/22/20 05:42 MPV 10.2 fL (7.4-10.4) 12/22/20 05:42 Immature Gran % (Auto) 0.2 % 12/22/20 05:42 Neut % (Auto) 67.2 % 12/22/20 05:42 Lymph % (Auto) 17.7 % 12/22/20 05:42 [place] % (Auto) 11.2 % 12/22/20 05:42 Eos % (Auto) 3.1 % 12/22/20 05:42 Baso % (Auto) 0.6 % 12/22/20 05:42 Neut # (Auto) 4.15 K/uL (1.4-6.5) 12/22/20 05:42 Lymph # (Auto) 1.09 K/uL (1.2-3.4) L 12/22/20 05:42 [place] # (Auto) 0.69 K/uL (0.11-0.59) H 12/22/20 05:42 Eos # (Auto) 0.19 K/uL (0-0.5) 12/22/20 05:42 Baso # (Auto) 0.04 K/uL (0-0.2) 12/22/20 05:42 Immature Gran # (Auto) 0.01 K/uL (0.00-0.02) 12/22/20 05:42 Sodium 140 mmol/L (136-145) 12/22/20 05:42 Potassium 3.8 mmol/L (3.5-5.1) 12/22/20 05:42 Chloride 102 mmol/L (98-107) 12/22/20 05:42 Carbon Dioxide 34 mmol/L (21-32) H 12/22/20 05:42 Anion Gap 4.0 (3-11) 12/22/20 05:42 BUN 11 mg/dl (7-18) D 12/22/20 05:42 Creatinine 0.86 mg/dl (0.6-1.4) 12/22/20 05:42 Est Cr Clr Drug Dosing 79.8 ml/min 12/22/20 05:42 Est GFR ( Amer) 130.2 ml/min 12/22/20 05:42 Est GFR (Non-Af Amer) 112.3 ml/min 12/22/20 05:42 BUN/Creatinine Ratio 12.4 (10-20) 12/22/20 05:42 Glucose 100 mg/dl (70-99) H 12/22/20 05:42 Lactate 1.7 mmol/L (0.4-2.0) 12/20/20 15:10 Calcium 8.8 mg/dl (8.5-10.1) 12/22/20 05:42 Magnesium 2.1 mg/dl (1.8-2.4) 12/20/20 15:10 Total Bilirubin 0.2 mg/dl (0.2-1) 12/20/20 15:10 AST 15 U/L (15-37) 12/20/20 15:10 ALT 25 U/L (12-78) 12/20/20 15:10 Alkaline Phosphatase 78 U/L (45-117) 12/20/20 15:10 Troponin I < 0.015 ng/ml (0-0.045) 12/20/20 15:10 NT-Pro-B Natriuret Pep 291 pg/ml (0-450) 12/21/20 09:49 Total Protein 7.3 gm/dl (6.4-8.2) 12/20/20 15:10 Albumin 3.0 gm/dl (3.4-5.0) L 12/20/20 15:10 Globulin 4.3 gm/dl (2.5-4.0) H 12/20/20 15:10 Albumin/Globulin Ratio 0.7 (0.9-2) L 12/20/20 15:10 Procalcitonin 0.18 ng/ml (0-0.5) 12/20/20 15:10 Urine Color Yellow 12/20/20 17:16 Urine Appearance Clear (Clear) 12/20/20 17:16 Urine pH 6.0 (4.5-7.5) 12/20/20 17:16 Ur Specific [place] 1.008 (1.000-1.030) 12/20/20 17:16 Urine Protein Negative (Negative) 12/20/20 17:16 Urine Glucose (UA) Negative (Negative) 12/20/20 17:16 Urine Ketones Negative (Negative) 12/20/20 17:16 Urine Blood Negative (Negative) 12/20/20 17:16 Urine Nitrite Negative (Negative) 12/20/20 17:16 Urine Bilirubin Negative (Negative) 12/20/20 17:16 Urine Urobilinogen Negative (Negative) 12/20/20 17:16 Ur Leukocyte Esterase Negative (Negative) 12/20/20 17:16 Nasal Screen MRSA (PCR) Negative (Negative) 12/20/20 20:03 Adenovirus (PCR) Not Detected (NotDetected) 12/20/20 15:03 B. pertussis DNA (PCR) Not Detected (NotDetected) 12/20/20 15:03 B.parapertussis DNA PCR Not Detected (NotDetected) 12/20/20 15:03 C. pneumoniae DNA (PCR) Not Detected (NotDetected) 12/20/20 15:03 Coronavirus OC43 (PCR) Not Detected (NotDetected) 12/20/20 15:03 Coronavirus HKU1 (PCR) Not Detected (NotDetected) 12/20/20 15:03 Coronavirus 229E (PCR) Not Detected (NotDetected) 12/20/20 15:03 COVID-19 Eval Order RESPNP at [facility] 12/20/20 15:03 SARS-CoV-2 (PCR) Not Detected (NotDetected) 12/20/20 15:03 Coronavirus NL63 (PCR) Not Detected (NotDetected) 12/20/20 15:03 Human Metapneumovir PCR Not Detected (NotDetected) 12/20/20 15:03 Influenza Type A (PCR) Not Detected (NotDetected) 12/20/20 15:03 Influenza Type B (PCR) Not Detected (NotDetected) 12/20/20 15:03 M. pneumoniae (PCR) Not Detected (NotDetected) 12/20/20 15:03 Parainfluenza 1 (PCR) Not Detected (NotDetected) 12/20/20 15:03 Parainfluenza 2 (PCR) Not Detected (NotDetected) 12/20/20 15:03 Parainfluenza 3 (PCR) Not Detected (NotDetected) 12/20/20 15:03 Parainfluenza 4 (PCR) Not Detected (NotDetected) 12/20/20 15:03 RSV (PCR) Not Detected (NotDetected) 12/20/20 15:03 Entero/Rhino (PCR) Not Detected (NotDetected) 12/20/20 15:03 Impressions Chest X-Ray 12/20/20 15:11 XR chest 1V portable CLINICAL HISTORY: Sepsis. COMPARISON STUDY: Chest CT and chest radiograph December 19, 2020. FINDINGS: Esophagectomy with gastric pull up is better depicted on chest CT. Cardiomediastinal silhouette is stable. There is a small left pleural effusion. Bilateral airspace opacities and interstitial thickening have progressed since prior examination. IMPRESSION: 1. Progression of bilateral airspace opacities and interstitial thickening. The findings favor an infectious process. Superimposed pulmonary edema cannot be excluded. 2. Small left pleural effusion. 3. Status post esophagectomy with gastric pull-up, better depicted on prior chest CT. ACT 112: Negative or not required by law. Electronically signed by: Manuel Reyez M.D. 12/20/2020 4:13 PM (1) Aspiration pneumonia Aspiration pneumonia type: unspecified Laterality: bilateral Lung location: lower lobe of lung Qualified Code(s): J69.0 - Pneumonitis due to inhalation of food and vomit
[2020-12-22] MEDS: AMOXICILLIN/CLAVULANATE 875 MG TAB PO SCH (17:37)
[2020-12-23 06:15] LABS: Basophils # (auto) 0.07 K/uL (0-0.2); Basophils % (auto) 1.1 %; Eosinophils # (auto) 0.22 K/uL (0-0.5); Eosinophils % (auto) 3.5 %; Hematocrit (blood only) 44.9 % (42-52); Hemoglobin 15.1 g/dL (14.0-18.0); Immature Granulocytes # (auto) 0.01 K/uL (0.00-0.02); Immature Granulocytes % (auto) 0.2 %; Lymphocytes # (auto) 1.45 K/uL (1.2-3.4); Lymphocytes % (auto) 22.9 %; Mean Corpuscular Hemoglobin 31.3 pg (25-34); Mean Corpuscular Hgb Conc 33.6 g/dL (32-36); Mean Corpuscular Volume 93.2 fL (80-100); Mean Platelet Volume 10.2 fL (7.4-10.4); Monocytes # (auto) 0.85 K/uL (0.11-0.59); Monocytes % (auto) 13.4 %; Neutrophils # (auto) 3.74 K/uL (1.4-6.5); Neutrophils % (auto) 58.9 %; Platelet Count 355 K/uL (130-400); RDW Coefficient of Variation 13.9 % (11.5-14.5); RDW Standard Deviation 47.3 fL (36.4-46.3); Red Blood Count 4.82 M/uL (4.7-6.1); White Blood Count 6.34 K/uL (4.8-10.8)
[2020-12-23 06:47] LABS: BUN Creatinine Ratio 10.7 (10-20); Calcium 9.3 mg/dl (8.5-10.1); Creatinine Clr Calc Pharmacy 58.7 ml/min; Est GFR (African American) 103.7 ml/min; Est GFR (Non-African American) 89.5 ml/min
[2020-12-23] MEDS: ALBUTEROL HFA 8 GM INHALER INH SCH ×2 (06:59→19:45)
[2020-12-23] MEDS: IPRATROPIUM BROMIDE HFA INHALER INH SCH ×2 (06:59→19:45)
[2020-12-23] MEDS: FEXOFENADINE HCL 180 MG TAB PO SCH (07:56)
[2020-12-23] MEDS: AMOXICILLIN/CLAVULANATE 875 MG TAB PO SCH ×2 (07:56→17:18)
[2020-12-23] MEDS: AZITHROMYCIN 250 MG TAB PO SCH (07:56)
[2020-12-23] MEDS: TRIAMCINOLONE ACET NASAL SPRAY 10.8ML BTL SCH (11:54)
--- NOTE | 2020-12-23 14:48 | Hospitalist Progress Note ---
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 Acute Hypoxic Respiratory Failure due to Aspiration Pneumonia Sepsis in setting of aspiration pneumonia - CXR with bilateral opacities which have progressed from previous and interstitial thickening, favoring an infectious process - Procal and lactate normal - Biofire negative - White count improving today - Consulted pulmonology considering complex history. - Continue abx, likely aspiration (azithro for 3 days, other antibiotics for 7-10) - Can transition to PO - Ordered urine legionella antigen pending - Mycoplasma pneumoniae IgM negative 12/19 -- reordered by pulm 12/21 pending - DC'd Zosyn 12/22 - Continue Azithromycin added yesterday per pulm--switch to oral dose (total 3 days) -- treatment completed 12/23 - Continue Augmentin for total treatment of 7-10 days (today is day 4) -- end date 12/26-10/29 depending on duration - Aspiration precautions - Continue oxygen supplementation, wean as able - Flutter valve and incentive spirometry per pulm recs - Speech therapy consulted last visit - recommend GI consult - consult added, see below - Speech this admission with no further recs, no need for intervention Allergic Rhinitis - Continue fexofenadine - Continue home Combivent History of Esophageal Stricture with Esophageal Reconstruction - Patient previously seen by GI at [place] - Ongoing retching/nausea and questionable vomiting - Consult [facility] GI to evaluate for possible esophageal issues at this time - current pneumonia episode may be related to either a stricture or stenosis with aspiration, or gastroesophageal reflux with aspiration. - New tracheoesophageal or broncho esophageal fistula seems very unlikely - No GI intervention is planned at this time. - The head of bed should be elevated at 45 degrees at all times, Oswaldo should not be supine. Code: FULL CODE Diet: Regular, easy to chew DVT: SCD's Dispo: Medsurg, DC when oxygenation 90% or above on RA per pulm recs (2) Allergic rhinitis: (3) Bronchostenosis: (4) Hypoxia: (5) Esophageal stricture: Admission and Anticipated Discharge Date Admission Date: December 20, 2020 Supervising Physician Co-Signing Physician Notes Resident Physician Supervision Note: I independently interviewed and examined the patient and verified the garner history and physical, reviewed labs and image studies and agree with resident Dr. Phan findings and care plan. Subjective Seen this AM. Sitting up in bed having breakfast. No reported issues. He and his father both feel he is doing better. Still requiring 1L NC to maintain 90% saturation. Regardless, denies SOB even on RA. Review of Systems Review of Systems: Denies fever, chills, naisea, vomiting, cough, SOB, abd pain, diarrhea. Physical Exam Physical Exam: GENERAL: WD/WN. NAD. CHEST/LUNGS: CTAB A/P. No crackles, wheezes, rales, rhonchi. HEART: RRR. No m/g/r. EXTREMITIES: No cyanosis, no clubbing, no edema SKIN: Warm and dry. No rashes or lesions. Results & Data Results & Data ([facility]) Vital Signs (Past 12 Hours) Vital Signs Temp Pulse Resp BP Pulse Ox 12/23/20 07:00 64 16 90 12/23/20 06:55 36.8 C 62 16 98/62 L 92 Resident Activity Tracking Resident Involvement: Resident Care Provided Care Provided: Adult Hospital Medicine (1) Aspiration pneumonia Aspiration pneumonia type: unspecified Laterality: bilateral Lung location: lower lobe of lung Qualified Code(s): J69.0 - Pneumonitis due to inhalation of food and vomit
[2020-12-24] MEDS: AMOXICILLIN/CLAVULANATE 875 MG TAB PO SCH (07:15)
[2020-12-24] MEDS: AZITHROMYCIN 250 MG TAB PO SCH (07:15)
[2020-12-24] MEDS: TRIAMCINOLONE ACET NASAL SPRAY 10.8ML BTL SCH (07:15)
[2020-12-24] MEDS: FEXOFENADINE HCL 180 MG TAB PO SCH (07:16)
[2020-12-24] MEDS: ALBUTEROL HFA 8 GM INHALER INH SCH (07:40)
[2020-12-24] MEDS: IPRATROPIUM BROMIDE HFA INHALER INH SCH (07:40)
[2020-12-24 09:05] LABS: Basophils # (auto) 0.07 K/uL (0-0.2); Basophils % (auto) 1.4 %; Eosinophils # (auto) 0.16 K/uL (0-0.5); Eosinophils % (auto) 3.1 %; Hematocrit (blood only) 49.7 % (42-52); Hemoglobin 16.5 g/dL (14.0-18.0); Immature Granulocytes # (auto) 0.05 K/uL (0.00-0.02); Lymphocytes # (auto) 1.41 K/uL (1.2-3.4); Lymphocytes % (auto) 27.6 %; Mean Corpuscular Hgb Conc 33.2 g/dL (32-36); Mean Corpuscular Volume 93.4 fL (80-100); Mean Platelet Volume 10.2 fL (7.4-10.4); Monocytes # (auto) 0.71 K/uL (0.11-0.59); Monocytes % (auto) 13.9 %; Neutrophils # (auto) 2.71 K/uL (1.4-6.5); Platelet Count 378 K/uL (130-400); RDW Coefficient of Variation 13.9 % (11.5-14.5); RDW Standard Deviation 47.7 fL (36.4-46.3); Red Blood Count 5.32 M/uL (4.7-6.1); White Blood Count 5.11 K/uL (4.8-10.8)
[2020-12-24 09:33] LABS: BUN Creatinine Ratio 18.1 (10-20); Calcium 9.4 mg/dl (8.5-10.1); Creatinine Clr Calc Pharmacy 49.9 ml/min; Est GFR (African American) 85.1 ml/min; Est GFR (Non-African American) 73.4 ml/min; Potassium 3.9 mmol/L (3.5-5.1)
--- NOTE | 2020-12-24 11:59 | Discharge Summary ---
Date of Service December 24, 2020 Admission HPI Per Admitting Provider Oswaldo Reyes is a 35-year-old male with a past medical history of esophageal stricture, trisomy 21, allergic rhinitis, gastritis and prior esophageal reconstruction presenting with fever, chills, cough, nausea, and hypoxia. He was admitted to [facility] on 12/19 in the morning due to cough preceded by nausea and likely aspiration. He remained hemodynamically stable in the hospital and throughout the day had b een saturating well on room air. He was also evaluated by pulmonology who recommended holding off on antibiotics due to patient not showing any convincing signs of infection at the time and remaining stable throughout his admission. As such, he was discharged home with instructions to return if he did deteriorate. The patient's father mentions that the patient was initially doing well at home but this afternoon he seemed lethargic, was coughing more, and had increased work of breathing. Additionally, father states patient was retching, but denies him having vomited anything. Per the father, they checked pulse ox at home and found it to be at 50%, at which point they decided to return to the hospital. ED course: Patient was found to have an oxygen saturation of 70% on room air. He was also febrile and had low blood pressure. He was subsequently placed on oxygen mask with good response and saturations up to high 90s. Repeat CXR today reveals progression of bilateral airspace opacities and interstitial thickening, favoring an infectious process. Given NSS 1 L bolus x1 as well as Zosyn 4.5 g IV x1. Labs show a WBC of 12.87, which is higher than 11.51 yesterday, stable hemoglobin. All electrolytes normal, except for mildly decreased calcium. Troponin is negative and procalcitonin remains negative as well. Lactate was 1.7. Blood cultures were ordered and are pending. Admission Exam Per Admitting Provider GENERAL: A&Ox3. NAD. NECK: No JVD. No lymphadenopathy. CHEST/LUNGS: CTAB A/P. No crackles, wheezes, rales, rhonchi. HEART: RRR. No m/g/r. ABDOMEN: NT/ND, soft. BS+ x4. EXTREMITIES: No cyanosis, no clubbing, no edema SKIN: Warm and dry. No rashes or lesions. PSYCHIATRIC: Euthymic affect, no SI, no pressured speech, no hallucinations NEUROLOGIC: No FND. CN II-XII grossly intact. Principal Diagnosis Acute hypoxic respiratory failure due to aspiration pneumonia Discharge Exam GENERAL: No acute distress. Well developed and well nourished. Sitting in chair at bedside. Vital signs reviewed as above. EYES: EOMI. Anicteric sclerae. HENT: Moist mucous membranes. RESPIRATORY: Clear to auscultation bilaterally. No wheezing, rales, or rhonchi. CARDIOVASCULAR: Regular rate and rhythm. No murmurs. ABDOMEN: Soft, non-tender and non-distended. Normal bowel sounds. EXTREMITIES: No edema. Non-tender. SKIN: Warm, dry. No rashes or lesions. NEUROLOGIC: No focal neurological deficits. PSYCHIATRIC: Cooperative. Appropriate mood and affect. 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 Acute Hypoxic Respiratory Failure due to Aspiration Pneumonia Sepsis in setting of aspiration pneumonia - CXR 12/20 with bilateral opacities which have progressed from previous and interstitial thickening, favoring an infectious process - Procal and lactate normal - Biofire negative - WBC improved during admission; 12.87 on admission --> 5.11 on discharge - Consulted pulmonology considering complex history. Assisted with abx management - Ordered urine legionella antigen, not detected - Mycoplasma pneumoniae IgM negative 12/19 -- reordered by pulm 12/21, pending - DC'd Zosyn 12/22. - Azithromycin added 12/22 per pulm--switch to oral dose (total 3 days) -- treatment to be completed 12/25 - Continue Augmentin for total treatment of 10 days -- treatment to be completed on 12/29 - Aspiration precautions - Encourage flutter valve - Received supplemental O2 via NC prn, was able to maintain O2 sat > 90% on RA for > 18 hours prior to discharge - Speech therapy consulted last visit - recommend GI consult - consult added, see below - Speech this admission with no further recs, no need for intervention Allergic Rhinitis - Continue fexofenadine - Continue home Combivent History of Esophageal Stricture with Esophageal Reconstruction - Patient previously seen by GI at [place] - Ongoing retching/nausea and questionable vomiting - Consult [facility] GI to evaluate for possible esophageal issues at this time - current pneumonia episode may be related to either a stricture or stenosis with aspiration, or gastroesophageal reflux with aspiration. - New tracheoesophageal or broncho esophageal fistula seems very unlikely - No GI intervention is planned at this time. - The head of bed should be elevated at 45 degrees at all times, Oswaldo should not be supine. (2) Allergic rhinitis: (3) Bronchostenosis: (4) Hypoxia: (5) Esophageal stricture: Total Time Total Time Spent Total Time Spent (In Minutes): <30 Discharge Plan Discharge Items Patient Disposition: Home - Self-Care Reason For Visit: LABORED BREATHING,FEVER,COUGH,NAUSEA Discharge Diagnosis: Aspiration pneumonia Condition on Discharge: Good Activity: Per Instructions section Non-emergency contact: Primary Care Provider Call non-emergency contact if: you have any medication questions and your symptoms worsen Follow-up/Referrals: Tay Billings Jr, [Primary Care Provider] - Diet: Regular Addtl Attending Provider Instructions: Oswaldo was admitted to [facility] due to fever, cough, nausea, and difficulty breathing at home. He was found to have likely aspiration pneumonia. He was treated with IV antibiotics initially and was then transitioned to oral antibiotics as his condition improved. Oswaldo will be discharged home with plans to finish treatment with two different antibiotics as follows: 1. Azithromycin 500 mg once in the morning until 12/25/20. 2. Augmentin 875mg orally twice daily until 12/29/2020. We recommend follow-up with Oswaldo's primary care provider within the next week to ensure full resolution of the infection. If he develops worsening shortness of breath, worsening cough, fever, chills or any other concerning symptoms please return to the hospital for reevaluation. Pending Studies at Discharge: No Stand-Alone Forms: [employer], Smoking Cessation Medications and DC Order Prescriptions: New amoxicillin-pot clavulanate [Augmentin] 875-125 mg Tablet 1 tab PO BIDM 6 Days Qty: 12 RF: 0 azithromycin 250 mg Tablet 500 mg PO QAM 1 Days Qty: 2 RF: 0 Continued fexofenadine [Angelica Allergy] 180 mg tablet 180 mg PO DAILY RF: 0 triamcinolone acetonide 55 mcg aerosol,spray 2 spray intranasal DAILY RF: 0 econazole 1 % cream 1 applic TOPICAL BID RF: 0 Combivent Respimat 20-100 mcg/actuation mist 1 puff INHALATION BID RF: 0 multivitamin Tablet 1 tab PO DAILY RF: 0 Discharge Orders: Discharge Order (Routine); Ordered 12/24/20 Ordered By: Hilary Martinez/Other Patient Handouts: What Is Pneumonia?, Treating Pneumonia Admission Data Admit Date/Time: 12/20/20 15:59 Attending Provider: Jez Khan Admit Provider: Chapin Kumar Primary Care Provider: Tay Billings Jr Other Providers: Anuel Moore ; Cyn Phelps ; Christopher Gonzalez Other Interventions: Discharge Summary Assessment (RN) Last Done: 12/24/20 11:21 Supervising Physician Co-Signing Physician Notes I personally examined the patient and verified all garner points of history and exam, discussed case, and agree with decision making with Dr Segundo. Feeling better. Feels like he is back to his regular self. No dyspnea on exertion. Father notes that he looks like his regular self as well. Both feel comfortable with him going home. Tolerating Augmentin p.o. just fine. Vitals noted, in general he is awake and alert pleasant no distress. HEENT normocephalic atraumatic mucous membranes moist. Breathing unlabored no accessory muscle use good effort no conversational dyspnea. Skin without rashes, pallor, icterus. Neuro without focal deficits. Aspiration pneumonia with hypoxianow doing better, stable for home, finish out a course of antibiotics p.o. Outpatient PCP and GI follow-up. otherwise as above Resident Activity Tracking Resident Involvement: Resident Care Provided Care Provided: Adult Hospital Medicine
--- NOTE | 2020-12-24 18:34 | Billing Data ---
Date of Service December 24, 2020 Coding Level of Care Code D/C DAY MANAGEMENT <30 MINS
== END 2020-12-24 12:46 | disposition home or self-care (01) | DRG 871 ==
LOC: SUATTDRO → ED 14:38 → SUATTDRO 15:59 → 2S 15:59 → 1E 21:01 → 3N 12-22 13:21

== ENCOUNTER 2024-03-03 22:31 | Inpatient (IN) ==
[2024-03-03] MEDS: ALBUT/IPRATROP 3MG/0.5MG NEB 3 ML VIAL INH STA (22:59)
--- NOTE | 2024-03-03 23:10 | Emergency Department Note ---
Impression & Plan Acute hypoxemic respiratory failure, Bilateral pneumonia, Elevated troponin I level ED Provider Note NAME: MARCO AUSTIN AGE: 38 SEX: M : 1985 ARRIVES VIA: Walk-In INFORMANT: [Patient][, ] parents ED PROVIDER(S): [Marvin Hensley MD] CHIEF COMPLAINT: Shortness of breath, cough MEDICAL DECISION MAKING: Patient presents due to concern for shortness of breath and cough. The patient does have coarse breath sounds and associated wheezing. IV was established and blood work was obtained. Patient was placed on nonrebreather given the patient's significant hypoxia in triage at less than 70%. The patient was subsequently transitioned to high flow nasal cannula and breathing treatment is ordered along with steroids and empiric antibiotics. Patient does have a concerning history of aspiration. Patient's blood work shows a normal white count hemoglobin and platelet count. Kidney function with a creatinine 1.27. Troponin of 68 no obvious ischemic changes on EKG procalcitonin is not elevated. And her rhinovirus is positive on bio fire. The patient's chest x-ray does show bilateral pneumonia. I did convey this to the patient as well as the patient's parents at bedside. They are comfortable with current plan of care. I did speak the on-call hospital service Dr. Mendoza and the patient was admitted to the medicine service. Critical Care: I have personally spent 65 minutes of critical care time in direct management of this patient. This includes bedside care, interpretation of diagnostic studies, and testing, discussion with consultants, patient, and family members, and other require inpatient management activities. This 65 minutes is in excess of all separately billable procedures. Discussion w/ other healthcare providers: Dr. Mendoza inpatient medicine service Prior /Outside records reviewed: None Differential diagnosis: Reactive airway disease, pneumonia, pneumothorax, COPD, CHF, ACS, pulmonary embolism, musculoskeletal, GERD as well as other pathologies were considered. Diagnostics, as interpreted by me: ECG: [none] Cardiac monitoring: An order was placed for continuous cardiac monitoring. The monitor shows a rate of 125 with tachycardic and regular rhythm. [Patient was placed on pulse oximetry] Medical decision rules: [none] Imaging studies: [I informally interpreted the patient's chest x-ray shows bilateral pneumonia with formal report to follow.] [] HPI: Patient presents due to concern for respiratory difficulties. The patient had some symptoms about 2 nights ago but over the course of the following 24 hours the patient seemed to be improved however, parents were concerned as he had worsening respiratory symptoms. The patient has complained of some headache. He did receive some Tylenol earlier today. He does have a history of aspiration and a prior esophageal reconstruction that was completed around the time of his . Patient states that he does have some associated abdominal pain but is only with coughing. No reported vomiting but reportedly does have a history of aspiration. No issues with defecation or urination. No falls or trauma. The other family members have had some upper respiratory symptoms but no recent travel. PAST MEDICAL HISTORY: [See Below] PAST SURGICAL HISTORY: [See Below] SOCIAL HISTORY: [See Below] HOME MEDICATIONS: [See Below] ALLERGIES: [See Below] VITALS: [See Below] PHYSICAL EXAMINATION: GENERAL: Mildly ill but nontoxic in appearance, tachypnea noted. Facies consistent with trisomy 21. EYE EXAM: Normal conjunctiva. PERRL, no anisocoria and EOM's grossly intact w/o pain. OROPHARYNX: Moist mucus membranes, grossly normal dentition. NECK: Trachea midline, no stridor. LUNGS: Wheezes and crackles throughout most prominent in the left chest, tachypnea HEART: Tachycardic and regular, no MRG. ABDOMEN: Abdomen soft, scars noted mild epigastric discomfort without lower abdominal pain,, no masses, no rebound or guarding. BACK: No CVA TTP. SKIN: No rashes and no bruising. UPPER EXTREMITIES: Upper extremities are grossly normal. LOWER EXTREMITIES: Grossly normal, no edema. Negative Homans' sign bilaterally. NEURO EXAM: A&O x3, cranial nerves II-XII grossly intact, normal speech, moves all 4 extremities. 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) Aspiration pneumonia (Acute) History of esophageal surgery reconstructed esophagus GERD with stricture Multifocal pneumonia (Acute) Acute respiratory failure with hypoxia (Acute) Respiratory failure (Acute) Allergic rhinitis Dehydration (Acute) Abdominal pain (Acute) Medical History Bronchostenosis DVT prophylaxis Hypoxia Sepsis Pneumonia Esophageal stricture reconstructed esophagus Aspiration into airway Trisomy 21 Social History Smoking Status: Never smoker Hx Alcohol Use: No Hx Substance Use: No Preferred Language: Barbadian Communication Ability: Effective Communication Ability Comment: Father at bedside Group Segment Consultant Required: No Beliefs That Will Affect Care: None marital status: Single Current Living Situation: Family Feels Safe at Home: Yes Assistive Devices: None Allergies Allergies Allergy/AdvReac Type Severity Reaction Status Date / Time gluten Allergy Severe Abdominal Verified 04/08/21 10:45 Pain lamotrigine Allergy Unknown Verified 11/28/21 16:23 Sulfa (Sulfonamide Allergy Unknown Verified 11/28/21 16:23 Antibiotics) Home Meds Home Medications Medication Instructions Recorded Confirmed fexofenadine 180 mg tablet 180 mg PO DAILY 12/13/20 03/03/24 (Angelica Allergy) multivitamin 1 tab PO DAILY 12/20/20 03/03/24 ipratropium 20 mcg-albuterol 100 1 puff inhalation BID 03/03/24 03/03/24 mcg/actuation mist for inhalation (Combivent Respimat) Results & Data (ED) Vital Signs Vital Signs - 24 hr 03/03/24 22:35 03/03/24 22:45 03/03/24 22:55 Temperature 36.8 C Temperature Source Temporal Artery Scan Pulse Rate 152 H 100 H 93 H Respiratory Rate 20 Respiratory Depth Normal Blood Pressure 114/69 Blood Pressure Mean 84 Pulse Oximetry 64 L 96 Oxygen Delivery Method Room Air High Flow Nasal Cannula Oxygen Flow Rate 25 Sepsis Recent Fever Within 48 Hours No Sepsis New/Unexplained Change in Mental Status No Sepsis Action Taken by Nursing No Action Required Home Medications Current Medication List: was personally reviewed by me Laboratory Data Attestation: I reviewed the patient's lab results. 03/06/24 05:20 03/06/24 05:20 Lab Results 03/03/24 03/03/24 03/03/24 Range/Units 22:44 22:55 23:45 WBC 10.54 (4.8-10.8) K/ul RBC 5.04 (4.70-6.10) M/uL Hgb 14.3 (14.0-18.0) g/dl Hct 45.0 (42.0-52.0) % MCV 89.3 (80.0-100.0) fL MCH 28.4 (25.0-34.0) pg MCHC 31.8 L (32.0-36.0) g/dL RDW Std Deviation 63.0 H (36.4-46.3) fL RDW Coeff of Jorge 19.6 H (11.5-14.5) % Plt Count 275 (130-400) K/uL MPV 9.7 (9.4-12.4) fL Immature Gran % (Auto) 0.6 % Neut % (Auto) 75.6 % Lymph % (Auto) 13.9 % Collin % (Auto) 8.1 % Eos % (Auto) 0.9 % Baso % (Auto) 0.9 % Neut # (Auto) 7.97 H (1.40-6.50) K/uL Lymph # (Auto) 1.47 (1.20-3.40) K/uL Collin # (Auto) 0.85 H (0.11-0.59) K/uL Eos # (Auto) 0.10 (0.00-0.50) K/uL Baso # (Auto) 0.09 (0.00-0.20) K/uL Immature Gran # (Auto) 0.06 (0.01-0.20) K/uL PT 11.9 (9.0-12.0) Seconds INR 1.1 (0.9-1.1) APTT 30 (21-31) Seconds PTT Ratio 1.1 Sodium 140 (136-145) mmol/L Potassium 4.3 (3.5-5.1) mmol/L Chloride 104 (98-107) mmol/L Carbon Dioxide 28 (21-32) mmol/L Anion Gap 8 (3-11) BUN 20 (6-23) mg/dl Creatinine 1.27 (0.6-1.4) mg/dl Est Cr Clr Drug Dosing 53.5 ml/min eGFR 74.16 BUN/Creatinine Ratio 15.7 (10-20) Glucose 202 H (70-99(Fasting)) mg/dl Lactate 1.6 (0.4-2.0) mmol/L Calcium 9.1 (8.6-10.3) mg/dl Total Bilirubin 0.3 (0.2-1.0) mg/dl AST 19 (13-39) U/L ALT 19 (7-52) U/L Alkaline Phosphatase 79 (34-104) U/L Troponin I High Sens 68.0 H* (0-20) pg/ml Total Protein 7.1 (6.0-8.3) gm/dl Albumin 3.8 (3.4-5.0) gm/dl Globulin 3.3 (2.5-4.0) gm/dl Albumin/Globulin Ratio 1.2 (0.9-2) Procalcitonin 0.08 (0-0.5) ng/ml Nasal Screen MRSA (PCR) Negative (Negative) Adenovirus (PCR) Not Detected (NotDetected) B. pertussis DNA (PCR) Not Detected (NotDetected) B.parapertussis DNA PCR Not Detected (NotDetected) C. pneumoniae DNA (PCR) Not Detected (NotDetected) Coronavirus OC43 (PCR) Not Detected (NotDetected) Coronavirus HKU1 (PCR) Not Detected (NotDetected) Coronavirus 229E (PCR) Not Detected (NotDetected) SARS-CoV-2 (PCR) Not Detected (NotDetected) Coronavirus NL63 (PCR) Not Detected (NotDetected) Human Metapneumovir PCR Not Detected (NotDetected) Influenza Type A (PCR) Not Detected (NotDetected) Influenza Type B (PCR) Not Detected (NotDetected) M. pneumoniae (PCR) Not Detected (NotDetected) Parainfluenza 1 (PCR) Not Detected (NotDetected) Parainfluenza 2 (PCR) Not Detected (NotDetected) Parainfluenza 3 (PCR) Not Detected (NotDetected) Parainfluenza 4 (PCR) Not Detected (NotDetected) RSV (PCR) Not Detected (NotDetected) Entero/Rhino (PCR) DETECTED A (NotDetected) Administered Medications Albuterol (Albut/Ipratrop 3mg/0.5mg Neb 3 Ml Vial) 3 ml NEB Q6R PRN; Protocol PRN Reason: Shortness Of Breath Or Wheezing Stop: 04/03/24 06:59 Last Admin: 03/07/24 09:01 Dose: 3 ml Documented By: BRANDY Fexofenadine HCl (Fexofenadine Hcl 180 Mg Tab) 180 mg PO DAILY LUPE Stop: 04/03/24 08:59 Last Admin: 03/07/24 07:56 Dose: 180 mg Documented By: Admin: 03/06/24 08:10 Dose: 180 mg Documented By: Admin: 03/05/24 08:23 Dose: 180 mg Documented By: Admin: 03/04/24 08:29 Dose: 180 mg Documented By: Ceftriaxone Sodium (Rocephin) 2,000 mg in 50 mls @ 100 mls/hr IV Q24H LUPE Stop: 03/09/24 12:59 Last Infusion: 03/07/24 13:35 Dose: Infused Documented By: Admin: 03/07/24 12:57 Dose: 100 mls/hr Documented By: Infusion: 03/06/24 13:40 Dose: Infused Documented By: Admin: 03/06/24 13:08 Dose: 100 mls/hr Documented By: Infusion: 03/05/24 14:33 Dose: Infused Documented By: Admin: 03/05/24 13:51 Dose: 100 mls/hr Documented By: Infusion: 03/04/24 15:03 Dose: Infused Documented By: Admin: 03/04/24 14:29 Dose: 100 mls/hr Documented By: Azithromycin 250 mg/ Sodium (Chloride) 252.5 mls @ 125 mls/hr IV Q24H LUPE; Protocol Stop: 03/10/24 06:59 Last Infusion: 03/07/24 10:50 Dose: Infused Documented By: Admin: 03/07/24 08:31 Dose: 125 mls/hr Documented By: Infusion: 03/06/24 11:11 Dose: Infused Documented By: Admin: 03/06/24 09:01 Dose: 125 mls/hr Documented By: Infusion: 03/05/24 08:24 Dose: Infused Documented By: Admin: 03/05/24 06:11 Dose: 125 mls/hr Documented By: SHEY Multivitamins (Multivitamin Tab) 1 tab PO DAILY LUPE Stop: 04/03/24 08:59 Last Admin: 03/07/24 07:56 Dose: 1 tab Documented By: Admin: 03/06/24 08:10 Dose: 1 tab Documented By: Admin: 03/05/24 08:23 Dose: 1 tab Documented By: Admin: 03/04/24 08:29 Dose: 1 tab Documented By: MS Discontinued Medications Albuterol (Albut/Ipratrop 3mg/0.5mg Neb 3 Ml Vial) 6 ml INH NOW STA Stop: 03/03/24 22:49 Last Admin: 03/03/24 22:59 Dose: 6 ml Documented By: DERRICK Albuterol (Albut/Ipratrop 3mg/0.5mg Neb 3 Ml Vial) 3 ml NEB Q6R LUPE; Protocol Stop: 04/03/24 06:59 Last Admin: 03/06/24 12:03 Dose: 3 ml Documented By: Admin: 03/06/24 07:24 Dose: 3 ml Documented By: Admin: 03/06/24 01:42 Dose: 3 ml Documented By: Admin: 03/05/24 19:54 Dose: 3 ml Documented By: Admin: 03/05/24 12:22 Dose: 3 ml Documented By: Admin: 03/05/24 07:16 Dose: 3 ml Documented By: Admin: 03/05/24 01:45 Dose: 3 ml Documented By: Admin: 03/04/24 19:39 Dose: 3 ml Documented By: Admin: 03/04/24 13:40 Dose: 3 ml Documented By: Admin: 03/04/24 07:50 Dose: 3 ml Documented By: NICHOL Sodium Chloride (Nss) 1,000 mls @ 999 mls/hr IV .Q1H1M ONE Stop: 03/03/24 23:48 Last Infusion: 03/03/24 23:50 Dose: Infused Documented By: Admin: 03/03/24 23:11 Dose: 999 mls/hr Documented By: PHILLIP Piperacillin Sod/Tazobactam Sod (Zosyn) 4.5 gm in 100 mls @ 200 mls/hr IV NOW ONE; Protocol Stop: 03/03/24 23:17 Last Infusion: 03/03/24 23:50 Dose: Infused Documented By: Admin: 03/03/24 23:11 Dose: 200 mls/hr Documented By: PHILLIP Sodium Chloride (Nss) 500 mls @ 999 mls/hr IV .Q31M ONE Stop: 03/04/24 00:40 Last Infusion: 03/04/24 01:50 Dose: Infused Documented By: RAD(2) Admin: 03/04/24 00:20 Dose: 999 mls/hr Documented By: SAVITA Piperacillin Sod/Tazobactam Sod (Zosyn) 4.5 gm in 100 mls @ 25 mls/hr IV Q8H LUPE; Protocol Stop: 03/09/24 03:59 Last Admin: 03/04/24 12:58 Dose: Not Given Documented By: Infusion: 03/04/24 07:49 Dose: Infused Documented By: Admin: 03/04/24 03:49 Dose: 25 mls/hr Documented By: RAD(2) Methylprednisolone 40 mg/ (Syringe) 0.64 mls @ 1.5 mls/min IV Q12H LUPE Stop: 04/03/24 08:59 Last Admin: 03/04/24 08:29 Dose: 1.5 mls/min Documented By: Azithromycin 500 mg/ Sodium (Chloride) 255 mls @ 127.5 mls/hr IV NOW STA; Protocol Stop: 03/04/24 14:53 Last Infusion: 03/04/24 17:04 Dose: Infused Documented By: Infusion: 03/04/24 15:04 Dose: 128 mls/hr Documented By: Infusion: 03/04/24 14:33 Dose: 0 mls/hr Documented By: Admin: 03/04/24 14:33 Dose: 127.5 mls/hr Documented By: Insulin Aspart (Insulin Aspart Per Unit Charge) 0 units SC ACHS LUPE Stop: 04/03/24 11:29 Last Admin: 03/05/24 17:10 Dose: Not Given Documented By: Admin: 03/05/24 12:26 Dose: Not Given Documented By: Admin: 03/05/24 08:24 Dose: Not Given Documented By: Admin: 03/04/24 21:00 Dose: Not Given Documented By: SHEY Co-signed By: [email or web address] Admin: 03/04/24 17:37 Dose: 2 units Documented By: Co-signed By: MANUEL Admin: 03/04/24 12:45 Dose: 4 units Documented By: MS Co-signed By: BOBBY Methylprednisolone (Methylprednisolone 125 Mg/2 Ml Vial) 125 mg IV NOW STA Stop: 03/03/24 22:49 Last Admin: 03/03/24 23:12 Dose: 125 mg Documented By: BS Imaging Data Radiologist's Impression: Chest/Abdomen X-ray 03/03/24 22:48 Exam(s): XR ABDOMEN, 2 views EXAM: XR Abdomen, 2 Views and XR Chest, 1 View CLINICAL HISTORY: Reason for exam: sob/hypoxia, abdominal pain w/ coughing. TECHNIQUE: Frontal view of the chest, frontal view of the abdomen/pelvis and upright or decubitus view of the abdomen. COMPARISON: 06/12/2022. . FINDINGS: Lungs: There are extensive bilateral infiltrates.. Pleural space: There are possible small bilateral pleural effusions. No pneumothorax. Heart: Heart is top normal in size.. Intraperitoneal space: No free air. Gastrointestinal tract: There is air and stool noted in the colon. No significantly distended loops of small bowel are identified.. Bones/joints: There is a scoliosis in the spine.. IMPRESSION: There are extensive bilateral infiltrates with possible small bilateral pleural effusions Unremarkable bowel gas pattern. Electronically signed by: Allen aMcario MD 03/04/24 01:14 AM Discharge Plan Visit Data Chief Complaint: Abdominal Pain Stated Complaint: CONGESTED, COUGH, ABD PAIN ED Provider: Marvin Hensley Discharge Problem: Acute hypoxemic respiratory failure, Bilateral pneumonia, Elevated troponin I level Patient Disposition: Admitted As Inpatient Discharge Instructions Interventions: ED Discharge Assessment Last Done: 03/04/24 01:10 Discharge Problem: Bilateral pneumonia Qualifiers: Pneumonia type: due to unspecified organism Lung location: unspecified part of lung Qualified Code(s): J18.9 - Pneumonia, unspecified organism
[2024-03-03] MEDS: PIPERACILLIN/TAZOBACTAM 4.5 GM/100 ML BAG IV ONE (23:11)
[2024-03-03] MEDS: SODIUM CHLORIDE 0.9% 1,000 ML IV ONE (23:11)
[2024-03-03] MEDS: methylPREDNISolone 125 MG/2 ML VIAL IV STA (23:12)
[2024-03-03 23:21] LABS: Basophils # (auto) 0.09 K/uL (0.00-0.20); Basophils % (auto) 0.9 %; Eosinophils % (auto) 0.9 %; Hemoglobin 14.3 g/dl (14.0-18.0); Immature Granulocytes # (auto) 0.06 K/uL (0.01-0.20); Immature Granulocytes % (auto) 0.6 %; Lymphocytes # (auto) 1.47 K/uL (1.20-3.40); Lymphocytes % (auto) 13.9 %; Mean Corpuscular Hemoglobin 28.4 pg (25.0-34.0); Mean Corpuscular Hgb Conc 31.8 g/dL (32.0-36.0); Mean Corpuscular Volume 89.3 fL (80.0-100.0); Mean Platelet Volume 9.7 fL (9.4-12.4); Monocytes # (auto) 0.85 K/uL (0.11-0.59); Monocytes % (auto) 8.1 %; Neutrophils # (auto) 7.97 K/uL (1.40-6.50); Neutrophils % (auto) 75.6 %; Platelet Count 275 K/uL (130-400); RDW Coefficient of Variation 19.6 % (11.5-14.5); Red Blood Count 5.04 M/uL (4.70-6.10); White Blood Count 10.54 K/ul (4.8-10.8)
[2024-03-03 23:31] LABS: Albumin Globulin Ratio 1.2 (0.9-2); Albumin Level 3.8 gm/dl (3.4-5.0); BUN Creatinine Ratio 15.7 (10-20); Bilirubin,Total 0.3 mg/dl (0.2-1.0); Calcium 9.1 mg/dl (8.6-10.3); Creatinine Clr Calc Pharmacy 53.5 ml/min; Globulin 3.3 gm/dl (2.5-4.0); Potassium 4.3 mmol/L (3.5-5.1); Total Protein 7.1 gm/dl (6.0-8.3)
[2024-03-03 23:42] LABS: Adenovirus PCR Not Detected (NotDetected); Bordetella parapertussis PCR Not Detected (NotDetected); Bordetella pertussis PCR Not Detected (NotDetected); Chlamydia pneumoniae PCR Not Detected (NotDetected); Coronavirus 229E PCR Not Detected (NotDetected); Coronavirus CoV-2 (COVID19)PCR Not Detected (NotDetected); Coronavirus HKU1 PCR Not Detected (NotDetected); Coronavirus NL63 PCR Not Detected (NotDetected); Coronavirus OC43PCR Not Detected (NotDetected); Human Metapneumovirus PCR Not Detected (NotDetected); Influenza A PCR Not Detected (NotDetected); Influenza B PCR Not Detected (NotDetected); Mycoplasma pneumoniae PCR Not Detected (NotDetected); Parainfluenza Virus 1 PCR Not Detected (NotDetected); Parainfluenza Virus 2 PCR Not Detected (NotDetected); Parainfluenza Virus 3 PCR Not Detected (NotDetected); Parainfluenza Virus 4 PCR Not Detected (NotDetected); Respiratory Syncytial VirusPCR Not Detected (NotDetected); Rhinovirus/Enterovirus PCR DETECTED (NotDetected)
[2024-03-03 23:45] LABS: INR 1.1 (0.9-1.1); Partial Thromboplastin Ratio 1.1; Partial Thromboplastin Time 30 Seconds (21-31); Prothrombin Time 11.9 Seconds (9.0-12.0)
--- NOTE | 2024-03-04 00:12 | History & Physical Report ---
Date of Service March 04, 2024 Assessment & Plan (1) Acute respiratory failure with hypoxia: Plan: - likely multifactorial in the setting of rhino/enterovirus and concern for possible aspiration - SIRS + with tachycardia and tachypneic-> s/p 1500mL fluid bolus, which covers his sepsis bolus 30nl/kg - creatine= 1.27 with baseline of 1, so perhaps a little dehydrated - lactate/procal both negative and no leukocytosis - blood cultures are pending - started on Zosyn-> given concern for aspiration plan to continue. MRSA nares pending - aspiration precautions, speech saw during admission 2020 and no specific recommendations - was also seen by pulm/GI during 2020 admission - s/p 125mg methylprednisone in ED-> continue 40mg IV BID - DuoNeb q6 scheduled - wean oxygen as tolerated (2) Aspiration pneumonia: Plan: Plan as per above (3) Rhinovirus: Plan: Plan as per above - droplet precautions (4) Allergic rhinitis: Plan: - continue Combivent, fexodenadine (5) Abdominal pain: Plan: - mild diffuse tenderness without nausea/vomiting, change in BM - possible viral gastritis - f/u official read KUB (6) Elevated troponin: Plan: - Troponin= 68 with repeat pending - no chest pain, EKG without acute ischemic changes - likely demand ischemia in the setting of acute resp failure - continue to trend troponin Plan Diet: regular Code: Full Dispo: PCU VTE Prophylaxis: Lovenox History of Present Illness Primary Care Provider: Precious Ashley DO 38 year old male with a past medical history of esophageal stricture, trisomy 21, allergic rhinitis, gastritis and prior esophageal reconstruction presenting with cough/congestion x 2 days, found to be hypoxic to the 60s upon presentation. Notes some abdominal pain intermittently; denies nausea/vomiting. Had a BM today, that he states was normal- nonbloody, no diarrhea. Denies chest/pleuritic pain. Does have a history of aspiration PNA-> was admitted in 2020, very similar presentation then. No complaints at present. ED Course Significant for: Hypoxic with sPO2 upon arrival-> placed on 25L High Flow with spO2 up to 90s. Tachycardic to 150s-> s/p 1.5L NSS and now down to 70s. CBC/BMP unremarkable. Procal= 0.08. Trop= 68-> repeat pending. Lactate= 1.6. EKG with NSR, no acute ischemic changes. Resp biofire + for rhino/enterovirus. CXR which appears to show B/L airspace opacities- formal read pending. KUB with pos-operative changes-> formal read pending. Allergies Allergy/AdvReac Type Severity Reaction Status Date / Time gluten Allergy Severe Abdominal Verified 04/08/21 10:45 Pain lamotrigine Allergy Unknown Verified 11/28/21 16:23 Sulfa (Sulfonamide Allergy Unknown Verified 11/28/21 16:23 Antibiotics) Home Medications Medication Instructions Recorded Confirmed Type fexofenadine 180 mg tablet 180 mg PO DAILY 12/13/20 03/03/24 History (Angelica Allergy) multivitamin 1 tab PO DAILY 12/20/20 03/03/24 History ipratropium 20 mcg-albuterol 100 1 puff inhalation BID 03/03/24 03/03/24 History mcg/actuation mist for inhalation (Combivent Respimat) Past Med/Surg History Problem List Elevated troponin Rhinovirus Down's syndrome (05/24/12) Aspiration pneumonia (Acute) History of esophageal surgery reconstructed esophagus GERD with stricture Multifocal pneumonia (Acute) Acute respiratory failure with hypoxia (Acute) Respiratory failure (Acute) Allergic rhinitis Dehydration (Acute) Abdominal pain (Acute) Medical History Bronchostenosis DVT prophylaxis Hypoxia Sepsis Pneumonia Esophageal stricture reconstructed esophagus Aspiration into airway Trisomy 21 Social History Smoking Status: Never smoker Hx Alcohol Use: No Hx Substance Use: No Preferred Language: Kyrgyz Communication Ability: Effective Communication Ability Comment: Father at bedside Bed Bug Exterminator Required: No Beliefs That Will Affect Care: None marital status: Single Current Living Situation: Family Feels Safe at Home: Yes Assistive Devices: None Review of Systems Review of Systems: As per above Physical Exam Physical Exam: Constitutional: well-appearing, no acute distress HEENT: NCAT, no conjunctival injection CV: regular rhythm, no murmur appreciated, extremities well-perfused, no LE edema Resp: CTABL, + exp wheezes throughout, crackles bases, no increased work of breathing GI: soft, nondistended, mild diffuse tenderness without rebound/guarding, BS normoactive MSK: no gross deformities appreciated Skin: warm, dry, no rash appreciated Neuro: alert, oriented, no focal neurologic deficit appreciated Results & Data Results & Data Vital Signs (Past 12 Hours) Vital Signs Temp Pulse Pulse Resp BP BP Pulse Ox 03/03/24 23:28 95 H 95 H 112/78 97 03/03/24 23:24 30 H 99 03/03/24 22:55 93 H 96 03/03/24 22:45 100 H 03/03/24 22:35 36.8 C 152 H 20 114/69 64 L O2 Del Method O2 Flow Rate FiO2 03/03/24 23:28 High Flow Nasal Cannula 25 03/03/24 23:24 High Flow Nasal Cannula 25 60 03/03/24 22:55 High Flow Nasal Cannula 25 03/03/24 22:45 03/03/24 22:35 Room Air Laboratory Results Laboratory Results WBC 10.54 K/ul (4.8-10.8) 03/03/24 22:55 RBC 5.04 M/uL (4.70-6.10) 03/03/24 22:55 Hgb 14.3 g/dl (14.0-18.0) 03/03/24 22:55 Hct 45.0 % (42.0-52.0) 03/03/24 22:55 MCV 89.3 fL (80.0-100.0) 03/03/24 22:55 MCH 28.4 pg (25.0-34.0) 03/03/24 22:55 MCHC 31.8 g/dL (32.0-36.0) L 03/03/24 22:55 RDW Std Deviation 63.0 fL (36.4-46.3) H 03/03/24 22:55 RDW Coeff of Jorge 19.6 % (11.5-14.5) H 03/03/24 22:55 Plt Count 275 K/uL (130-400) 03/03/24 22:55 MPV 9.7 fL (9.4-12.4) 03/03/24 22:55 Immature Gran % (Auto) 0.6 % 03/03/24 22:55 Neut % (Auto) 75.6 % 03/03/24 22:55 Lymph % (Auto) 13.9 % 03/03/24 22:55 Wythe % (Auto) 8.1 % 03/03/24 22:55 Eos % (Auto) 0.9 % 03/03/24 22:55 Baso % (Auto) 0.9 % 03/03/24 22:55 Neut # (Auto) 7.97 K/uL (1.40-6.50) H 03/03/24 22:55 Lymph # (Auto) 1.47 K/uL (1.20-3.40) 03/03/24 22:55 Wythe # (Auto) 0.85 K/uL (0.11-0.59) H 03/03/24 22:55 Eos # (Auto) 0.10 K/uL (0.00-0.50) 03/03/24 22:55 Baso # (Auto) 0.09 K/uL (0.00-0.20) 03/03/24 22:55 Immature Gran # (Auto) 0.06 K/uL (0.01-0.20) 03/03/24 22:55 PT 11.9 Seconds (9.0-12.0) 03/03/24 22:55 INR 1.1 (0.9-1.1) 03/03/24 22:55 APTT 30 Seconds (21-31) 03/03/24 22:55 PTT Ratio 1.1 03/03/24 22:55 Sodium 140 mmol/L (136-145) 03/03/24 22:55 Potassium 4.3 mmol/L (3.5-5.1) 03/03/24 22:55 Chloride 104 mmol/L (98-107) 03/03/24 22:55 Carbon Dioxide 28 mmol/L (21-32) 03/03/24 22:55 Anion Gap 8 (3-11) 03/03/24 22:55 BUN 20 mg/dl (6-23) 03/03/24 22:55 Creatinine 1.27 mg/dl (0.6-1.4) 03/03/24 22:55 Est Cr Clr Drug Dosing 53.5 ml/min 03/03/24 22:55 eGFR 74.16 03/03/24 22:55 BUN/Creatinine Ratio 15.7 (10-20) 03/03/24 22:55 Glucose 202 mg/dl (70-99(Fasting)) H 03/03/24 22:55 Lactate 1.6 mmol/L (0.4-2.0) 03/03/24 22:55 Calcium 9.1 mg/dl (8.6-10.3) 03/03/24 22:55 Total Bilirubin 0.3 mg/dl (0.2-1.0) 03/03/24 22:55 AST 19 U/L (13-39) 03/03/24 22:55 ALT 19 U/L (7-52) 03/03/24 22:55 Alkaline Phosphatase 79 U/L (34-104) 03/03/24 22:55 Troponin I High Sens 68.0 pg/ml (0-20) H* 03/03/24 22:55 Total Protein 7.1 gm/dl (6.0-8.3) 03/03/24 22:55 Albumin 3.8 gm/dl (3.4-5.0) 03/03/24 22:55 Globulin 3.3 gm/dl (2.5-4.0) 03/03/24 22:55 Albumin/Globulin Ratio 1.2 (0.9-2) 03/03/24 22:55 Procalcitonin 0.08 ng/ml (0-0.5) 03/03/24 22:55 Nasal Screen MRSA (PCR) Negative (Negative) 03/03/24 23:45 Adenovirus (PCR) Not Detected (NotDetected) 03/03/24 22:44 B. pertussis DNA (PCR) Not Detected (NotDetected) 03/03/24 22:44 B.parapertussis DNA PCR Not Detected (NotDetected) 03/03/24 22:44 C. pneumoniae DNA (PCR) Not Detected (NotDetected) 03/03/24 22:44 Coronavirus OC43 (PCR) Not Detected (NotDetected) 03/03/24 22:44 Coronavirus HKU1 (PCR) Not Detected (NotDetected) 03/03/24 22:44 Coronavirus 229E (PCR) Not Detected (NotDetected) 03/03/24 22:44 SARS-CoV-2 (PCR) Not Detected (NotDetected) 03/03/24 22:44 Coronavirus NL63 (PCR) Not Detected (NotDetected) 03/03/24 22:44 Human Metapneumovir PCR Not Detected (NotDetected) 03/03/24 22:44 Influenza Type A (PCR) Not Detected (NotDetected) 03/03/24 22:44 Influenza Type B (PCR) Not Detected (NotDetected) 03/03/24 22:44 M. pneumoniae (PCR) Not Detected (NotDetected) 03/03/24 22:44 Parainfluenza 1 (PCR) Not Detected (NotDetected) 03/03/24 22:44 Parainfluenza 2 (PCR) Not Detected (NotDetected) 03/03/24 22:44 Parainfluenza 3 (PCR) Not Detected (NotDetected) 03/03/24 22:44 Parainfluenza 4 (PCR) Not Detected (NotDetected) 03/03/24 22:44 RSV (PCR) Not Detected (NotDetected) 03/03/24 22:44 Entero/Rhino (PCR) DETECTED (NotDetected) A 03/03/24 22:44 Impressions Chest/Abdomen X-ray 03/03/24 22:48 Exam(s): XR ABDOMEN, 2 views EXAM: XR Abdomen, 2 Views and XR Chest, 1 View CLINICAL HISTORY: Reason for exam: sob/hypoxia, abdominal pain w/ coughing. TECHNIQUE: Frontal view of the chest, frontal view of the abdomen/pelvis and upright or decubitus view of the abdomen. COMPARISON: 06/12/2022. . FINDINGS: Lungs: There are extensive bilateral infiltrates.. Pleural space: There are possible small bilateral pleural effusions. No pneumothorax. Heart: Heart is top normal in size.. Intraperitoneal space: No free air. Gastrointestinal tract: There is air and stool noted in the colon. No significantly distended loops of small bowel are identified.. Bones/joints: There is a scoliosis in the spine.. IMPRESSION: There are extensive bilateral infiltrates with possible small bilateral pleural effusions Unremarkable bowel gas pattern. Electronically signed by: Allen Macario MD 03/04/24 01:14 AM Supervising Physician Co-Signing Physician Notes Patient seen and examined, chart reviewed, case discussed with Dr. Daniel and I agree with the assessment and plan as above. In brief, patient is a 38yo male with Trisomy 21, GERD presenting with acute hypoxic respiratory failure. Patient on HFNC 50% FiO2 at present, breathing comfortably, much improved from prior Awake, alert and answering questions Skin - no rash HEENT - MMM, Neck supple Heart - +S1/S2, regular, no m/r/g Lungs- +crackles present in right anterior lung field and bilateral bases, no rhonchi or wheezes Abd - +BS, mildly tender with deep palpation, no rebound guarding or peritonitis Ext - warm, well perfused Labs and images reviewed CXR/KUB read returned - diffuse bilateral airspace disease and non-obstructive bowel gas pattern Assessment/plan ?Enterovirus vs aspiration event leading to patient's acute hypoxic respiratory failure Not sure if he has been formally diagnosed with asthma - he has a Combivent inhaler but patient and his father report that he doesn't use it frequently Will continue steroids and nebs for now - if continues to improve would DC in AM as patient does not seem to be overly bronchospastic Continue Zosyn for now Aspiration precautions Trend troponin Remainder as above Resident Activity Tracking Resident Involvement: Resident Care Provided Care Provided: Adult Hospital Medicine (2) Aspiration pneumonia Aspiration pneumonia type: unspecified Laterality: bilateral Lung location: lower lobe of lung Qualified Code(s): J69.0 - Pneumonitis due to inhalation of food and vomit (5) Abdominal pain Abdominal location: generalized Qualified Code(s): R10.84 - Generalized abdominal pain
[2024-03-04] MEDS: SODIUM CHLORIDE 0.9% 500 ML IV ONE (00:20)
--- NOTE | 2024-03-04 01:15 | XRay Report ---
Exam(s): XR ABDOMEN, 2 views EXAM: XR Abdomen, 2 Views and XR Chest, 1 View CLINICAL HISTORY: Reason for exam: sob/hypoxia, abdominal pain w/ coughing. TECHNIQUE: Frontal view of the chest, frontal view of the abdomen/pelvis and upright or decubitus view of the abdomen. COMPARISON: 06/12/2022. . FINDINGS: Lungs: There are extensive bilateral infiltrates.. Pleural space: There are possible small bilateral pleural effusions. No pneumothorax. Heart: Heart is top normal in size.. Intraperitoneal space: No free air. Gastrointestinal tract: There is air and stool noted in the colon. No significantly distended loops of small bowel are identified.. Bones/joints: There is a scoliosis in the spine.. IMPRESSION: There are extensive bilateral infiltrates with possible small bilateral pleural effusions Unremarkable bowel gas pattern. Electronically signed by: Allen Macario MD 03/04/24 01:14 AM
[2024-03-04] MEDS ORDERED: IPRATROPIUM BROMIDE/ALBUTEROL respimat INH INH SCH (01:49)
--- NOTE | 2024-03-04 01:50 | Billing Data ---
Date of Service March 04, 2024 Coding Level of Care Code 91441 INT INP/OBS CARE
[2024-03-04] MEDS ORDERED: ALBUTEROL HFA 8 GM INHALER INH PRN (02:12)
[2024-03-04] MEDS ORDERED: IPRATROPIUM BROMIDE HFA INHALER INH PRN (02:12)
[2024-03-04] MEDS: PIPERACILLIN/TAZOBACTAM 4.5 GM/100 ML BAG IV SCH (03:49)
[2024-03-04 07:24] LABS: Hematocrit (blood only) 38.6 % (42.0-52.0); Hemoglobin 12.5 g/dl (14.0-18.0); Mean Corpuscular Hemoglobin 28.7 pg (25.0-34.0); Mean Corpuscular Hgb Conc 32.4 g/dL (32.0-36.0); Mean Corpuscular Volume 88.7 fL (80.0-100.0); Mean Platelet Volume 9.6 fL (9.4-12.4); Platelet Count 243 K/uL (130-400); RDW Coefficient of Variation 19.2 % (11.5-14.5); RDW Standard Deviation 62.2 fL (36.4-46.3); Red Blood Count 4.35 M/uL (4.70-6.10); White Blood Count 9.16 K/ul (4.8-10.8)
[2024-03-04 07:42] LABS: Basophils # (auto) 0.02 K/uL (0.00-0.20); Basophils % (auto) 0.2 %; Immature Granulocytes # (auto) 0.04 K/uL (0.01-0.20); Immature Granulocytes % (auto) 0.4 %; Lymphocytes # (auto) 0.49 K/uL (1.20-3.40); Lymphocytes % (auto) 5.3 %; Monocytes # (auto) 0.11 K/uL (0.11-0.59); Monocytes % (auto) 1.2 %; Neutrophils % (auto) 92.9 %
[2024-03-04] MEDS: ALBUT/IPRATROP 3MG/0.5MG NEB 3 ML VIAL NEB SCH (07:50)
[2024-03-04] MEDS: MULTIVITAMIN TAB PO SCH (08:29)
[2024-03-04] MEDS: FEXOFENADINE HCL 180 MG TAB PO SCH (08:29)
[2024-03-04] MEDS: methylPREDNISolone 40 MG in SYRINGE 0 ML IV SCH (08:29)
[2024-03-04] MEDS ORDERED: methylPREDNISolone 125 MG/2 ML VIAL IV SCH (09:00)
[2024-03-04 10:06] LABS: Potassium 4.3 mmol/L (3.5-5.1)
[2024-03-04] MEDS ORDERED: GLUCOSE 40% GEL 15 GM TUBE PO PRN (11:20)
[2024-03-04] MEDS ORDERED: CARBOHYDRATES FOR HYPOGLYCEMIA PO PRN (11:20)
[2024-03-04] MEDS ORDERED: GLUCOSE 10 TAB/TUBE PO PRN (11:20)
[2024-03-04] MEDS ORDERED: GLUCAGON FOR INJ 1 MG VIAL SQ PRN (11:20)
[2024-03-04] MEDS ORDERED: DEXTROSE 50% 50 ML SYRINGE IV PRN (11:20)
--- NOTE | 2024-03-04 11:23 | History & Physical Bridge Note ---
Date of Service March 04, 2024 History & Physical Bridge Note I have examined the patient, reviewed the History & Physical and in the interval since the performance of the History & Physical I have noted the following changes of clinical significance: Pt weaned off Vapotherm to 7LNC when I saw him. He is coughing up some sputum. Overall feeling much better and started ambulating around the room. Spoke with his mom and dad at the bedside. Before the last 2 days, he was doing very well, no chronic cough. No fevers or chills. No diarrhea, had a BM today and yesterday Here with hyperglycemia on arrival. Has a h/o prediabetes. I discussed his care with Pulmonology Vitals reviewed Gen-small stature, facial features of Trisomy 21 RRR no mgr , no edema Pulm-decreased BS bilat, no wheezes,crackles, rhonchi Abd-+BS soft NT ND Skin -no rashes CBC, BMP, troponin, LFTs reviewed 38 yo male with a h/o DOwn Syndrome, esophageal atresia with colonic transposition, esophageal stricture, absence of lower esophageal sphincter, aspiration PNA, here with severe multifocal PNA, acute respiratory failure with hypoxemia requiring Vapotherm. Also with elevated troponin Add flutter valve, continue antibiotics, stop IV steroids COnsult PULM appreciated Check sputum culture continue pulm toilet Aspiration/reflux precautions Check ECHO given elevated troponin although ECG without ischemic changes, no chest pain Check HgbA1C given hyperglycemia over 200. Add on Novolog SSI
[2024-03-04 12:23] LABS: Estimated Average Glucose 120 mg/dl; Hemoglobin A1C 5.8 % (4.5-5.6)
[2024-03-04] MEDS: INSULIN ASPART PER UNIT CHARGE SC SCH (12:45)
--- NOTE | 2024-03-04 13:15 | Pulmonary Consultation ---
Date of Consultation March 04, 2024 Assessment & Plan (1) Tracheobronchitis: (2) Acute viral bronchiolitis: (3) Acute respiratory failure with hypoxia: Plan 38-year-old male with a complex history of trisomy 21, esophagectomy with colonic interposition surgery presenting to the hospital due to acute viral bronchiolitis and hypoxemic respiratory failure. I do suspect an element of potential bacterial tracheobronchitis. I have de- escalated antibiotics to ceftriaxone and azithromycin. Recommend a 5 to 7-day course of antibiotics and can likely be transition to p.o. cefdinir and p.o. azithromycin in the next day or 2. Continue to wean oxygen as able. Continue aspiration precautions given his history of complex gastrointestinal disorder. Continue with Blanka as needed. Obtain sputum culture if able. No further recommendations at this time. Please call with questions. Discussed with hospitalist service via [place] text, bedside nurse at bedside and patient's mother at bedside. History of Present Illness Reason for Consultation: Community-acquired pneumonia Attending Physician: Alyssa Bashir MD History of Present Illness 35-year-old male with a history of trisomy 21 who presented to the hospital due to several days of increasing shortness of breath and cough. He was found to be hypoxemic in the ER and placed on high flow oxygen. His oxygenation requirements have improved and he is now down to 7 L of oxygen. He denies any cough or shortness of breath at present. He does cough intermittently during his exam. His mother is able to get collateral history. She does note that he was intubated several years ago for severe pneumonia and has undergone bronchoscopy in the past. He follows with allergy and immunology for history of allergic rhinitis and recurrent pneumonias. 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 He then had a second colon interposition operation at the age of 5. He undergoes dilations every 3 to 4 years. He has had episodes of aspiration pneumonia in the past although they have been fairly infrequent. His chest x-ray this admission demonstrates bilateral infiltrates similar to previous x-ray from 2020. No significant pleural effusions are seen. Respiratory viral panel was positive for enterovirus. He was started on Zosyn. This cough and shortness of breath are improving along with his oxygen requirements. Prior blood culture in 2018 revealed pansensitive Streptococcus pneumonia. Blood cultures this admission are pending. Sputum culture ordered, but not completed. Allergies Allergy/AdvReac Type Severity Reaction Status Date / Time gluten Allergy Severe Abdominal Verified 04/08/21 10:45 Pain lamotrigine Allergy Unknown Verified 11/28/21 16:23 Sulfa (Sulfonamide Allergy Unknown Verified 11/28/21 16:23 Antibiotics) Home Medications Medication Instructions Recorded Confirmed Type fexofenadine 180 mg tablet 180 mg PO DAILY 12/13/20 03/03/24 History (Angelica Allergy) multivitamin 1 tab PO DAILY 12/20/20 03/03/24 History ipratropium 20 mcg-albuterol 100 1 puff inhalation BID 03/03/24 03/03/24 History mcg/actuation mist for inhalation (Combivent Respimat) Patient History Medical History Bronchostenosis DVT prophylaxis Hypoxia Sepsis Pneumonia Esophageal stricture reconstructed esophagus Aspiration into airway Trisomy 21 Social History Smoking Status: Never smoker Hx Alcohol Use: No Hx Substance Use: No Preferred Language: Malian Communication Ability: Effective Communication Ability Comment: Father at bedside Elevator Troubleshooter Required: No Beliefs That Will Affect Care: None marital status: Single Current Living Situation: Family Feels Safe at Home: Yes Assistive Devices: None Review of Systems Review of Systems: All systems reviewed & are unremarkable except as noted in HPI & below Physical Exam Physical Exam: Constitutional: Patient appears to be of their stated age. Patient is in no apparent distress. Patient is well-developed. Eyes: Pupils are equal round and reactive to light. Conjunctivae are normal. Anicteric sclera. Ears nose, mouth and throat: No perioral cyanosis. Neck: Trachea is midline. Visual inspection is normal. Respiratory: Mild rhonchi noted on the anterior chest. No tachypnea or increased work of breathing. Cardiovascular: Regular rate and rhythm. No murmurs. No edema. Gastrointestinal: Normal bowel sounds, soft, nontender and nondistended. No hepatosplenomegaly noted. Musculoskeletal: No cyanosis. Patient is able to move all extremities. Strength is 5 out of 5 in the upper and lower extremities. Skin: No rashes, warm dry and intact. Neurologic: No obvious focal neurological deficits seen. Psychiatric: Alert and oriented x3 with a euthymic affect. Skin: no rashes, warm and dry Lymphatic: no cervical or axillary lymphadenopathy Results & Data Results & Data Vital Signs (Past 12 Hours) Vital Signs Temp Pulse Pulse Resp BP BP Pulse Ox 03/04/24 11:56 36.6 C 67 17 110/71 96 03/04/24 10:50 19 96 03/04/24 08:16 36.4 C L 65 20 96/63 L 94 03/04/24 07:53 21 92 03/04/24 07:25 03/04/24 07:08 61 03/04/24 06:02 36.5 C 65 20 96/63 L 96 03/04/24 01:56 79 03/04/24 01:54 82 20 92 03/04/24 01:40 03/04/24 01:40 36.8 C 71 20 91/61 L 94 03/04/24 01:10 82 30 H 111/71 94 O2 Del Method O2 Flow Rate FiO2 03/04/24 11:56 Nasal Cannula 15 03/04/24 10:50 Nasal Cannula 7 03/04/24 08:16 High Flow Nasal Cannula 03/04/24 07:53 High Flow Nasal Cannula 20 50 03/04/24 07:25 High Flow Nasal Cannula 25 50 03/04/24 07:08 03/04/24 06:02 High Flow Nasal Cannula 03/04/24 01:56 03/04/24 01:54 High Flow Nasal Cannula 25 50 03/04/24 01:40 High Flow Nasal Cannula 25 50 03/04/24 01:40 High Flow Nasal Cannula 25 50 03/04/24 01:10 High Flow Nasal Cannula 25 PG Care Time/CCT Total # of Minutes Spent Total Time Spent with Patient: Total time spent is greater than 50% in coordination of care (as documented) at patient's floor/unit and/or counseling patient: Coding Level of Care Code 30027 IN/OBS CONSULT LVL 4,60M Diagnoses Tracheobronchitis J40 Acute viral bronchiolitis J21.8; B97.89 Acute respiratory failure with hypoxia J96.01
[2024-03-04] MEDS: cefTRIAXone SODIUM 2,000 MG/50 ML BAG IV SCH (14:29)
[2024-03-04] MEDS: AZITHROMYCIN 500 MG in SODIUM CHLORIDE 0.9% 250 ML IV STA (14:33)
--- NOTE | 2024-03-04 14:57 | XCELERA ---
[id number] \\[id number]
[2024-03-05] MEDS: AZITHROMYCIN 250 MG in SODIUM CHLORIDE 0.9% 250 ML IV SCH (06:11)
[2024-03-05 07:40] LABS: Basophils # (auto) 0.03 K/uL (0.00-0.20); Basophils % (auto) 0.3 %; Hematocrit (blood only) 37.5 % (42.0-52.0); Hemoglobin 12.1 g/dl (14.0-18.0); Immature Granulocytes # (auto) 0.04 K/uL (0.01-0.20); Immature Granulocytes % (auto) 0.3 %; Lymphocytes % (auto) 8.7 %; Mean Corpuscular Hemoglobin 28.7 pg (25.0-34.0); Mean Corpuscular Hgb Conc 32.3 g/dL (32.0-36.0); Mean Corpuscular Volume 89.1 fL (80.0-100.0); Mean Platelet Volume 10.2 fL (9.4-12.4); Monocytes # (auto) 0.84 K/uL (0.11-0.59); Monocytes % (auto) 7.3 %; Neutrophils # (auto) 9.62 K/uL (1.40-6.50); Neutrophils % (auto) 83.4 %; Platelet Count 288 K/uL (130-400); RDW Coefficient of Variation 19.4 % (11.5-14.5); RDW Standard Deviation 62.7 fL (36.4-46.3); Red Blood Count 4.21 M/uL (4.70-6.10); White Blood Count 11.53 K/ul (4.8-10.8)
[2024-03-05 07:54] LABS: BUN Creatinine Ratio 13.3 (10-20); Calcium 8.7 mg/dl (8.6-10.3); Creatinine Clr Calc Pharmacy 83.3 ml/min; Potassium 4.4 mmol/L (3.5-5.1)
--- NOTE | 2024-03-05 08:37 | Electrocardiogram Report ---
Test Reason : Blood Pressure : */* mmHG Vent. Rate : 93 BPM Atrial Rate : 93 BPM P-R Int : 110 ms QRS Dur : 92 ms QT Int : 366 ms P-R-T Axes : 45 55 39 degrees QTcB Int : 455 ms Sinus rhythm with short [place] Otherwise normal ECG When compared with ECG of 20-Dec-2020 15:15, No significant change was found Confirmed by Gómez Moise ([id number]) on 03/05/2024 8:37:09 AM Referred By: REFERRED SELF Confirmed By: Gómez Moise
--- NOTE | 2024-03-05 19:08 | Hospitalist Progress Note ---
Date of Service March 05, 2024 Assessment & Plan (1) Tracheobronchitis: Plan: - likely multifactorial in the setting of rhino/enterovirus and concern for possible aspiration -Patient seen by Dr. Campbell in consultation with pulmonary. He agrees with potential bacterial tracheobronchitis. Continue p.o. cefdinir and azithromycin. - SIRS + with tachycardia and tachypneic-> s/p 1500mL fluid bolus, which covers his sepsis bolus 30nl/kg - creatine= 1.27 with baseline of 1, so perhaps a little dehydrated - lactate/procal both negative and no leukocytosis - blood cultures are pending - started on Zosyn-> given concern for aspiration plan to continue. Sputum culture is negative. Continue with oral antibiotics as above - aspiration precautions, speech saw during admission 2020 and no specific recommendations - was also seen by pulm/GI during 2020 admission - s/p 125mg methylprednisone in ED-> discontinue steroids as patient has no bronchospasm and is doing well with titration of supplemental oxygen - DuoNeb q6 scheduled - wean oxygen as tolerated (2) Acute respiratory failure with hypoxia: Plan: Secondary to acute viral illness. Patient is doing well and titrating down supplemental oxygen via nasal cannula Repeat chest x-ray tomorrow secondary to question of pleural effusions Continue supportive care (3) Aspiration pneumonia: Plan: Not clear the patient has aspiration Continue to treat tracheobronchitis as above Check repeat chest x-ray tomorrow No indication for workup at this time. Will reevaluate tomorrow (4) Elevated troponin: Plan: No chest pain or EKG changes Most likely demand ischemia secondary to acute respiratory illness with hypoxia (5) GERD with stricture: Plan: Patient denies any midepigastric or chest pain Eating well Unremarkable bowel gas pattern on abdominal x-ray Continue supportive care (6) Abdominal pain: Plan: Nausea and vomiting is resolved. No further abdominal pain No acute etiology on abdominal x-ray Plan Continue to monitor on telemetry due to hypoxia. VTE prophylaxis with Lovenox Patient ambulating well in hallway. Continue to encourage Admission and Anticipated Discharge Date Admission Date: March 04, 2024 Supervising Physician Co-Signing Physician Notes chart reviewed, case d/w E Viji PAC - as above Subjective Attending: Dr. Khan 38-year-old male with Down syndrome who was been admitted yesterday for acute respiratory failure with hypoxia. Patient found to have rhinovirus and placed on droplet precautions. Patient currently is doing much better. Supplemental oxygen has been weaned down to 4 L/min via nasal cannula. Patient initially had elevated sugars secondary to stress dose steroids given in emergency department. Steroids have been discontinued. Sugars are now in the 90s. Sliding scale insulin as well as [id number] blood glucose discontinued per request of patient's mother. Patient is ambulating in the rodas several laps per hour with his family. He has no acute distress. Patient denies any chest pain or tightness. No significant cough. No sputum production. No hemoptysis. No chest pain or tightness. Review of Systems 2 Review of Systems: A total of 10 systems was reviewed and is negative other than as listed in the HPI Physical Exam 2 Physical Exam: GENERAL : No acute distress EYES: No icterus, gaze conjugate NOSE: No evidence of epistaxis. Nasal cannula in place and secure MOUTH: No lesions or candidiasis NECK: Supple LUNGS: Some bibasilar rales. No bronchospasm. Good inspirational effort. HEART: Regular, rate controlled ABDOMEN: Soft, NT, ND, BS Present EXTREMITIES: No LE edema, pedal pulses intact NEURO: A&OX3 Results & Data Results & Data Vital Signs (Past 12 Hours) Vital Signs Temp Pulse Resp BP Pulse Ox O2 Del Method O2 Flow Rate 03/05/24 17:26 36.3 C L 62 18 103/66 96 Nasal Cannula 3 03/05/24 12:23 71 18 99 Nasal Cannula 4 03/05/24 12:02 Nasal Cannula 4 03/05/24 11:22 36.4 C L 66 20 103/64 96 Room Air, Nasal Cannula 4 03/05/24 07:16 62 18 96 Nasal Cannula 4 03/05/24 07:13 36.4 C L 58 L 20 100/63 97 Nasal Cannula 4 Laboratory Results 03/05/24 06:19 03/05/24 06:19 Diagnostic Findings Chest/Abdomen X-ray 03/03/24 22:48 Exam(s): XR ABDOMEN, 2 views EXAM: XR Abdomen, 2 Views and XR Chest, 1 View CLINICAL HISTORY: Reason for exam: sob/hypoxia, abdominal pain w/ coughing. TECHNIQUE: Frontal view of the chest, frontal view of the abdomen/pelvis and upright or decubitus view of the abdomen. COMPARISON: 06/12/2022. . FINDINGS: Lungs: There are extensive bilateral infiltrates.. Pleural space: There are possible small bilateral pleural effusions. No pneumothorax. Heart: Heart is top normal in size.. Intraperitoneal space: No free air. Gastrointestinal tract: There is air and stool noted in the colon. No significantly distended loops of small bowel are identified.. Bones/joints: There is a scoliosis in the spine.. IMPRESSION: There are extensive bilateral infiltrates with possible small bilateral pleural effusions Unremarkable bowel gas pattern. Electronically signed by: Allen Macario MD 03/04/24 01:14 AM PG Care Time/CCT Total # of Minutes Spent Total Time Spent with Patient: Total time spent is greater than 50% in coordination of care (as documented) at patient's floor/unit and/or counseling patient:40 minutes Coding Level of Care Code 37369 SUB INP/OBS CARE 2/35MIN Diagnoses Tracheobronchitis J40 Acute respiratory failure with hypoxia J96.01 Aspiration pneumonia J69.0 Aspiration pneumonia type: unspecified Laterality: bilateral Lung location: lower lobe of lung Elevated troponin R79.89 GERD with stricture K21.9; K22.2 Pain of upper abdomen R10.84 Abdominal location: generalized Time Spent (min) 40 (3) Aspiration pneumonia Aspiration pneumonia type: unspecified Laterality: bilateral Lung location: lower lobe of lung Qualified Code(s): J69.0 - Pneumonitis due to inhalation of food and vomit (6) Abdominal pain Abdominal location: generalized Qualified Code(s): R10.84 - Generalized abdominal pain
--- OUTSIDE RECORDS SUMMARY | 2024-03-06 05:49 | External Medical Summary | Continuity of Care Document ---
Author Name Unknown Organization [id number] Address [address] [place] [id number] Care Team Providers Care Therapy Manager Name Role Phone Precious Araujo Primary Care manjinder [phone] Encounter [facility] [id number] Date(s): 01/28/24 - 01/28/24 [facility] [address] [place] [id number] [address] [place], [place] [id number] Encounter Diagnosis Left foot pain(Discharge Diagnosis) - 01/28/24 Arthritis of left foot(Discharge Diagnosis) - 01/28/24 Hallux valgus of left foot(Discharge Diagnosis) - 01/28/24 Hallux valgus of right foot(Discharge Diagnosis) - 01/28/24 Discharge Disposition: Home or Self Care Attending Physician: LAURIE Rubalcava Christina L Referring Physician: Citlali Ashley DO, Mariana Annette Allergies, Adverse Reactions, Alerts Substance Criticality Severity Reaction Reaction Severity Status lamoTRIgine rash Active sulfa drugs 1 mother sensitive Active Glutens cough Active 1Family history of sensitivity/reactions Assessment and Plan Extracted from: Title:Orthopaedics Office Visit Note Author:Apolonia Polanco DPM, Christina L Date:01/28/24 1.Left foot pain Discussed with both patient and patient's mom thatI recommendcustom orthotics and patient will be scanned today. I feel these will provide significant support to his mid his foot and also to help alleviate the metatarsalgia pain he is experiencing. Prescribed topical Voltaren gel patient works 3 jobs and I feel it is important for him to apply Voltaren joselito the morning and at nightto help eliminate the inflammation of his arthritis and his metatarsalgia. Discussed that we can consider surgical intervention of the left foot which would consist of the left foot first metatarsal phalangeal jointthis would have a recovery time of 6 weeksat this point we will try to avoid surgical intervention for patient since he is very activeand surgery would take him out from his activities he enjoys doing. 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 Patient provided prescription for custom orthotics and Voltaren gel sent to the pharmacy. Recommend follow-up in 3 months. I spent 6 minute planning including prepping note and chart review. I spent 14 minute [id number] interaction with patient addressing issuesdiscussed in visit today. I spent 10 minute time in postop visitplanning including note finishing in depart process. Total time spent on patient visit 30 minutes. 2.Arthritis of left foot 3.Hallux valgus of left foot 4.Hallux valgus of right foot Immunizations Given and Recorded Vaccine Date Status Refusal Reason SARS-CoV-2 mRNA (tozinameran 5y-11y) 02/01/21 Anuj rded SARS-CoV-2 mRNA (tozinameran 5y-11y) 05/28/20 Anuj rded SARS-CoV-2 mRNA (tozinameran 5y-11y) 04/23/20 Anuj rded influenza virus vaccine, inactivated 12/13/19 Anuj rded influenza virus vaccine, inactivated 12/12/18 Anuj rded influenza virus vaccine, inactivated 12/21/17 Anju rded pneumococcal 23-valent vaccine 11/23/16 Recorded pneumococcal 13-valent vaccine 02/12/15 Recorded tetanus/diphtheria/pertuss, acel (Tdap) 01/11/15 R ecorded varicella virus vaccine 10/28/06 Recorded diphtheria/tetanus/pertuss, acel (DTaP) 10/11/06 R ecorded diphtheria/tetanus/pertuss, acel (DTaP) 12/18/90 R ecorded diphtheria/tetanus/pertuss, acel (DTaP) 11/10/88 R ecorded diphtheria/tetanus/pertuss, acel (DTaP) 06/15/86 R ecorded diphtheria/tetanus/pertuss, acel (DTaP) 85 R ecorded diphtheria/tetanus/pertuss, acel (DTaP) 85 R ecorded hepatitis B pediatric vaccine 04/05/02 Recorded hepatitis B pediatric vaccine 09/27/01 Recorded hepatitis B pediatric vaccine 07/28/01 Recorded measles/mumps/rubella virus vaccine 09/26/92 Recor ded measles/mumps/rubella virus vaccine 12/19/86 Recor ded poliovirus vaccine, inactivated 12/18/90 Recorded poliovirus vaccine, inactivated 11/10/88 Recorded poliovirus vaccine, inactivated 06/15/86 Recorded poliovirus vaccine, inactivated 85 Recorded haemophilus b conjugate (HbOC) vaccine 12/18/90 Re corded haemophilus b conjugate (HbOC) vaccine 11/10/88 Re corded haemophilus b conjugate (HbOC) vaccine 06/15/86 Re corded haemophilus b conjugate (HbOC) vaccine 85 Re corded haemophilus b conjugate (HbOC) vaccine 85 Re corded Medications Angelica Start: 03/09/18 12:48:00 PM EST, Daily Start Date: 03/09/18 Status: Ordered Combivent Respimat 20 mcg-100 mcg/inh inhalation aerosol Start: 01/20/24 1:38:00 PM EDT, 1 puff, inhaled, bid, Disp# 4 g, Refills: 3, Pharmacy: [facility]/pharmacy#[id number] Start Date: 01/20/24 Status: Ordered Digestive Enzymes Start: 08/18/17 9:53:00 AM EDT, Digestive Enzymes, 1 tab Po daily Start Date: 08/18/17 Status: Ordered multivitamin Start: 08/19/22 12:46:00 PM EDT, 1 tab, PO, Daily Start Date: 08/19/22 Status: Ordered Probiotic Formula Start: 11/18/21 12:56:00 PM EDT, 1 cap, PO, Daily Start Date: 11/18/21 Status: Ordered Promethegan 25 mg rectal suppository Start: 04/15/23 11:36:00 AM EST, 1 supp, [place], q6h, Disp# 12 supp, Refills: 0, PRN: as needed for nausea/vomiting, Pharmacy: [facility] #[id number] Start Date: 04/15/23 Status: Ordered Vitamin B12 Start: 08/19/22 12:46:00 PM EDT, 1,000 mcg =, PO, Daily Start Date: 08/19/22 Status: Ordered Vitamin D3 Start: 11/18/21 12:56:00 PM EDT, 500mg po daily Start Date: 11/18/21 Status: Ordered Voltaren 1% topical gel Start: 01/28/24 4:01:00 PM EDT, 1 appl, topical, qid, Disp# 100 g, 4g to affected area 4 times a day, PRN: Pain, Pharmacy: [id number] Start Date: 01/28/24 Status: Ordered Zinc Start: 11/18/21 12:56:00 PM EDT, 30 mg po daily Start Date: 11/18/21 Status: Ordered Mental Status 01/28/24 Barriers to Learning one year Cognitive deficit, Other: father present Mandatory Health Literacy Documentation Yes Health Literacy Communication Barriers N ever Primary Language [place] Problem List Condition Confirmation Course Effective Dates Status H ealth Status Informant Abnormal weight loss Confirmed Active Acne vulgaris Confirmed Active Arthritis of left foot Confirmed Active Chronic diarrhea Confirmed Active Duodenal atresia Confirmed Active Cough Confirmed Active Down syndrome Confirmed Active Esophageal atresia Confirmed Active Family history of melanoma 1 Confirmed Active Left foot pain Confirmed Active H/O vagotomy Confirmed Active Hallux valgus of left foot Confirmed Active Hallux valgus of right foot Confirmed Active Hyperkeratosis Confirmed Active Seizures Confirmed Active 1mother Diagnosis Diagnosis Type Effective Dates Health Status Cl inical Service Informant Hallux valgus of left foot Discharge Diagnosis 01/28/24 Non-Specified Arthritis of left foot Discharge Diagnosis 01/28/24 Non-Specified Hallux valgus of right foot Discharge Diagnosis 01/28/24 Non-Specified Left foot pain Discharge Diagnosis 01/28/24 Non-Specified Procedures Procedure Date Related Diagnosis Body Site Status Bronchoscopy 2013 Completed Rib resection for drainage 10/15/94 Completed Colonic interposition 1990 Com pleted Vagotomy 1987 Completed Resection of ileum 1 07/31/86 Comp leted APPENDECTOMY 07/25/86 Completed Meckel's diverticulum 07/25/86 Com pleted Colonic interposition 1985 Com pleted Cervical esophagostomy 2 Completed 1Resection of devitalized segment of ileum and cecum. 2Feeding Gastrostomy Social History Social History Type Response Smoking Status Never smoked cigaret marco Sex Male Sex Representation Male (finding) Ortho Outpt Note * LAURIE Rubalcava Christina L: PERFORM Event Display: Ortho Outpt Note Authored Date: Primary Care Provider Citlali Ashley DO, Mariana Annette Chief Complaint left foot pain, when walking any distance History of Present Illness Patient is a very pleasant 38-year-old male presenting today for an initial evaluation of forefoot pain and Down syndrome. [facility]. Past medical historyabnormal weight loss acne vulgaris chronic diarrhea cough Down syndromehyperkeratoses seizures. Surgical historybronchoscopyrib resection for drainagevagotomyappendectomyresection of ileumMeckel's diverticulumcolonic interposition cervicalesophagectomy Medicationsreviewed. Allergiesreviewed. Social historydenies smokingdenies alcohol use denies tobacco use. Family historydisorderof immune function hypothyroidism and irritable bowel Review of Systems Down syndrome Physical Exam Problem focused left foot: Dorsalis pedis pulse palpable 2 out of 4, posterior tibial pulse palpable 2-4, capillary refill time is less than 3 seconds, skin turgor is good to all digitsof the left foot pedal hair is present. Gross sensation intact all digits of the left foot. Skin is clean and dry without open wounds. Moderate hallux valgus deformity left footnonreducible to neutral secondary to joint arthritismoderatedorsal medial exostosis present however no pain to palpationthere is some moderate swelling associated with the medial exostosispatient develops what sounds like metatarsalgia painhe is experiencing discomfort under the second and third metatarsal headsand it is likely secondary to the lack of motion at the first MPJ and the severity of the hallux valgus deformitycurrently thereare no areas of acute swelling or discomfort there is no pain on the dorsal aspect of the left footthere is no pain along posterior tibial tendon no pain along peroneal tendons and no pain along Achilles tendon. X-ray dictation 3 views left foot:3 views left foot show moderate arthritis to the left first metatarsal phalangeal jointwith cystic changes noted at the left first metatarsal headsesamoids deviated laterally. Lateral view of the left foot showsaccessory cuboid bonewith moderate midfootarthritis. I personally performed the interpretation of 3 views of the left foot. Problem focused right foot: Brief evaluation of right foot performed showing a moderate hallux valgus deformity right foot nontender at evaluation today. Assessment/Plan 1.Left foot pain Discussed with both patient and patient's mom thatI recommendcustom orthotics and patient will be scanned today. I feel these will provide significant support to his mid his foot and also to help alleviate the metatarsalgia pain he is experiencing. Prescribed topical Voltaren gel patient works 3 jobs and I feel it is important for him to apply Voltaren joselito the morning and at nightto help eliminate the inflammation of his arthritis and hismetatarsalgia. Discussed that we can consider surgical intervention of the left foot which would consist of the left foot first metatarsal phalangeal jointthis would have a recovery time of 6 weeksat this pointwe will try to avoid surgical intervention for patient since he is very activeand surgery would take him out from his activities he enjoys doing. 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 Patient provided prescription for custom orthotics and Voltaren gel sent to the pharmacy. Recommend follow-up in 3 months. I spent 6 minute planning including prepping note and chart review. I spent 14 minute [id number] interaction with patient addressing issuesdiscussed in visit today. I spent 10 minute time in postop visitplanning including note finishing in depart process. Total time spent on patient visit 30 minutes. 2.Arthritis of left foot 3.Hallux valgus of left foot 4.Hallux valgus of right foot Problem List/Past Medical History Ongoing Abnormal weight loss Acne vulgaris Arthritis of left foot Chronic diarrhea Cough Down syndrome Duodenal atresia Esophageal atresia Family history of melanoma H/O vagotomy Hallux valgus of left foot Hallux valgus of right foot Hyperkeratosis Left foot pain Seizures Procedure/Surgical History Bronchoscopy| Service Date: 2012Ri resection for drainage| Service Date: 10/15/1994Colonic interposition| Service Date: 1990Vagotomy| Service Date: 1987Resection of ileum| Service Date: 07/31/1986APPENDECTOMY| Service Date: 07/25/1986Meckel's diverticulum| Service Date: 07/25/1986Colonic interposition| Service Date: 1985Cervical esophagostomy Medications albuterol-ipratropium(Combivent Respimat 20 mcg-100 mcg/inh inhalation aerosol), 1 puff, inhaled, bid, 3 refills bifidobacterium-lactobacillus(Probiotic Formula), 1 cap, PO, Daily cholecalciferol(Vitamin D3) cyanocobalamin(Vitamin B12), 1000 mcg, PO, Daily diclofenac topical(Voltaren 1% topical gel), 1 appl, topical, qid, PRN fexofenadine(Angelica), Daily multivitamin, 1 tab, PO, Daily promethazine(Promethegan 25 mg rectal suppository), 25 mg= 1 supp, [place], q6h, PRN unlisted medication(Digestive Enzymes) zinc sulfate(Zinc) Allergies Glutenscough lamoTRIginerash sulfa drugsmother sensitive Social History Smoking Status Never smoked cigarettes Alcohol - Denies Alcohol Use Tobacco - Denies Tobacco Use Family History Disorder of immune function: Mother. Hypothyroidism: Mother. Irritable bowel syndrome: Mother. Health Status Family Member(s) Immunizations Vaccine Date Status SARS-CoV-2 mRNA (tozinameran 5y-11y) 02/01/2021 Recorded SARS-CoV-2 mRNA (tozinameran 5y-11y) 05/28/2020 Recorded SARS-CoV-2 mRNA (tozinameran 5y-11y) 04/23/2020 Recorded influenza virus vaccine, inactivated 12/13/2019 Recorded influenza virus vaccine, inactivated 12/12/2018 Recorded influenza virus vaccine, inactivated 12/21/2017 Recorded pneumococcal 23-valent vaccine 11/23/2016 Recorded pneumococcal 13-valent vaccine 02/12/2015 Recorded tetanus/diphtheria/pertuss, acel (Tdap) 01/11/2015 Recorded varicella virus vaccine 10/28/2006 Recorded diphtheria/tetanus/pertuss, acel (DTaP) 10/11/2006 Recorded hepatitis B pediatric vaccine 04/05/2002 Recorded hepatitis B pediatric vaccine 09/27/2001 Recorded hepatitis B pediatric vaccine 07/28/2001 Recorded measles/mumps/rubella virus vaccine 09/26/1992 Recorded poliovirus vaccine, inactivated 12/18/1990 Recorded haemophilus b conjugate (HbOC) vaccine 12/18/1990 Recorded diphtheria/tetanus/pertuss, acel (DTaP) 12/18/1990 Recorded poliovirus vaccine, inactivated 11/10/1988 Recorded haemophilus b conjugate (HbOC) vaccine 11/10/1988 Recorded diphtheria/tetanus/pertuss, acel (DTaP) 11/10/1988 Recorded measles/mumps/rubella virus vaccine 12/19/1986 Recorded poliovirus vaccine, inactivated 06/15/1986 Recorded haemophilus b conjugate (HbOC) vaccine 06/15/1986 Recorded diphtheria/tetanus/pertuss, acel (DTaP) 06/15/1986 Recorded poliovirus vaccine, inactivated 1985 Recorded haemophilus b conjugate (HbOC) vaccine 1985 Recorded diphtheria/tetanus/pertuss, acel (DTaP) 1985 Recorded haemophilus b conjugate (HbOC) vaccine 1985 Recorded diphtheria/tetanus/pertuss, acel (DTaP) 1985 Recorded Recommendations Health Maintenance Pending(in the next year) OverDue Adult Influenza Vaccine due09/27/23and every 1year Due Adult COVID-19 Vaccination due01/28/24Unknown Frequency Adult Social Determinants of Health Screening due01/28/24Unknown Frequency Hepatitis C Screening due01/28/24One-time only Lipid Screening due01/28/24Unknown Frequency Pneumococcal Vaccine Adults and Adolescents with Chronic Illness due01/28/24One-time only Due In Future Body Mass Index not due until01/08/25and every 366day Satisfied(in the past 1 year) Satisfied Body Mass Index on01/08/24.Satisfied by GUZMAN Pro Lori Electronic Signature on File Electronically Reviewed/Signed by: Marylin Rubalcava DPM Author Signature Dt/Tm:01/28/2024 04:06 PM Division of Sports Medicine CLR Patient Care team information Care Team Personnel Name: Citlali Ashley DO, Mariana Annette Position: Physician - Family Med Member Role: Primary Care Provider Address: [address] [place] [id number] Name: MD Mazariegos Claudia J Position: Physician - Radiologist Member Role: Lifetime Relationship Address: [address] [place] [id number] [place] Care Team Related Persons Name: MARCO PRO Name: DIVYA ARANGO"
[2024-03-06 05:57] LABS: Basophils # (auto) 0.08 K/uL (0.00-0.20); Basophils % (auto) 1.2 %; Eosinophils # (auto) 0.11 K/uL (0.00-0.50); Eosinophils % (auto) 1.7 %; Hematocrit (blood only) 40.3 % (42.0-52.0); Hemoglobin 12.9 g/dl (14.0-18.0); Immature Granulocytes # (auto) 0.03 K/uL (0.01-0.20); Immature Granulocytes % (auto) 0.5 %; Lymphocytes # (auto) 1.13 K/uL (1.20-3.40); Lymphocytes % (auto) 17.4 %; Mean Corpuscular Hemoglobin 28.7 pg (25.0-34.0); Mean Corpuscular Volume 89.8 fL (80.0-100.0); Mean Platelet Volume 9.9 fL (9.4-12.4); Monocytes # (auto) 0.75 K/uL (0.11-0.59); Monocytes % (auto) 11.6 %; Neutrophils # (auto) 4.39 K/uL (1.40-6.50); Neutrophils % (auto) 67.6 %; Platelet Count 318 K/uL (130-400); RDW Coefficient of Variation 19.1 % (11.5-14.5); RDW Standard Deviation 62.3 fL (36.4-46.3); Red Blood Count 4.49 M/uL (4.70-6.10); White Blood Count 6.49 K/ul (4.8-10.8)
[2024-03-06 06:15] LABS: BUN Creatinine Ratio 16.7 (10-20); Calcium 8.9 mg/dl (8.6-10.3); Creatinine Clr Calc Pharmacy 73.7 ml/min; Potassium 4.3 mmol/L (3.5-5.1)
--- NOTE | 2024-03-06 08:22 | XRay Report ---
EXAM: XR chest 1V portable CLINICAL HISTORY: Acute hypoxia TECHNIQUE: An X-ray image of the chest was obtained in 1 view: AP projection. COMPARISON: 12/20/2020 FINDINGS: Pulmonary Parenchyma: Possible status post esophagectomy with gastric pull up, better seen on CT chest. Inhomogenous air space opacification in bilateral lung middle zones seen with mild interval progression of left mid zone opacification seen with persistent minimal left pleural effusion. Prominent reticular markings in right lung. Medial end of clavicle is not clearly identified on the left side with increased translucency in left lung apical zone, unchanged since 2020. Enlarged cardiac shadow with silhoutting seen in the left cardiac border and mediastinal widening, unchanged. Thoracic spine scoliosis with spondylotic changes. Soft tissues overlying the chest wall are unremarkable. IMPRESSION: 1. Possible status post esophagectomy with gastric pull up, better seen on CT chest. 2. Inhomogenous air space opacification in bilateral lung middle zones seen with mild interval progression of left mid zone opacification seen with persistent minimal left pleural effusion. These may represent infective or inflammatory disease process. Suggest further evaluation with CT chest. Increased since the prior study. 3. Prominent reticular markings in right lung with diffuse reticulonodular pattern, suggesting inflammatory disease process. Unchanged 4. Medial end of the clavicle is not clearly identified on the left side with increased translucency in left lung apical zone, unchanged since 2020. Electronically signed by Allison Jenkins 03-06-2024 08:21 AM
--- NOTE | 2024-03-06 13:33 | Hospitalist Progress Note ---
Date of Service March 06, 2024 Assessment & Plan (1) Tracheobronchitis: Plan: - likely multifactorial in the setting of rhino/enterovirus and concern for possible aspiration -Patient seen by Dr. Campbell in consultation with pulmonary. He agrees with potential bacterial tracheobronchitis. Continue p.o. cefdinir and azithromycin. - SIRS + with tachycardia and tachypneic-> s/p 1500mL fluid bolus, which covers his sepsis bolus 30nl/kg - creatine= 1.27 with baseline of 1, so perhaps a little dehydrated - lactate/procal both negative and no leukocytosis - blood cultures are pending - started on Zosyn-> given concern for aspiration plan to continue. Sputum culture is negative. Continue with oral antibiotics as above - aspiration precautions, speech saw during admission 2020 and no specific recommendations - was also seen by pulm/GI during 2020 admission - s/p 125mg methylprednisone in ED-> discontinue steroids as patient has no bronchospasm and is doing well with titration of supplemental oxygen - DuoNeb q6 changed to as needed due to agitation and no evidence of bronchospasm - wean oxygen as tolerated. Currently at 2 L/min via nasal cannula -Patient seen by Dr. Campbell today. Appreciate his input (2) Acute respiratory failure with hypoxia: Plan: Secondary to acute viral illness. Patient is doing well and titrating down supplemental oxygen via nasal cannula Repeat chest x-ray today with improvement but persistent findings Continue supportive care Family aware that this could take 6 to 8 weeks or longer to clear completely (3) Aspiration pneumonia: Plan: Not clear the patient has aspiration with this event. Mother reports that he has history of aspiration. Continue aspiration precautions Continue to treat tracheobronchitis as above No indication for workup at this time. Will reevaluate tomorrow (4) Elevated troponin: Plan: No chest pain or EKG changes Most likely demand ischemia secondary to acute respiratory illness with hypoxia (5) GERD with stricture: Plan: Patient denies any midepigastric or chest pain Eating well Unremarkable bowel gas pattern on abdominal x-ray Continue supportive care (6) Abdominal pain: Plan: Resolved Nausea and vomiting is resolved. No further abdominal pain No acute etiology on abdominal x-ray Plan Continue to monitor on telemetry due to hypoxia. VTE prophylaxis with Lovenox Patient ambulating well in hallway. Continue to encourage Admission and Anticipated Discharge Date Admission Date: March 04, 2024 Supervising Physician Co-Signing Physician Notes chart reviewed, case d/w E Viji PAC - as above Subjective Attending: Dr. Khan 38-year-old male with Down syndrome who was been admitted yesterday for acute respiratory failure with hypoxia. Patient found to have rhinovirus and placed on droplet precautions. Patient currently is doing much better. Supplemental oxygen has been weaned down to 4 L/min via nasal cannula. Patient initially had elevated sugars secondary to stress dose steroids given in emergency department. Steroids have been discontinued. Sugars are now in the 90s. Sliding scale insulin as well as [id number] blood glucose discontinued since steroids were discontinued. Patient is ambulating in the rod[place] several laps per hour with his family. He has no acute distress. Some agitation with scheduled DuoNebs. Will change to as needed Patient denies any chest pain or tightness. No significant cough. No sputum production. No hemoptysis. No chest pain or tightness. Review of Systems 2 Review of Systems: A total of 10 systems was reviewed and is negative other than as listed in the HPI Physical Exam 2 Physical Exam: GENERAL : No acute distress. Pleasant EYES: No icterus, gaze conjugate NOSE: No evidence of epistaxis MOUTH: No lesions or candidiasis NECK: Supple LUNGS: CTA B/L, no wheezes, rales or rhonchi. Good inspirational effort HEART: Regular, rate controlled ABDOMEN: Soft, NT, ND, BS Present EXTREMITIES: No LE edema, pedal pulses intact NEURO: Awake and alert. Results & Data Results & Data Vital Signs (Past 12 Hours) Vital Signs Temp Pulse Resp BP Pulse Ox O2 Del Method O2 Flow Rate 03/06/24 12:40 36.8 C 83 17 103/64 91 Nasal Cannula 3 03/06/24 12:04 72 19 93 Nasal Cannula 2 03/06/24 10:33 Nasal Cannula 2 03/06/24 07:25 72 18 91 Nasal Cannula 2 03/06/24 07:13 36.3 C L 74 18 99/65 L 92 Nasal Cannula 3 03/06/24 03:06 36.6 C 64 18 101/66 90 Nasal Cannula 3 03/06/24 01:42 79 15 94 Nasal Cannula 2 Laboratory Results 03/06/24 05:20 03/06/24 05:20 Diagnostic Findings Chest/Abdomen X-ray 03/03/24 22:48 Exam(s): XR ABDOMEN, 2 views EXAM: XR Abdomen, 2 Views and XR Chest, 1 View CLINICAL HISTORY: Reason for exam: sob/hypoxia, abdominal pain w/ coughing. TECHNIQUE: Frontal view of the chest, frontal view of the abdomen/pelvis and upright or decubitus view of the abdomen. COMPARISON: 06/12/2022. . FINDINGS: Lungs: There are extensive bilateral infiltrates.. Pleural space: There are possible small bilateral pleural effusions. No pneumothorax. Heart: Heart is top normal in size.. Intraperitoneal space: No free air. Gastrointestinal tract: There is air and stool noted in the colon. No significantly distended loops of small bowel are identified.. Bones/joints: There is a scoliosis in the spine.. IMPRESSION: There are extensive bilateral infiltrates with possible small bilateral pleural effusions Unremarkable bowel gas pattern. Electronically signed by: Allen Macario MD 03/04/24 01:14 AM Chest X-Ray 03/06/24 07:15 EXAM: XR chest 1V portable CLINICAL HISTORY: Acute hypoxia TECHNIQUE: An X-ray image of the chest was obtained in 1 view: AP projection. COMPARISON: 12/20/2020 FINDINGS: Pulmonary Parenchyma: Possible status post esophagectomy with gastric pull up, better seen on CT chest. Inhomogenous air space opacification in bilateral lung middle zones seen with mild interval progression of left mid zone opacification seen with persistent minimal left pleural effusion. Prominent reticular markings in right lung. Medial end of clavicle is not clearly identified on the left side with increased translucency in left lung apical zone, unchanged since 2020. Enlarged cardiac shadow with silhoutting seen in the left cardiac border and mediastinal widening, unchanged. Thoracic spine scoliosis with spondylotic changes. Soft tissues overlying the chest wall are unremarkable. IMPRESSION: 1. Possible status post esophagectomy with gastric pull up, better seen on CT chest. 2. Inhomogenous air space opacification in bilateral lung middle zones seen with mild interval progression of left mid zone opacification seen with persistent minimal left pleural effusion. These may represent infective or inflammatory disease process. Suggest further evaluation with CT chest. Increased since the prior study. 3. Prominent reticular markings in right lung with diffuse reticulonodular pattern, suggesting inflammatory disease process. Unchanged 4. Medial end of the clavicle is not clearly identified on the left side with increased translucency in left lung apical zone, unchanged since 2020. Electronically signed by Allison Jenkins 03-06-2024 08:21 AM PG Care Time/CCT Total # of Minutes Spent Total Time Spent with Patient: Total time spent is greater than 50% in coordination of care (as documented) at patient's floor/unit and/or counseling patient: 25 minutes Coding Level of Care Code 26686 SUB INP/OBS CARE 25MIN Diagnoses Tracheobronchitis J40 Acute respiratory failure with hypoxia J96.01 Aspiration pneumonia J69.0 Aspiration pneumonia type: unspecified Laterality: bilateral Lung location: lower lobe of lung Elevated troponin R79.89 GERD with stricture K21.9; K22.2 Pain of upper abdomen R10.84 Abdominal location: generalized Time Spent (min) 25 (3) Aspiration pneumonia Aspiration pneumonia type: unspecified Laterality: bilateral Lung location: lower lobe of lung Qualified Code(s): J69.0 - Pneumonitis due to inhalation of food and vomit (6) Abdominal pain Abdominal location: generalized Qualified Code(s): R10.84 - Generalized abdominal pain
--- NOTE | 2024-03-06 15:49 | Pulmonology Progress Note ---
Date of Service March 06, 2024 Assessment & Plan (1) Tracheobronchitis: (2) Acute viral bronchiolitis: (3) Acute respiratory failure with hypoxia: Plan 38-year-old male with a complex history of trisomy 21, esophagectomy with colonic interposition surgery presenting to the hospital due to acute viral bronchiolitis and hypoxemic respiratory failure. I do suspect an element of potential bacterial tracheobronchitis. Recommend a 5 to 7-day course of antibiotics. Continue to wean oxygen as able. Continue aspiration precautions given his history of complex gastrointestinal disorder. Continue with Blanka as needed. Sputum culture with moderate normal annamaria possibly sterilized due to antibiotic use. Patient's mother had questions about travel next week. I indicated to her that if he is still on oxygen by 03/07/2024, then they should likely cancel her trip for next week to [place]. No further recommendations at this time. Please call with questions. Discussed with hospitalist Dev MCCALL. Admission and Anticipated Discharge Date Admission Date: March 04, 2024 Subjective Cough substantially improved. Patient sitting up and watching TV. Remains on low-flow nasal cannula. No fevers or chills. Review of Systems Review of Systems: All systems reviewed & are unremarkable except as noted in HPI & below Physical Exam Physical Exam: Constitutional: Patient appears to be of their stated age. Patient is in no apparent distress. Patient is well-developed. Eyes: Pupils are equal round and reactive to light. Conjunctivae are normal. Anicteric sclera. Ears nose, mouth and throat: No perioral cyanosis. Neck: Trachea is midline. Visual inspection is normal. Respiratory: Mild rhonchi noted on the anterior chest. No tachypnea or increased work of breathing. Cardiovascular: Regular rate and rhythm. No murmurs. No edema. Gastrointestinal: Normal bowel sounds, soft, nontender and nondistended. No hepatosplenomegaly noted. Musculoskeletal: No cyanosis. Patient is able to move all extremities. Strength is 5 out of 5 in the upper and lower extremities. Skin: No rashes, warm dry and intact. Neurologic: No obvious focal neurological deficits seen. Psychiatric: Alert and oriented x3 with a euthymic affect. Skin: no rashes, warm and dry Lymphatic: no cervical or axillary lymphadenopathy Results & Data Results & Data Vital Signs (Past 12 Hours) Vital Signs Temp Pulse Resp BP Pulse Ox O2 Del Method O2 Flow Rate 12/08/24 12:40 36.8 C 83 17 103/64 91 Nasal Cannula 3 03/06/24 12:04 72 19 93 Nasal Cannula 2 03/06/24 10:33 Nasal Cannula 2 03/06/24 07:25 72 18 91 Nasal Cannula 2 03/06/24 07:13 36.3 C L 74 18 99/65 L 92 Nasal Cannula 3 PG Care Time/CCT Total # of Minutes Spent Total Time Spent with Patient: Total time spent is greater than 50% in coordination of care (as documented) at patient's floor/unit and/or counseling patient: Coding Level of Care Code 36651 SUB INP/OBS CARE 2MIN Diagnoses Tracheobronchitis J40 Acute viral bronchiolitis J21.8; B97.89 Acute respiratory failure with hypoxia J96.01
[2024-03-07] MEDS: ALBUT/IPRATROP 3MG/0.5MG NEB 3 ML VIAL NEB PRN (09:01)
--- NOTE | 2024-03-07 12:11 | Hospitalist Progress Note ---
Date of Service March 07, 2024 Assessment & Plan (1) Tracheobronchitis: Plan: - likely multifactorial in the setting of rhino/enterovirus and concern for possible aspiration -Patient seen by Dr. Campbell in consultation with pulmonary. He agrees with potential bacterial tracheobronchitis. Continue p.o. cefdinir and azithromycin. - SIRS + with tachycardia and tachypneic-> s/p 1500mL fluid bolus, which covers his sepsis bolus 30nl/kg - creatine= 1.27 with baseline of 1, so perhaps a little dehydrated - lactate/procal both negative and no leukocytosis - blood cultures are pending - started on Zosyn-> given concern for aspiration plan to continue. Sputum culture is negative. Continue with oral antibiotics as above - aspiration precautions, speech saw during admission 2020 and no specific recommendations - was also seen by pulm/GI during 2020 admission - s/p 125mg methylprednisone in ED-> discontinue steroids as patient has no bronchospasm and is doing well with titration of supplemental oxygen - DuoNeb q6 changed to as needed due to agitation and no evidence of bronchospasm - wean oxygen as tolerated. Currently at 2 L/min via nasal cannula -Appreciate input from pulm: continue oral antibiotics. (2) Acute respiratory failure with hypoxia: Plan: Secondary to acute viral illness. Patient is doing well and titrating down supplemental oxygen via nasal cannula Repeat chest x-ray today with improvement but persistent findings Continue supportive care Family aware that this could take 6 to 8 weeks or longer to clear completely (3) Aspiration pneumonia: Plan: Not clear the patient has aspiration with this event. Mother reports that he has history of aspiration. Continue aspiration precautions Continue to treat tracheobronchitis as above No indication for workup at this time. Will reevaluate tomorrow (4) Elevated troponin: Plan: No chest pain or EKG changes Most likely demand ischemia secondary to acute respiratory illness with hypoxia (5) GERD with stricture: Plan: Patient denies any midepigastric or chest pain Eating well Unremarkable bowel gas pattern on abdominal x-ray Continue supportive care (6) Abdominal pain: Plan: Resolved Nausea and vomiting is resolved. No further abdominal pain No acute etiology on abdominal x-ray Plan Continue to monitor on telemetry due to hypoxia. VTE prophylaxis with Lovenox Patient ambulating well in hallway. Continue to encourage Admission and Anticipated Discharge Date Admission Date: March 04, 2024 Subjective Patient reports no new symptoms. Physical Exam Physical Exam: GENERAL : No acute distress. Pleasant On 2 liters nasal cannula. Not using accessory muscles to breath. Results & Data Results & Data Vital Signs (Past 12 Hours) Vital Signs Temp Pulse Resp BP BP Pulse Ox O2 Del Method 03/07/24 10:21 Nasal Cannula 03/07/24 09:03 88 20 93 Nasal Cannula 03/07/24 08:09 36.6 C 85 20 112/80 93 Nasal Cannula 03/07/24 01:27 36.8 C 65 101/68 94 Nasal Cannula O2 Flow Rate 03/07/24 10:21 2 03/07/24 09:03 2 03/07/24 08:09 2 03/07/24 01:27 2 PG Care Time/CCT Total # of Minutes Spent Total Time Spent with Patient: Total time spent is greater than 50% in coordination of care (as documented) at patient's floor/unit and/or counseling patient: Coding Level of Care Code 77910 SUB INP/OBS CARE 2/35MIN Diagnoses Tracheobronchitis J40 Acute respiratory failure with hypoxia J96.01 Aspiration pneumonia J69.0 Aspiration pneumonia type: unspecified Laterality: bilateral Lung location: lower lobe of lung Elevated troponin R79.89 GERD with stricture K21.9; K22.2 Pain of upper abdomen R10.84 Abdominal location: generalized (3) Aspiration pneumonia Aspiration pneumonia type: unspecified Laterality: bilateral Lung location: lower lobe of lung Qualified Code(s): J69.0 - Pneumonitis due to inhalation of food and vomit (6) Abdominal pain Abdominal location: generalized Qualified Code(s): R10.84 - Generalized abdominal pain
--- NOTE | 2024-03-07 12:46 | Pulmonology Progress Note ---
Date of Service March 07, 2024 Assessment & Plan (1) Tracheobronchitis: (2) Acute viral bronchiolitis: (3) Acute respiratory failure with hypoxia: Plan 38-year-old male with a complex history of trisomy 21, esophagectomy with colonic interposition surgery presenting to the hospital due to acute viral bronchiolitis and hypoxemic respiratory failure. Recommend a 5 to 7-day course of antibiotics. Continue to wean oxygen as able to maintain sats above 88%. I placed the patient back in 1 L of supplemental oxygen after walking with him in his room due to desaturations below 88%. Continue aspiration precautions given his history of complex gastrointestinal disorder. Continue with Blanka as needed. Sputum culture with moderate normal annamaria possibly sterilized due to antibiotic use. Patient's mother had questions about travel next week. At this point in time, unfortunately, I would discourage airline travel for a vacation to [place] until he is fully recovered from his acute illness. No further recommendations at this time. Please call with questions. Pulmonary to sign off. Admission and Anticipated Discharge Date Admission Date: March 04, 2024 Subjective Patient is able to walk the hallways today. He denies any significant shortness of breath. I did have him walk in his room as well off of oxygen and unfortunately he did desaturate to 85%. He does have an occasional cough with productive sputum. No hemoptysis. Review of Systems Review of Systems: All systems reviewed & are unremarkable except as noted in HPI & below Physical Exam Physical Exam: Constitutional: Patient appears to be of their stated age. Patient is in no apparent distress. Patient is well-developed. Eyes: Pupils are equal round and reactive to light. Conjunctivae are normal. Anicteric sclera. Ears nose, mouth and throat: No perioral cyanosis. Neck: Trachea is midline. Visual inspection is normal. Respiratory: Mild rhonchi noted on the anterior chest. No tachypnea or increased work of breathing. Cardiovascular: Regular rate and rhythm. No murmurs. No edema. Gastrointestinal: Normal bowel sounds, soft, nontender and nondistended. No hepatosplenomegaly noted. Musculoskeletal: No cyanosis. Patient is able to move all extremities. Strength is 5 out of 5 in the upper and lower extremities. Skin: No rashes, warm dry and intact. Neurologic: No obvious focal neurological deficits seen. Psychiatric: Alert and oriented x3 with a euthymic affect. Skin: no rashes, warm and dry Lymphatic: no cervical or axillary lymphadenopathy Results & Data Results & Data Vital Signs (Past 12 Hours) Vital Signs Temp Pulse Resp BP BP Pulse Ox O2 Del Method 03/07/24 12:13 36.6 C 98 H 18 106/56 L 94 Nasal Cannula 03/07/24 10:21 Nasal Cannula 03/07/24 09:03 88 20 93 Nasal Cannula 03/07/24 08:09 36.6 C 85 20 112/80 93 Nasal Cannula 03/07/24 01:27 36.8 C 65 101/68 94 Nasal Cannula O2 Flow Rate 03/07/24 12:13 03/07/24 10:21 2 03/07/24 09:03 2 03/07/24 08:09 2 03/07/24 01:27 2 PG Care Time/CCT Total # of Minutes Spent Total Time Spent with Patient: Total time spent is greater than 50% in coordination of care (as documented) at patient's floor/unit and/or counseling patient: Coding Level of Care Code 90915 SUB INP/OBS CARE 235MIN Diagnoses Tracheobronchitis J40 Acute viral bronchiolitis J21.8; B97.89 Acute respiratory failure with hypoxia J96.01
[2024-03-08 06:25] LABS: Hematocrit (blood only) 44.9 % (42.0-52.0); Hemoglobin 14.5 g/dl (14.0-18.0); Mean Corpuscular Hemoglobin 28.4 pg (25.0-34.0); Mean Corpuscular Hgb Conc 32.3 g/dL (32.0-36.0); Mean Corpuscular Volume 87.9 fL (80.0-100.0); Mean Platelet Volume 9.5 fL (9.4-12.4); Platelet Count 361 K/uL (130-400); RDW Coefficient of Variation 18.1 % (11.5-14.5); RDW Standard Deviation 57.7 fL (36.4-46.3); Red Blood Count 5.11 M/uL (4.70-6.10); White Blood Count 5.82 K/ul (4.8-10.8)
[2024-03-08 06:40] LABS: BUN Creatinine Ratio 23.7 (10-20); Creatinine Clr Calc Pharmacy 64.8 ml/min; Potassium 4.2 mmol/L (3.5-5.1)
--- NOTE | 2024-03-08 22:52 | Hospitalist Progress Note ---
Date of Service March 08, 2024 Assessment & Plan (1) Tracheobronchitis: Plan: - likely multifactorial in the setting of rhino/enterovirus and concern for possible aspiration -Patient seen by Dr. Campbell in consultation with pulmonary. He agrees with potential bacterial tracheobronchitis. Continue p.o. cefdinir and azithromycin. - SIRS + with tachycardia and tachypneic-> s/p 1500mL fluid bolus, which covers his sepsis bolus 30nl/kg - creatine= 1.27 with baseline of 1, so perhaps a little dehydrated - lactate/procal both negative and no leukocytosis - blood cultures are pending - started on Zosyn-> given concern for aspiration plan to continue. Sputum culture is negative. Continue with oral antibiotics as above - aspiration precautions, speech saw during admission 2020 and no specific recommendations - was also seen by pulm/GI during 2020 admission - s/p 125mg methylprednisone in ED-> discontinue steroids as patient has no bronchospasm and is doing well with titration of supplemental oxygen - DuoNeb q6 changed to as needed due to agitation and no evidence of bronchospasm - wean oxygen as tolerated. Currently at 2 L/min via nasal cannula -Appreciate input from pulm: current;y on rocephin and azithromycin will transition to oral antibiotics at discharge. will order 2 step and try to discharge in AM (2) Acute respiratory failure with hypoxia: Plan: Secondary to acute viral illness. Patient is doing well and titrating down supplemental oxygen via nasal cannula Repeat chest x-ray today with improvement but persistent findings Continue supportive care Family aware that this could take 6 to 8 weeks or longer to clear completely (3) Aspiration pneumonia: Plan: Not clear the patient has aspiration with this event. Mother reports that he has history of aspiration. Continue aspiration precautions Continue to treat tracheobronchitis as above No indication for workup at this time. Will reevaluate tomorrow (4) Elevated troponin: Plan: No chest pain or EKG changes Most likely demand ischemia secondary to acute respiratory illness with hypoxia (5) GERD with stricture: Plan: Patient denies any midepigastric or chest pain Eating well Unremarkable bowel gas pattern on abdominal x-ray Continue supportive care (6) Abdominal pain: Plan: Resolved Nausea and vomiting is resolved. No further abdominal pain No acute etiology on abdominal x-ray Plan Continue to monitor on telemetry due to hypoxia. VTE prophylaxis with Lovenox Patient ambulating well in hallway. Continue to encourage Admission and Anticipated Discharge Date Admission Date: March 04, 2024 Subjective 38 yo male reports no new symptoms. Review of Systems Review of Systems: All systems reviewed & are unremarkable except as noted in HPI & below Physical Exam Physical Exam: GENERAL : No acute distress. Pleasant On 2 liters nasal cannula. Not using accessory muscles to breath. Results & Data Results & Data Vital Signs (Past 12 Hours) Vital Signs Temp Pulse Resp BP Pulse Ox O2 Del Method O2 Flow Rate 03/08/24 20:03 36.7 C 68 19 106/73 95 Nasal Cannula 1 03/08/24 19:50 Nasal Cannula 1 03/08/24 17:05 Nasal Cannula 1 03/08/24 12:31 36.6 C 85 20 105/61 95 Nasal Cannula 1 PG Care Time/CCT Total # of Minutes Spent Total Time Spent with Patient: Total time spent is greater than 50% in coordination of care (as documented) at patient's floor/unit and/or counseling patient: Coding Level of Care Code 70085 SUB INP/OBS CARE 2/35MIN Diagnoses Tracheobronchitis J40 Acute respiratory failure with hypoxia J96.01 Aspiration pneumonia J69.0 Aspiration pneumonia type: unspecified Laterality: bilateral Lung location: lower lobe of lung Elevated troponin R79.89 GERD with stricture K21.9; K22.2 Pain of upper abdomen R10.84 Abdominal location: generalized (3) Aspiration pneumonia Aspiration pneumonia type: unspecified Laterality: bilateral Lung location: lower lobe of lung Qualified Code(s): J69.0 - Pneumonitis due to inhalation of food and vomit (6) Abdominal pain Abdominal location: generalized Qualified Code(s): R10.84 - Generalized abdominal pain
[2024-03-09 07:06] VITALS: BP 93/60; TEMP 98.1
[2024-03-09 09:11] VITALS: PULSE 80; RESP 15; O2SAT 85
--- NOTE | 2024-03-09 09:40 | Discharge Summary ---
Discharge Summary Date of Service March 09, 2024 Principal Dx & Hospital Course #1 = Principal Diagnosis (1) Tracheobronchitis: - likely multifactorial in the setting of rhino/enterovirus and concern for possible aspiration -Patient seen by Dr. Campbell in consultation with pulmonary. He agrees with potential bacterial tracheobronchitis. Continue p.o. cefdinir and azithromycin. - SIRS + with tachycardia and tachypneic-> s/p 1500mL fluid bolus, which covers his sepsis bolus 30nl/kg - creatine= 1.27 with baseline of 1, so perhaps a little dehydrated - lactate/procal both negative and no leukocytosis - blood cultures are pending - started on Zosyn-> given concern for aspiration plan to continue. Sputum culture is negative. Continue with oral antibiotics as above - aspiration precautions, speech saw during admission 2020 and no specific recommendations - was also seen by pulm/GI during 2020 admission - s/p 125mg methylprednisone in ED-> discontinue steroids as patient has no bronchospasm and is doing well with titration of supplemental oxygen - DuoNeb q6 changed to as needed due to agitation and no evidence of bronchospasm - wean oxygen as tolerated. Currently at 2 L/min via nasal cannula -Appreciate input from pulm: current;y on rocephin and azithromycin will transition to oral antibiotics at discharge. will order 2 step and try to discharge in AM (2) Acute respiratory failure with hypoxia: Secondary to acute viral illness. Patient is doing well and titrating down supplemental oxygen via nasal cannula Repeat chest x-ray today with improvement but persistent findings Continue supportive care Family aware that this could take 6 to 8 weeks or longer to clear completely (3) Aspiration pneumonia: Not clear the patient has aspiration with this event. Mother reports that he has history of aspiration. Continue aspiration precautions Continue to treat tracheobronchitis as above No indication for workup at this time. Will reevaluate tomorrow (4) Elevated troponin: No chest pain or EKG changes Most likely demand ischemia secondary to acute respiratory illness with hypoxia (5) GERD with stricture: Patient denies any midepigastric or chest pain Eating well Unremarkable bowel gas pattern on abdominal x-ray Continue supportive care (6) Abdominal pain: Resolved Nausea and vomiting is resolved. No further abdominal pain No acute etiology on abdominal x-ray Plan Continue to monitor on telemetry due to hypoxia. VTE prophylaxis with Lovenox Patient ambulating well in hallway. Continue to encourage Admission HPI Per Admitting Provider 38 year old male with a past medical history of esophageal stricture, trisomy 21, allergic rhinitis, gastritis and prior esophageal reconstruction presenting with cough/congestion x 2 days, found to be hypoxic to the 60s upon presentation. Notes some abdominal pain intermittently; denies nausea/vomiting. Had a BM today, that he states was normal- nonbloody, no diarrhea. Denies chest/pleuritic pain. Does have a history of aspiration PNA-> was admitted in 2020, very similar presentation then. No complaints at present. ED Course Significant for: Hypoxic with sPO2 upon arrival-> placed on 25L High Flow with spO2 up to 90s. Tachycardic to 150s-> s/p 1.5L NSS and now down to 70s. CBC/BMP unremarkable. Procal= 0.08. Trop= 68-> repeat pending. Lactate= 1.6. EKG with NSR, no acute ischemic changes. Resp biofire + for rhino/enterovirus. CXR which appears to show B/L airspace opacities- formal read pending. KUB with pos-operative changes-> formal read pending. Discharge Exam GENERAL : No acute distress. Pleasant On 2 liters nasal cannula. Not using accessory muscles to breath. Discharge Plan Discharge Items Patient Disposition: Home - Self-Care Reason For Visit: ACUTE HYPOXIC RESP FAILURE Discharge Diagnosis: acute respiratory failure Activity: Resume your previous activity Non-emergency contact: Primary Care Provider Call non-emergency contact if: you have any medication questions Follow-up/Referrals: Precious Araujo DO [Primary Care Provider] - Diet: Carb Consistent or DM2 and Gluten Free Addtl Attending Provider Instructions: Continue 2 days of antibiotics starting tonight. Over time , I anticipate you will no lnger require oxygen. It may take some time though as you recover from this infection. Recommend followup to PCP. At this point in time, unfortunately, I would discourage airline travel for a vacation to [place] until he is fully recovered from his acute illness. Pending Studies at Discharge: No Stand-Alone Forms: My [employer], Smoking Cessation Medications and DC Order Prescriptions: New cefdinir 300 mg capsule 300 mg PO BID Qty: 4 0RF Rx Instructions: first dose tonight Continued fexofenadine [Angelica Allergy] 180 mg tablet 180 mg PO DAILY multivitamin Tablet 1 tab PO DAILY Combivent Respimat 20-100 mcg/actuation mist 1 puff inhalation BID Rx Instructions: inhale 1 puff by mouth and INTO THE LUNGS twice a day Discharge Orders: Discharge Order (Routine); Ordered 03/09/24 Ordered By: Madi Hoffman Admission Data Admit Date/Time: 03/04/24 00:02 Attending Provider: Madi Hoffman Admit Provider: Karolina Daniel Primary Care Provider: Precious Araujo Other Providers: Charu Mendoza; Ar Campbell Hospital Stay Data Consultations 03/03/24 23:44 ED Decision to Admit Stat 03/04/24 11:20 Consult Pulmonology Routine Pending Results Patient Have Any Pending Studies at Discharge: No Discharge Instructions Given to Patient (Per Discharging Provider) Continue 2 days of antibiotics starting tonight. Over time , I anticipate you will no lnger require oxygen. It may take some time though as you recover from this infection. Recommend followup to PCP. At this point in time, unfortunately, I would discourage airline travel for a vacation to [place] until he is fully recovered from his acute illness. Coding Diagnoses Tracheobronchitis J40 Acute respiratory failure with hypoxia J96.01 Aspiration pneumonia J69.0 Aspiration pneumonia type: unspecified Laterality: bilateral Lung location: lower lobe of lung Elevated troponin R79.89 GERD with stricture K21.9; K22.2 Pain of upper abdomen R10.84 Abdominal location: generalized
== END 2024-03-09 10:48 | disposition home or self-care (01) | DRG 189 ==
LOC: ED 22:31 → 4W 03-04 00:02 → SUATTDRO 03-04 00:02 → 4W 03-04 01:10

== ENCOUNTER 2024-07-08 10:39 | Inpatient (IN) ==
[2024-07-08 11:21] LABS: Basophils # (auto) 0.08 K/uL (0.00-0.20); Basophils % (auto) 0.5 %; Eosinophils # (auto) 0.01 K/uL (0.00-0.50); Eosinophils % (auto) 0.1 %; Hematocrit (blood only) 43.1 % (42.0-52.0); Hemoglobin 14.1 g/dl (14.0-18.0); Immature Granulocytes # (auto) 0.08 K/uL (0.01-0.20); Immature Granulocytes % (auto) 0.5 %; Lymphocytes # (auto) 1.06 K/uL (1.20-3.40); Lymphocytes % (auto) 7.1 %; Mean Corpuscular Hemoglobin 28.1 pg (25.0-34.0); Mean Corpuscular Hgb Conc 32.7 g/dL (32.0-36.0); Mean Corpuscular Volume 85.9 fL (80.0-100.0); Mean Platelet Volume 9.6 fL (9.4-12.4); Monocytes # (auto) 0.83 K/uL (0.11-0.59); Monocytes % (auto) 5.6 %; Neutrophils # (auto) 12.86 K/uL (1.40-6.50); Neutrophils % (auto) 86.2 %; Platelet Count 344 K/uL (130-400); RDW Coefficient of Variation 14.4 % (11.5-14.5); RDW Standard Deviation 44.8 fL (36.4-46.3); Red Blood Count 5.02 M/uL (4.70-6.10); White Blood Count 14.92 K/ul (4.8-10.8)
--- NOTE | 2024-07-08 11:37 | Electrocardiogram Report ---
Test Reason : Blood Pressure : */* mmHG Vent. Rate : 79 BPM Atrial Rate : 79 BPM P-R Int : 110 ms QRS Dur : 88 ms QT Int : 364 ms P-R-T Axes : 51 76 59 degrees QTcB Int : 417 ms Sinus rhythm with short KS Otherwise normal ECG When compared with ECG of 03-Mar-2024 23:11, No significant change was found Confirmed by Dereje Ferguson ([id number]) on 07/08/2024 11:37:26 AM Referred By: Confirmed By: Dereje Ferguson
[2024-07-08 11:44] LABS: Alanine Aminotransferase 15 U/L (7-52); Albumin Globulin Ratio 1.1 (0.9-2); Albumin Level 3.9 gm/dl (3.4-5.0); Alkaline Phosphatase 96 U/L (34-104); Anion Gap 5 (3-11); Aspartate Aminotransferase 23 U/L (13-39); Bilirubin,Total 0.4 mg/dl (0.2-1.0); Blood Urea Nitrogen 19 mg/dl (6-23); Calcium 8.7 mg/dl (8.6-10.3); Carbon Dioxide 30 mmol/L (21-32); Chloride 103 mmol/L (98-107); Globulin 3.4 gm/dl (2.5-4.0); Glucose 111 mg/dl (70-99(Fasting)); Potassium 4.3 mmol/L (3.5-5.1); Sodium 138 mmol/L (136-145); Total Protein 7.3 gm/dl (6.0-8.3)
--- NOTE | 2024-07-08 11:44 | XRay Report ---
XR chest 1V portable CLINICAL HISTORY: Dyspnea COMPARISON STUDY: 03/06/2024 FINDINGS: There is stable cardiomegaly with mild pulmonary vascular congestion. Stable large left josé miguel phragmatic hernia. Stable patchy opacity at the left mid and lower lung and right mid lung. Stable bl unting of the left costophrenic angle. No pneumothorax. IMPRESSION: Stable exam. ACT 112: Negative or not required by law. Electronically signed by: Bladimir Davis M.D. 07/08/2024 11:43 AM
--- NOTE | 2024-07-08 11:55 | Emergency Department Note ---
Impression & Plan Aspiration pneumonia, Respiratory failure, Acute respiratory failure with hypoxia ED Provider Note NAME: MARCO PRO AGE: 39 SEX: M : 1985 ARRIVES VIA: Walk-In INFORMANT: Patient, ED PROVIDER(S): Kajal Dai MD CHIEF COMPLAINT: Low oxygen HPI: This is a 39-year-old male present for low oxygen levels for patient with his father who breath history of patient has history of autism and aspiration. Over the past 2-3 nights, patient has had coughing specifically at night. father is concerned with possible aspiration. No actual emesis. Otherwise has had some diffuse abdominal pain at night which is since resolved. Patient went to PCP where ox level was deemed to be low and sent here. ROS: See above HPI for pertinent positives & negatives. A total of 10 systems reviewed and were otherwise negative. PAST MEDICAL HISTORY: See Below PAST SURGICAL HISTORY: See Below FAMILY HISTORY: See Below SOCIAL HISTORY: See Below HOME MEDICATIONS: See Below ALLERGIES: See Below VITALS: See Below PHYSICAL EXAMINATION: General: resting comfortably in no acute distress Head: Normocephalic and atraumatic Eyes: Normal inspection, extraocular muscles intact Ear, nose, throat: Normal external exam Neck: Normal range of motion Respiratory: Rhonchi in the left lung goyal Cardiovascular: Regular rate/rhythm, no murmur GI: soft, nontender, no guarding or rebound Extremities: nontender, moves all extremities Neuro: The patient awake and alert, appropriately conversive, no focal deficits, symmetric faces Skin: Warm, dry, and intact MEDICAL DECISION MAKING: This is a 39-year-old male presents for low oxygen levels. Patient has oxygen level at around 78% on room air. He has rhonchi. Consider aspiration pneumonitis versus pneumonia versus upper respiratory infection. -Chest x-ray reveals a large left lung opacity in the mid lung - patient vital signs initially show some slight hypotension, 80s over 50s.. This is improved on reevaluation the 100s systolic. -Patient well-appearing at baseline without tachycardia. Temperature is 37.6. -Leukocytosis at 14.92 -Will treat with ceftriaxone azithromycin at this time -Patient required admission, care discussed with Dr. Dinh for admission Differential diagnosis: Aspiration pneumonia, pneumonitis, upper respiratory infection Independent History obtained from: Father Diagnostics interpreted by me: ECG: ECG independently interpreted by me with sinus rhythm with short NE, ventricular rate 79 normal axis, normal QRS, normal QTc, no ST segment elevations consistent with STEMI criteria Cardiac Monitoring: An order was placed for continuous cardiac monitoring. The monitor shows a rate of 69 with sinus rhythm. 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) Aspiration pneumonia (Acute) History of esophageal surgery reconstructed esophagus GERD with stricture Multifocal pneumonia (Acute) Acute respiratory failure with hypoxia (Acute) Respiratory failure (Acute) Allergic rhinitis Dehydration (Acute) Abdominal pain (Acute) Medical History Bronchostenosis DVT prophylaxis Hypoxia Sepsis Pneumonia Esophageal stricture reconstructed esophagus Aspiration into airway Trisomy 21 Social History Smoking Status: Never smoker Second Hand Exposure: No; Do You Dip or Chew Tobacco: No; Tobacco Cessation Education Requested by Patient: No Hx Alcohol Use: No Hx Substance Use: No Preferred Language: Lithuanian Communication Ability: Effective Communication Ability Comment: Father at bedside Share Holder Required: No Beliefs That Will Affect Care: None marital status: Single Current Living Situation: Parent and Family Other Information That Helps Us Care for You: No Feels Safe at Home: Yes Safety Concerns: Feels Safe At This Time Assistive Devices: Glasses Allergies Allergies Allergy/AdvReac Type Severity Reaction Status Date / Time gluten Allergy Severe Abdominal Verified 04/08/21 10:45 Pain lamotrigine Allergy Unknown Verified 11/28/21 16:23 Sulfa (Sulfonamide Allergy Unknown Verified 11/28/21 16:23 Antibiotics) Home Meds Home Medications Medication Instructions Recorded Confirmed fexofenadine 180 mg tablet 180 mg PO DAILY PRN Other 12/13/20 07/08/24 (Angelica Allergy) multivitamin 1 tab PO DAILY 12/20/20 07/08/24 ipratropium 20 mcg-albuterol 100 1 puff inhalation BID 03/03/24 07/08/24 mcg/actuation mist for inhalation (Combivent Respimat) Results & Data (ED) Vital Signs Vital Signs - 24 hr 07/08/24 10:42 07/08/24 11:14 07/08/24 11:24 Temperature 37.6 C H Temperature Source Oral Pulse Rate 86 83 Respiratory Rate 22 Respiratory Effort / Characteristics Spontaneous Short of Breath Blood Pressure 87/59 L Blood Pressure Mean 68 Pulse Oximetry 78 L 93 Oxygen Delivery Method Room Air Nasal Cannula Oxygen Flow Rate 4 Sepsis Recent Fever Within 48 Hours No Sepsis New/Unexplained Change in Mental Status N/A Sepsis Action Taken by Nursing Physician Notified Laboratory Data 07/09/24 08:27 07/09/24 08:27 Lab Results 07/08/24 07/08/24 Range/Units 11:05 12:10 WBC 14.92 H (4.8-10.8) K/ul RBC 5.02 (4.70-6.10) M/uL Hgb 14.1 (14.0-18.0) g/dl Hct 43.1 (42.0-52.0) % MCV 85.9 (80.0-100.0) fL MCH 28.1 (25.0-34.0) pg MCHC 32.7 (32.0-36.0) g/dL RDW Std Deviation 44.8 (36.4-46.3) fL RDW Coeff of Jorge 14.4 (11.5-14.5) % Plt Count 344 (130-400) K/uL MPV 9.6 (9.4-12.4) fL Immature Gran % (Auto) 0.5 % Neut % (Auto) 86.2 % Lymph % (Auto) 7.1 % Craven % (Auto) 5.6 % Eos % (Auto) 0.1 % Baso % (Auto) 0.5 % Neut # (Auto) 12.86 H (1.40-6.50) K/uL Lymph # (Auto) 1.06 L (1.20-3.40) K/uL Craven # (Auto) 0.83 H (0.11-0.59) K/uL Eos # (Auto) 0.01 (0.00-0.50) K/uL Baso # (Auto) 0.08 (0.00-0.20) K/uL Immature Gran # (Auto) 0.08 (0.01-0.20) K/uL Sodium 138 (136-145) mmol/L Potassium 4.3 (3.5-5.1) mmol/L Chloride 103 (98-107) mmol/L Carbon Dioxide 30 (21-32) mmol/L Anion Gap 5 (3-11) BUN 19 (6-23) mg/dl Creatinine 1.00 (0.6-1.4) mg/dl Est Cr Clr Drug Dosing Not Reportable eGFR 98.18 BUN/Creatinine Ratio 19.0 (10-20) Glucose 111 H (70-99(Fasting)) mg/dl Calcium 8.7 (8.6-10.3) mg/dl Total Bilirubin 0.4 (0.2-1.0) mg/dl AST 23 (13-39) U/L ALT 15 (7-52) U/L Alkaline Phosphatase 96 (34-104) U/L Total Protein 7.3 (6.0-8.3) gm/dl Albumin 3.9 (3.4-5.0) gm/dl Globulin 3.4 (2.5-4.0) gm/dl Albumin/Globulin Ratio 1.1 (0.9-2) Procalcitonin 0.91 H (0-0.5) ng/ml Adenovirus (PCR) Not Detected (NotDetected) B. pertussis DNA (PCR) Not Detected (NotDetected) B.parapertussis DNA PCR Not Detected (NotDetected) C. pneumoniae DNA (PCR) Not Detected (NotDetected) Coronavirus OC43 (PCR) Not Detected (NotDetected) Coronavirus HKU1 (PCR) Not Detected (NotDetected) Coronavirus 229E (PCR) Not Detected (NotDetected) SARS-CoV-2 (PCR) Not Detected (NotDetected) Coronavirus NL63 (PCR) Not Detected (NotDetected) Human Metapneumovir PCR Not Detected (NotDetected) Influenza Type A (PCR) Not Detected (NotDetected) Influenza Type B (PCR) Not Detected (NotDetected) M. pneumoniae (PCR) Not Detected (NotDetected) Parainfluenza 1 (PCR) Not Detected (NotDetected) Parainfluenza 2 (PCR) Not Detected (NotDetected) Parainfluenza 3 (PCR) Not Detected (NotDetected) Parainfluenza 4 (PCR) Not Detected (NotDetected) RSV (PCR) Not Detected (NotDetected) Entero/Rhino (PCR) Not Detected (NotDetected) Administered Medications Albuterol (Albuterol Hfa 8 Gm Inhaler (Combivent Respimat P&T Subs)) 1 puffs INH BIDR [facility]; Protocol Stop: 08/07/24 18:59 Last Admin: 07/09/24 07:39 Dose: 1 puffs Documented By: Admin: 07/08/24 19:45 Dose: 1 puffs Documented By: TYLER Azithromycin (Azithromycin 250 Mg Tab) 500 mg PO QAM [facility] Stop: 07/11/24 08:59 Last Admin: 07/09/24 09:40 Dose: 500 mg Documented By: KRAIG Benzonatate (Benzonatate 100 Mg Capsule) 100 mg PO TID [facility] Stop: 08/07/24 16:14 Last Admin: 07/09/24 14:33 Dose: 100 mg Documented By: Admin: 07/09/24 09:40 Dose: 100 mg Documented By: Admin: 07/08/24 21:09 Dose: 100 mg Documented By: Admin: 07/08/24 17:09 Dose: 100 mg Documented By: KRAIG Ampicillin Sodium/Sulbactam Sodium (Unasyn) 3,000 mg in 100 mls @ 200 mls/hr IV Q6H [facility] Stop: 07/13/24 15:29 Last Infusion: 07/09/24 15:03 Dose: Infused Documented By: Admin: 07/09/24 14:33 Dose: 200 mls/hr Documented By: Infusion: 07/09/24 10:40 Dose: Infused Documented By: Admin: 07/09/24 09:40 Dose: 200 mls/hr Documented By: Infusion: 07/09/24 04:45 Dose: Infused Documented By: Admin: 07/09/24 02:41 Dose: 200 mls/hr Documented By: Infusion: 07/08/24 21:57 Dose: Infused Documented By: Admin: 07/08/24 21:09 Dose: 200 mls/hr Documented By: Infusion: 07/08/24 16:17 Dose: Infused Documented By: Admin: 07/08/24 15:44 Dose: 200 mls/hr Documented By: KRAIG Ipratropium Veteran (Ipratropium Hfa Inhaler (Combivent Respimat P&T Subs)) 1 puffs INH BIDR [facility]; Protocol Stop: 08/07/24 18:59 Last Admin: 07/09/24 07:39 Dose: 1 puffs Documented By: Admin: 07/08/24 19:45 Dose: 1 puffs Documented By: TYLER Discontinued Medications Sodium Chloride (Nss) 1,000 mls @ 999 mls/hr IV .Q1H1M ONE Stop: 07/08/24 12:15 Last Infusion: 07/08/24 14:13 Dose: Infused Documented By: Admin: 07/08/24 12:35 Dose: 999 mls/hr Documented By: ALFREDO Ceftriaxone Sodium (Rocephin) 2,000 mg in 50 mls @ 100 mls/hr IV Q24H [facility] Stop: 07/10/24 11:44 Last Infusion: 07/08/24 13:08 Dose: Infused Documented By: Admin: 07/08/24 12:37 Dose: 100 mls/hr Documented By: ALFREDO Azithromycin (Zithromax) 500 mg in 255 mls @ 127.5 mls/hr IV NOW ONE Stop: 07/08/24 13:39 Last Infusion: 07/08/24 15:13 Dose: Infused Documented By: Admin: 07/08/24 12:54 Dose: 127.5 mls/hr Documented By: ALFREDO Imaging Data Radiologist's Impression: Chest X-Ray 07/08/24 10:52 XR chest 1V portable CLINICAL HISTORY: Dyspnea COMPARISON STUDY: 03/06/2024 FINDINGS: There is stable cardiomegaly with mild pulmonary vascular congestion. Stable large left diaphragmatic hernia. Stable patchy opacity at the left mid and lower lung and right mid lung. Stable blunting of the left costophrenic angle. No pneumothorax. IMPRESSION: Stable exam. ACT 112: Negative or not required by law. Electronically signed by: Bladimir Davis M.D. 07/08/2024 11:43 AM Discharge Plan Visit Data Chief Complaint: Abnormal Labs/Diagnostic Testing Stated Complaint: LOW PULSE OX ED Provider: Kajal Dai Discharge Problem: Aspiration pneumonia, Respiratory failure, Acute respiratory failure with hypoxia Patient Disposition: Admitted As Inpatient Discharge Instructions Interventions: ED Discharge Assessment Last Done: 07/08/24 14:32 Discharge Problem: Aspiration pneumonia Qualifiers: Aspiration pneumonia type: unspecified Laterality: unspecified laterality Lung location: unspecified part of lung Qualified Code(s): J69.0 - Pneumonitis due to inhalation of food and vomit Respiratory failure Qualifiers: Chronicity: acute Respiratory failure complication: hypoxia Qualified Code(s): J96.01 - Acute respiratory failure with hypoxia
[2024-07-08 12:17] LABS: Adenovirus PCR Not Detected (NotDetected); Bordetella parapertussis PCR Not Detected (NotDetected); Bordetella pertussis PCR Not Detected (NotDetected); Chlamydia pneumoniae PCR Not Detected (NotDetected); Coronavirus 229E PCR Not Detected (NotDetected); Coronavirus CoV-2 (COVID19)PCR Not Detected (NotDetected); Coronavirus HKU1 PCR Not Detected (NotDetected); Coronavirus NL63 PCR Not Detected (NotDetected); Coronavirus OC43PCR Not Detected (NotDetected); Human Metapneumovirus PCR Not Detected (NotDetected); Influenza A PCR Not Detected (NotDetected); Influenza B PCR Not Detected (NotDetected); Mycoplasma pneumoniae PCR Not Detected (NotDetected); Parainfluenza Virus 1 PCR Not Detected (NotDetected); Parainfluenza Virus 2 PCR Not Detected (NotDetected); Parainfluenza Virus 3 PCR Not Detected (NotDetected); Parainfluenza Virus 4 PCR Not Detected (NotDetected); Respiratory Syncytial VirusPCR Not Detected (NotDetected); Rhinovirus/Enterovirus PCR Not Detected (NotDetected)
[2024-07-08] MEDS: SODIUM CHLORIDE 0.9% 1,000 ML IV ONE (12:35)
[2024-07-08] MEDS: cefTRIAXone SODIUM 2,000 MG/50 ML BAG IV SCH (12:37)
[2024-07-08] MEDS: AZITHROMYCIN 500 MG/255 ML BAG IV ONE (12:54)
--- NOTE | 2024-07-08 13:19 | History & Physical Report ---
Date of Service July 08, 2024 Assessment & Plan (1) Acute hypoxemic respiratory failure: (2) Aspiration pneumonia: (3) Down's syndrome: Plan This is a 39-year-old male with PMH of Down syndrome who presented on 07/08 for hypoxia. History of aspiration pneumonia. #Aspiration pneumonia Leukocytosis at 14.92; febrile at 37.6 C Procalcitonin elevated at 0.91 BioFire negative Blood cultures drawn in the ED Rocephin + azithromycin x 1 CXR arrival revealed stable patchy opacity in the left mid and left lower lungs MRSA swab and sputum culture ordered, pending Unasyn 3000 mg IV q6h Benzonatate TID for cough DuoNeb 3 mL PRN for wheezing Acetaminophen as needed for pain/fever #Acute hypoxic respiratory failure SpO2 78% on arrival Not on supplemental oxygen at baseline Titrate supplemental oxygen as needed to maintain SpO2 >94% Continuous pulse oximetry #Down syndrome Noted; most of the history is obtained from patient's father (Oswaldo) at bedside #History of esophageal reconstruction Per father, okay swallowing; easy to chew/gluten-free diet Disposition: Admit to PCU telemetry VTE PPx: Lovenox 40 mg SQ q24h History of Present Illness Chief Complaint: Abnormal labs/diagnostic testing Primary Care Provider: Precious Ashley DO Oswaldo is a 39-year-old male with PMH of Down syndrome, aspiration pneumonia, esophageal reconstruction, and GERD. He presented on 07/08 at the behest of his PCP for hypoxia. Patient's father (Oswaldo) at the bedside provides history. He reports that the patient has had SOB, abdominal pain, fevers, and cough during the past 2 nights, which tends to happen when he develops aspiration pneumonia. Patient's fever has been up to 101 F the past 2 nights. No prior history of DVT/PE. No submental oxygen at baseline or CPAP at night. No vomiting, but patient has a history of reconstructive esophagus and does not have peristalsis. Patient does not take medicine on daily basis, but does use an inhaler every morning. He denies smoking or tobacco use. SpO2 was report edly 78% on RA, and patient was placed on oxy mask 4L en route. ED course: Rocephin 2000 mg IV Azithromycin 500 mg IV NSS 1000 mL IV ROS: Patient endorses fever, chills, night-sweats, dizziness, pleuritc CP, productive cough (clear/yellow), abdominal pain, and diarrhea. Patient denies falls, chest pain, SOB, hemoptysis, N/V, burning with urination, or blood in the urine/stool. Allergies Allergy/AdvReac Type Severity Reaction Status Date / Time gluten Allergy Severe Abdominal Verified 04/08/21 10:45 Pain lamotrigine Allergy Unknown Verified 11/28/21 16:23 Sulfa (Sulfonamide Allergy Unknown Verified 11/28/21 16:23 Antibiotics) Home Medications Medication Instructions Recorded Confirmed Type fexofenadine 180 mg tablet 180 mg PO DAILY PRN Other 12/13/20 07/08/24 History (Angelica Allergy) multivitamin 1 tab PO DAILY 12/20/20 07/08/24 History ipratropium 20 mcg-albuterol 100 1 puff inhalation BID 03/03/24 07/08/24 History mcg/actuation mist for inhalation (Combivent Respimat) amoxicillin 875 mg-potassium 1 tab PO BID #14 tabs 07/12/24 Rx clavulanate 125 mg tablet prednisone 10 mg tablet See Rx Instructions .Route 07/12/24 Rx .COMPLEX #12 tabs 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) Aspiration pneumonia (Acute) History of esophageal surgery reconstructed esophagus GERD with stricture Multifocal pneumonia (Acute) Acute respiratory failure with hypoxia (Acute) Respiratory failure (Acute) Allergic rhinitis Dehydration (Acute) Abdominal pain (Acute) Medical History Bronchostenosis DVT prophylaxis Hypoxia Sepsis Pneumonia Esophageal stricture reconstructed esophagus Aspiration into airway Trisomy 21 Social History Smoking Status: Never smoker Second Hand Exposure: No; Do You Dip or Chew Tobacco: No; Hx Alcohol Use: No Hx Substance Use: No Preferred Language: Maori Communication Ability: Effective Communication Ability Comment: Father at bedside Manager Business Intelligence Required: No Beliefs That Will Affect Care: None marital status: Single Current Living Situation: Parent and Family Feels Safe at Home: Yes Assistive Devices: None Review of Systems Review of Systems: See HPI above Physical Exam Physical Exam: General: no acute distress; father at bedside; non-toxic appearing; well-nouris hed; cooperative; SpO2 96% on 3L NC HEENT: normocephalic, atraumatic; no scleral icterus; PERRLA; vision and hearing grossly intact Neck: supple; no lymphadenopathy; trachea midline Skin: warm, dry without signs of tenting; no cyanosis; no rashes, bruising, lesions, or erythema noted CV: chest wall NTP; RRR; S1/S2 normal; no murmurs/rubs/gallops; pulses intact and symmetric at radial, DP, and PT Lungs: no acute respiratory distress; symmetrical chest wall expansion; diminished breath sounds in the lower lung goyal bilaterally ABD: Soft, NTP; BS present; no rebound/guarding; no distention MSK: no tics or fasciculations; no edema noted in the LEs b/l, nonerythematous Neuro: A&Ox3; normal mood and affect; fluent speech; no focal deficits; sensation intact and symmetric in the lower extremities bilaterally Results & Data Results & Data Vital Signs (Past 12 Hours) Vital Signs Temp Pulse Pulse Resp BP BP Pulse Ox 07/08/24 12:52 80 20 94/65 L 94 07/08/24 11:24 83 07/08/24 11:14 93 07/08/24 10:42 37.6 C H 86 22 87/59 L 78 L O2 Del Method O2 Flow Rate 07/08/24 12:52 Nasal Cannula 4 07/08/24 11:24 07/08/24 11:14 Nasal Cannula 4 07/08/24 10:42 Room Air Laboratory Results Abnormal lab results 07/08/24 07/08/24 Range/Units 11:05 12:10 WBC 14.92 H (4.8-10.8) K/ul Neut # (Auto) 12.86 H (1.40-6.50) K/uL Lymph # (Auto) 1.06 L (1.20-3.40) K/uL Sawyer # (Auto) 0.83 H (0.11-0.59) K/uL Glucose 111 H (70-99(Fasting)) mg/dl Procalcitonin 0.91 H (0-0.5) ng/ml Diagnostic Findings Chest X-Ray 07/08/24 10:52 XR chest 1V portable CLINICAL HISTORY: Dyspnea COMPARISON STUDY: 03/06/2024 FINDINGS: There is stable cardiomegaly with mild pulmonary vascular congestion. Stable large left diaphragmatic hernia. Stable patchy opacity at the left mid and lower lung and right mid lung. Stable blunting of the left costophrenic angle. No pneumothorax. IMPRESSION: Stable exam. ACT 112: Negative or not required by law. Electronically signed by: Bladimir Davis M.D. 07/08/2024 11:43 AM ECG Additional Comments: ECG revealed sinus rhythm with short LA at 79 bpm; QTc 417 Code Status & VTE Plan Code Status Full code VTE Prophylaxis Plan VTE Prophylaxis will be ordered: Yes Supervising Physician Co-Signing Physician Notes I personally saw and examined the patient. I independently reviewed the labs, EKG, imaging, problem list, medication list, past medical history and family history. 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 Presents to the ER with hypoxia. O/E Alert and orientated, HS RRR, no murmurs, Chest bibasal crackles. A/P Aspiration pneumonia - Unasyn, will add azithromycin for atypical pneumonia PG Care Time/CCT Total # of Minutes Spent Total Time Spent with Patient: Total time spent is greater than 50% in coordination of care (as documented) at patient's floor/unit and/or counseling patient: Coding [place] [address] INT INP/OBS CARE 3/75MIN Patient Type Established Medical Decision Making High Complexity Diagnoses Acute hypoxemic respiratory failure J96.01 Aspiration pneumonia J69.0 Aspiration pneumonia type: unspecified Laterality: bilateral Lung location: lower lobe of lung Down's syndrome Q90.9 (2) Aspiration pneumonia Aspiration pneumonia type: unspecified Laterality: bilateral Lung location: lower lobe of lung Qualified Code(s): J69.0 - Pneumonitis due to inhalation of food and vomit
[2024-07-08] MEDS ORDERED: AMPICILLIN/SULBACTAM SOD 3,000 MG/100 ML BAG IV ONE (14:45)
[2024-07-08] MEDS: AMPICILLIN/SULBACTAM SOD 3,000 MG/100 ML BAG IV SCH (15:44)
[2024-07-08] MEDS ORDERED: ACETAMINOPHEN 325 MG TAB PO PRN (16:00)
[2024-07-08] MEDS: BENZONATATE 100 MG CAPSULE PO SCH (17:09)
[2024-07-08 18:53] LABS: Appearance Urine Clear (Clear); Bilirubin Urine Negative (Negative); Blood Urine Negative (Negative); Color Urine Yellow; Glucose Urine UA Negative (Negative); Ketones Urine Negative (Negative); Leukocyte Esterase Urine Negative (Negative); Nitrite Urine Negative (Negative); Protein Urine Negative (Negative); Specific Gravity Urine 1.021 (1.000-1.030); Urobilinogen Urine Negative (Negative); pH Urine 5.5 (4.5-7.5)
[2024-07-08] MEDS: Albuterol HFA 8 GM Inhaler (Combivent Respimat P&T Subs) INH SCH (19:45)
[2024-07-08] MEDS: Ipratropium HFA Inhaler (Combivent Respimat P&T Subs) INH SCH (19:45)
[2024-07-08] MEDS ORDERED: AMPICILLIN/SULBACTAM SOD 3,000 MG/100 ML BAG IV SCH (20:45)
[2024-07-08] MEDS ORDERED: IPRATROPIUM BROMIDE/ALBUTEROL respimat INH INH SCH (21:00)
[2024-07-08] MEDS ORDERED: ENOXAPARIN INJ 40 MG/0.4 ML SYR SQ SCH (21:00)
--- NOTE | 2024-07-09 08:04 | Hospitalist Progress Note ---
Date of Service July 09, 2024 Assessment & Plan (1) Acute hypoxemic respiratory failure: (2) Aspiration pneumonia: (3) Down's syndrome: Plan This is a 39-year-old male with PMH of Down syndrome who presented on 07/08 for hypoxia. History of aspiration pneumonia. #Aspiration pneumonia Leukocytosis at 14.92; febrile at 37.6 C Procalcitonin elevated at 0.91 BioFire negative Blood cultures drawn in the ED Rocephin + azithromycin x 1, cont unasyn / azithromycin CXR arrival revealed stable patchy opacity in the left mid and left lower lungs MRSA swab neg Sputum culture ordered, pending Benzonatate TID for cough DuoNeb 3 mL PRN for wheezing Acetaminophen as needed for pain/fever #Acute hypoxic respiratory failure SpO2 78% on arrival Not on supplemental oxygen at baseline Titrate supplemental oxygen as needed to maintain SpO2 >94% Continuous pulse oximetry - weaned down to 1L, cont ICS, vibratory PEP #Down syndrome Noted; most of the history is obtained from patient's father (Oswaldo) at [facility] #History of esophageal reconstruction Per father, okay swallowing; easy to chew/gluten-free diet Disposition: pending clinical improvement VTE PPx: Lovenox 40 mg SQ q24h Admission and Anticipated Discharge Date Admission Date: July 08, 2024 Subjective No acute events Currently complaining of diarrhea Review of Systems Review of Systems: Comprehensive ROS neg Physical Exam Physical Exam: Gen: NAD, in bed comfortable HEENT: NC/AT, MMM, anicteric Lungs: coarse breath sounds at the bases CVS: s1s2nl, RRR Abd: nl bowel sounds, soft, NT : no gaston Ext: no edema Neuro: awake, alert Psych: calm cooperative Results & Data Results & Data Vital Signs (Past 12 Hours) Vital Signs Temp Pulse Pulse Resp BP Pulse Ox O2 Del Method 07/09/24 07:40 83 20 90 Nasal Cannula 07/09/24 07:02 83 07/09/24 02:39 36.5 C 76 14 90/60 L 92 Nasal Cannula 07/09/24 02:02 65 07/08/24 22:40 36.7 C 66 16 100/66 93 Nasal Cannula 07/08/24 21:14 Nasal Cannula O2 Flow Rate 07/09/24 07:40 2 07/09/24 07:02 07/09/24 02:39 2 07/09/24 02:02 07/08/24 22:40 2 07/08/24 21:14 3 PG Care Time/CCT Total # of Minutes Spent Total Time Spent with Patient: Total time spent is greater than 50% in coordination of care (as documented) at patient's floor/unit and/or counseling patient: Coding Level of Care Code 18298 SUB INP/OBS CARE 2/35MIN Diagnoses Acute hypoxemic respiratory failure J96.01 Aspiration pneumonia J69.0 Aspiration pneumonia type: unspecified Laterality: bilateral Lung location: lower lobe of lung Down's syndrome Q90.9 (2) Aspiration pneumonia Aspiration pneumonia type: unspecified Laterality: bilateral Lung location: lower lobe of lung Qualified Code(s): J69.0 - Pneumonitis due to inhalation of food and vomit
[2024-07-09 09:00] LABS: Basophils # (auto) 0.05 K/uL (0.00-0.20); Basophils % (auto) 0.6 %; Eosinophils # (auto) 0.19 K/uL (0.00-0.50); Eosinophils % (auto) 2.2 %; Hematocrit (blood only) 38.8 % (42.0-52.0); Hemoglobin 12.5 g/dl (14.0-18.0); Immature Granulocytes # (auto) 0.03 K/uL (0.01-0.20); Immature Granulocytes % (auto) 0.3 %; Lymphocytes # (auto) 1.02 K/uL (1.20-3.40); Lymphocytes % (auto) 11.8 %; Mean Corpuscular Hemoglobin 28.6 pg (25.0-34.0); Mean Corpuscular Hgb Conc 32.2 g/dL (32.0-36.0); Mean Corpuscular Volume 88.8 fL (80.0-100.0); Mean Platelet Volume 9.4 fL (9.4-12.4); Monocytes # (auto) 0.82 K/uL (0.11-0.59); Monocytes % (auto) 9.5 %; Neutrophils # (auto) 6.55 K/uL (1.40-6.50); Neutrophils % (auto) 75.6 %; Platelet Count 319 K/uL (130-400); RDW Coefficient of Variation 14.4 % (11.5-14.5); RDW Standard Deviation 46.5 fL (36.4-46.3); Red Blood Count 4.37 M/uL (4.70-6.10); White Blood Count 8.66 K/ul (4.8-10.8)
[2024-07-09 09:05] LABS: BUN Creatinine Ratio 11.5 (10-20); Calcium 8.5 mg/dl (8.6-10.3); Creatinine Clr Calc Pharmacy 84.9 ml/min
[2024-07-09] MEDS: AZITHROMYCIN 250 MG TAB PO SCH (09:40)
[2024-07-09] MEDS: ADVANCED PROBIOTIC 625 MG CAPSULE PO SCH (18:22)
[2024-07-10 06:32] LABS: Hematocrit (blood only) 37.4 % (42.0-52.0); Hemoglobin 11.9 g/dl (14.0-18.0); Mean Corpuscular Hemoglobin 27.9 pg (25.0-34.0); Mean Corpuscular Hgb Conc 31.8 g/dL (32.0-36.0); Mean Corpuscular Volume 87.8 fL (80.0-100.0); Mean Platelet Volume 9.1 fL (9.4-12.4); Platelet Count 321 K/uL (130-400); RDW Coefficient of Variation 14.2 % (11.5-14.5); RDW Standard Deviation 45.4 fL (36.4-46.3); Red Blood Count 4.26 M/uL (4.70-6.10); White Blood Count 6.25 K/ul (4.8-10.8)
[2024-07-10 06:55] LABS: BUN Creatinine Ratio 11.1 (10-20); Calcium 8.6 mg/dl (8.6-10.3); Creatinine Clr Calc Pharmacy 67.3 ml/min; Potassium 4.2 mmol/L (3.5-5.1)
[2024-07-10] MEDS ORDERED: BENZONATATE 100 MG CAPSULE PO PRN (12:15)
--- NOTE | 2024-07-10 14:07 | Hospitalist Progress Note ---
Date of Service July 10, 2024 Assessment & Plan (1) Acute hypoxemic respiratory failure: (2) Aspiration pneumonia: (3) Down's syndrome: Plan This is a 39-year-old male with PMH of Down syndrome who presented on 07/08 for hypoxia. History of aspiration pneumonia. #Aspiration pneumonia Leukocytosis at 14.92; febrile at 37.6 C Procalcitonin elevated at 0.91 BioFire negative Blood cultures drawn in the ED Rocephin + azithromycin x 1, cont unasyn / azithromycin CXR arrival revealed stable patchy opacity in the left mid and left lower lungs MRSA swab neg Sputum culture ordered, pending Changed Benzonatate TID ATC to PRN for cough and added scheduled guaifenesin DuoNeb 3 mL PRN for wheezing Acetaminophen as needed for pain/fever #Acute hypoxic respiratory failure SpO2 78% on arrival Not on supplemental oxygen at baseline Titrate supplemental oxygen as needed to maintain SpO2 >94% Continuous pulse oximetry Still requiring 2-3L occasionally weaned down to 1-2L, cont ICS, vibratory PEP Rpt CXR Pulm consult if hypoxia persisting #Down syndrome Noted; most of the history is obtained from patient's father (Oswaldo) at bedside #History of esophageal reconstruction Per father, okay swallowing; easy to chew/gluten-free diet Disposition: pending clinical improvement VTE PPx: Lovenox 40 mg SQ q24h 07/09, 07/10: pt's father at bedside Admission and Anticipated Discharge Date Admission Date: July 08, 2024 Subjective No acute events No complaints at this time Review of Systems Review of Systems: Comprehensive ROS neg Physical Exam Physical Exam: Gen: NAD, in bed comfortable HEENT: NC/AT, MMM, anicteric Lungs: coarse breath sounds at the bases CVS: s1s2nl, RRR Abd: nl bowel sounds, soft, NT : no gaston Ext: no edema Neuro: awake, alert Psych: calm cooperative Results & Data Results & Data Vital Signs (Past 12 Hours) Vital Signs Temp Pulse Pulse Resp BP Pulse Ox O2 Del Method 07/10/24 11:10 36.4 C L 69 20 98/65 L 89 L Nasal Cannula 07/10/24 07:54 36.7 C 61 20 94/60 L 91 Nasal Cannula 07/10/24 07:45 Nasal Cannula 07/10/24 07:44 56 L 07/10/24 07:02 65 19 93 Nasal Cannula 07/10/24 03:21 36.5 C 65 18 100/69 95 Nasal Cannula O2 Flow Rate 07/10/24 11:10 1.5 07/10/24 07:54 3 07/10/24 07:45 2 07/10/24 07:44 07/10/24 07:02 3 07/10/24 03:21 3 PG Care Time/CCT Total # of Minutes Spent Total Time Spent with Patient: Total time spent is greater than 50% in coordination of care (as documented) at patient's floor/unit and/or counseling patient: Coding Level of Care Code 96333 SUB INP/OBS CARE 2/35MIN Diagnoses Acute hypoxemic respiratory failure J96.01 Aspiration pneumonia J69.0 Aspiration pneumonia type: unspecified Laterality: unspecified laterality Lung location: unspecified part of lung Down's syndrome Q90.9 (2) Aspiration pneumonia Aspiration pneumonia type: unspecified Laterality: unspecified laterality Lung location: unspecified part of lung Qualified Code(s): J69.0 - Pneumonitis due to inhalation of food and vomit
--- NOTE | 2024-07-10 14:50 | XRay Report ---
EXAM: X-ray chest one-view portable CLINICAL HISTORY: Hypoxia, evaluate for progression of pneumonia PRIORS: Multiple prior chest radiographs with most recent being 07/08/2024 and dating back to 03/03/2024 TECHNIQUE: Frontal view chest FINDINGS: Moderate thoracic scoliosis, convex to the left distorts anatomy. Chest is well-expanded. Blunting of the left costophrenic angle noted and may impart be positional. Heterogeneous opacification present in the left hilar and upper lobe, slightly more confluent/consolidated and unchanged in size. The right lung shows improved appearance with decreased interstitial changes. Possible bronchiectasis in the upper lobe. Heart size is normal. No pneumothorax. Trachea is patent. Osseous structures demonstrate no acute abnormality. No radiopaque foreign body. IMPRESSION: Left upper lobe and perihilar opacification, overall unchanged in size, with a more consolidated or confluent appearance. Improved appearance of the right lung. Electronically signed by Delia Chavira 07-10-2024 2:50 PM
[2024-07-10] MEDS: guaiFENesin/DEXTROM SYRUP 100MG/10MG 5ML UDC PO PRN (21:18)
[2024-07-10] MEDS: guaiFENesin 600 MG TABCR PO SCH (21:21)
[2024-07-11] MEDS: ALBUT/IPRATROP 3MG/0.5MG NEB 3 ML VIAL NEB PRN (09:15)
[2024-07-11] MEDS: methylPREDNISolone 60 MG in SYRINGE 0 ML IV SCH (09:40)
[2024-07-11] MEDS: methylPREDNISolone 10 mg/mL (For Ped Dose < 7mg) IV SCH (09:48)
--- NOTE | 2024-07-11 13:18 | Hospitalist Progress Note ---
Date of Service July 11, 2024 Assessment & Plan (1) Acute hypoxemic respiratory failure: Plan: Oxygen per nasal cannula to maintain saturation greater than 90%. 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 Aspiration of gastric contents is a frequent complication and it appears he has aspirated with bilateral pneumonia, predominantly left-sided. There is undoubtedly a component of pneumonitis and parenteral steroids have been added. He remains on intravenous Unasyn, azithromycin has been discontinued. Will repeat chest x-ray again tomorrow, July 12 (3) Down's syndrome: Plan: With esophageal atresia at . He has subsequently had colonic interposition surgery. Supportive care Plan Hopeful discharge to previous living arrangements tomorrowJuly 12. Hopefully oxygen can be weaned off before discharge. He will remain on oral antibiotic for another week at discharge along with a tapering dose of oral prednisone. Admission and Anticipated Discharge Date Admission Date: July 08, 2024 Subjective Awake and alert. No distress. 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 He apparently aspirated with evidence of predominantly left-sided pneumonia. There is undoubtedly a component of pneumonitis and parenteral steroid therapy has been ordered. He remains on intravenous Unasyn. Azithromycin has been discontinued. Will recheck chest x-ray again tomorrow, July 12. Telemetry strip reveals a short HI interval with evidence of a delta wave. Review of twelve-lead EKG reveals the short HI interval but no evidence of a delta wave. He has had no SVT. No history of WPW syndrome. Blood cultures remain negative. He is currently on oxygen per nasal cannula at 1 L/min. Hopefully this will be weaned off before discharge. If not, he will have a 2 step at discharge to determine his oxygen needs at home Review of Systems 2 Review of Systems: Constitutionalno fever or chills ENTno blurred vision, no double vision, no epistaxis, no sore throat Respiratoryno cough, no wheezing, no shortness of breath Cardiacno palpitations, no chest pain, no syncope Cyn nausea, vomiting, diarrhea, melena, hematochezia GUno urinary retention, no urinary incontinence, no dysuria, no hematuria Musculoskeletalno joint pain, no muscle tenderness Skinno bruising, no rashes, no pruritus Neurono isolated weakness, no paresthesia, no weakness Psychno depression, no anxiety Physical Exam 2 Physical Exam: General-alert and oriented x2, no fever, no chills HEENT-head atraumatic and normocephalic, pupils equal and reactive to light, extraocular muscles intact Neck-no lymphadenopathy or thyromegaly, trachea midline Chest-scattered rhonchi. No wheezing. No dullness Cardiac-regular rate and rhythm, normal S1 and S2 Abdomen-normal bowel sounds, no hepatosplenomegaly Extremities-no cyanosis, clubbing, or edema Neuro-Down syndrome evident. Cranial nerves II through XII intact, motor and sensory function within normal limits, strength symmetrical, no focal deficits Psych-normal affect, normal mood Results & Data Results & Data Vital Signs (Past 12 Hours) Vital Signs Temp Pulse Pulse Resp BP Pulse Ox O2 Del Method 07/11/24 11:30 36.7 C 65 18 94/61 L 95 Nasal Cannula 07/11/24 09:17 74 92 Room Air 07/11/24 08:00 53 L 07/11/24 07:51 36.7 C 74 18 97/67 L 93 Nasal Cannula 07/11/24 07:15 67 16 98 Nasal Cannula 07/11/24 04:37 36.7 C 74 16 105/72 96 Nasal Cannula O2 Flow Rate 07/11/24 11:30 1 07/11/24 09:17 07/11/24 08:00 07/11/24 07:51 1 07/11/24 07:15 2 07/11/24 04:37 2 Laboratory Results 07/10/24 06:09 07/10/24 06:09 PG Care Time/CCT Total # of Minutes Spent Total Time Spent with Patient: Total time spent is greater than 50% in coordination of care (as documented) at patient's floor/unit and/or counseling patient: Coding Level of Care Code 13042 SUB INP/OBS CARE 3/50MIN Diagnoses Acute hypoxemic respiratory failure J96.01 Aspiration pneumonia J69.0 Aspiration pneumonia type: unspecified Laterality: unspecified laterality Lung location: unspecified part of lung Down's syndrome Q90.9 (2) Aspiration pneumonia Aspiration pneumonia type: unspecified Laterality: unspecified laterality L ozzie location: unspecified part of lung Qualified Code(s): J69.0 - Pneumonitis due to inhalation of food and vomit
--- NOTE | 2024-07-11 16:48 | Electrocardiogram Report ---
Test Reason : Blood Pressure : */* mmHG Vent. Rate : 61 BPM Atrial Rate : 61 BPM P-R Int : 84 ms QRS Dur : 112 ms QT Int : 420 ms P-R-T Axes : 26 16 69 degrees QTcB Int : 422 ms Normal sinus rhythm [id number] Abnormal ECG When compared with ECG of 08-Jul-2024 10:59, [id number]-[id number]-[id number] is now Present Confirmed by David Lorenzo ([id number] on 07/11/2024 4:48:29 PM Referred By: Precious Ashley Confirmed By: David Lorenzo
[2024-07-12 07:38] VITALS: TEMP 97.7
--- NOTE | 2024-07-12 08:00 | XRay Report ---
EXAM: XR chest 1V portable CLINICAL HISTORY: aspiration PNA TECHNIQUE: Radiograph of chest was acquired. COMPARISON: 07/10/2024 13:34:00 HAMMER OPERATOR FINDINGS: Widening of left ratna. Subsegmental atelectatic band in left upper zone. Rest of the lungs are clear and well-expanded with no pulmonary infiltrate. Blunting of left costophrenic angle. Cardiomegaly. No acute osseous abnormality. Mild leftward scoliosis. IMPRESSION: 1. Cardiomegaly. 2. Mildly decreased left costophrenic angle blunting. 3. Decreased left parahilar hazy opacity. Electronically signed by Wilman Salcedo 07-12-2024 07:59 AM
[2024-07-12 08:56] LABS: Hematocrit (blood only) 40.1 % (42.0-52.0); Mean Corpuscular Hemoglobin 27.5 pg (25.0-34.0); Mean Corpuscular Hgb Conc 32.4 g/dL (32.0-36.0); Mean Platelet Volume 9.4 fL (9.4-12.4); Platelet Count 422 K/uL (130-400); Red Blood Count 4.72 M/uL (4.70-6.10); White Blood Count 10.91 K/ul (4.8-10.8)
[2024-07-12 09:23] LABS: Basophils # (auto) 0.01 K/uL (0.00-0.20); Basophils % (auto) 0.1 %; Immature Granulocytes # (auto) 0.04 K/uL (0.01-0.20); Immature Granulocytes % (auto) 0.4 %; Lymphocytes # (auto) 0.56 K/uL (1.20-3.40); Lymphocytes % (auto) 5.1 %; Monocytes # (auto) 0.22 K/uL (0.11-0.59); Neutrophils # (auto) 10.08 K/uL (1.40-6.50); Neutrophils % (auto) 92.4 %; Polychromasia 1+; Target Cells 1+
[2024-07-12 09:26] LABS: BUN Creatinine Ratio 20.9 (10-20); Calcium 9.2 mg/dl (8.6-10.3); Creatinine Clr Calc Pharmacy 74.4 ml/min; Potassium 3.9 mmol/L (3.5-5.1)
[2024-07-12 10:08] VITALS: RESP 18
[2024-07-12 11:23] VITALS: BP 118/71; PULSE 79; O2SAT 92
--- NOTE | 2024-07-12 12:12 | Discharge Summary ---
Discharge Summary Date of Service July 12, 2024 Principal Dx & Hospital Course #1 = Principal Diagnosis (1) Acute hypoxemic respiratory failure: Oxygen per nasal cannula to maintain saturation greater than 90%. Wean off as tolerated. 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 Aspiration of gastric contents is a frequent complication and it appears he has aspirated with bilateral pneumonia, predominantly left-sided. There is undoubtedly a component of pneumonitis and parenteral steroids were added. He was also treated while hospitalized with intravenous Unasyn. Chest x-ray done today, July 12 looks much better. (3) Down's syndrome: With esophageal atresia at . He has subsequently had colonic interposition surgery. Supportive care Plan Home today, July 12, on continued Augmentin for 1 more week and a prednisone tapering dose. He will wear oxygen continuously at 2 L/min per nasal cannula which will eventually be weaned off by his PCP at which point he will be allowed to return to work. He will remain off work until then. Admission HPI Per Admitting Provider Oswaldo is a 39-year-old male with PMH of Down syndrome, aspiration pneumonia, esophageal reconstruction, and GERD. He presented on 07/08 at the behest of his PCP for hypoxia. Patient's father (Oswaldo) at the bedside provides history. He reports that the patient has had SOB, abdominal pain, fevers, and cough during the past 2 nights, which tends to happen when he develops aspiration pneumonia. Patient's fever has been up to 101 F the past 2 nights. No prior history of DVT/PE. No submental oxygen at baseline or CPAP at night. No vomiting, but patient has a history of reconstructive esophagus and does not have peristalsis. Patient does not take medicine on daily basis, but does use an inhaler every morning. He denies smoking or tobacco use. SpO2 was reportedly 78% on RA, and patient was placed on oxy mask 4L en route. ED course: Rocephin 2000 mg IV Azithromycin 500 mg IV NSS 1000 mL IV ROS: Patient endorses fever, chills, night-sweats, dizziness, pleuritc CP, productive cough (clear/yellow), abdominal pain, and diarrhea. Patient denies falls, chest pain, SOB, hemoptysis, N/V, burning with urination, or blood in the urine/stool. Discharge Exam General-alert and oriented x2, no fever, no chills HEENT-head atraumatic and normocephalic, pupils equal and reactive to light, extraocular muscles intact Neck-no lymphadenopathy or thyromegaly, trachea midline Chest-scattered rhonchi. No wheezing. No dullness Cardiac-regular rate and rhythm, normal S1 and S2 Abdomen-normal bowel sounds, no hepatosplenomegaly Extremities-no cyanosis, clubbing, or edema Neuro-Down syndrome evident. Cranial nerves II through XII intact, motor and sensory function within normal limits, strength symmetrical, no focal deficits Psych-normal affect, normal mood Discharge Plan Discharge Items Patient Disposition: Home - Self-Care Reason For Visit: ASPIRATION PNA, HYPOXIA Discharge Diagnosis: Aspiration pneumonia and pneumonitis, acute hypoxic respiratory failure Activity: Resume your previous activity Non-emergency contact: Primary Care Provider Call non-emergency contact if: your symptoms worsen Follow-up/Referrals: Precious Araujo DO [Primary Care Provider] - Diet: Regular Addtl Attending Provider Instructions: Take prednisone in a tapering dose fashion as directed. Take amoxicillin/clavulanate twice daily for 1 more week. Wear oxygen continuously at 2 L/min. See primary care provider soon as possible. Oxygen will eventually be weaned off and he will be able to return to work after the oxygen has been discontinued. Pending Studies at Discharge: No Stand-Alone Forms: My [facility] [employer], Smoking Cessation Medications and DC Order Prescriptions: New amoxicillin-pot clavulanate 875-125 mg tablet 1 tab PO BID Qty: 14 0RF prednisone 10 mg tablet See Rx Instructions .ROUTE .COMPLEX Qty: 12 0RF Rx Instructions: 10 mg orally 3 times a day for 2 days, then 10 mg twice a day for 2 days, then 10 mg once a day for 2 days, then stop Continued fexofenadine [Angelica Allergy] 180 mg tablet 180 mg PO DAILY PRN (Reason: Other) multivitamin Tablet 1 tab PO DAILY Combivent Respimat 20-100 mcg/actuation mist 1 puff inhalation BID Rx Instructions: inhale 1 puff by mouth and INTO THE LUNGS twice a day Discharge Orders: Discharge Order (Routine); Ordered 07/12/24 Ordered By: Tay Christopher Admission Data Admit Date/Time: 07/08/24 13:55 Attending Provider: Tay Christopher Admit Provider: Dallin Dinh Primary Care Provider: Precious Araujo Hospital Stay Data Pending Results Patient Have Any Pending Studies at Discharge: No Discharge Instructions Given to Patient (Per Discharging Provider) Take prednisone in a tapering dose fashion as directed. Take amoxicillin/clavulanate twice daily for 1 more week. Wear oxygen continuously at 2 L/min. See primary care provider soon as possible. Oxygen will eventually be weaned off and he will be able to return to work after the oxygen has been discontinued. Total Time Total Time Spent Total Time Spent (In Minutes): 45 minutes Coding Level of Care Code 08020 INP/OBS DISCH >30 MIN Diagnoses Acute hypoxemic respiratory failure J96.01 Aspiration pneumonia J69.0 Aspiration pneumonia type: unspecified Laterality: unspecified laterality Lung location: unspecified part of lung Down's syndrome Q90.9
--- NOTE | 2024-07-14 10:00 | Coding Query ---
CODING QUERY To promote full compliance with coding requirements relating to patient care, provider participation is requested in all cases of oyster culler uncertainty. 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 Aspiration of gastric contents is a frequent complication and it appears he has aspirated with bilateral pneumonia, predominantly left-sided". Please specify below, in your clinical opinion: ( ) Aspiration Pneumonia is Not a Postoperative Complication of the colonic interposition surgery ( x ) Aspiration Pneumonia Is a Postoperative Complication of the colonic interposition surgery Physician's Response(s): Thank you Elsa Ocampo Principal Diagnosis: "that condition established after study, to be chiefly responsible for occasioning the admission of the patient to the hospital for care." Co-Existing Principal Diagnosis: "when two or more diagnoses equally meet the criteria for principal diagnosis as determined by the circumstances of admission, diagnostic work up, and/or therapy provided, and the Alphabetic Index, Tabular List, or another coding guideline does not provide sequencing direction, any one of the diagnoses may be sequenced first." "When the physician has documented what appears to be a current diagnosis in the body of the record, but has not included the diagnosis in the final diagnostic statement, the physician should be asked whether the diagnosis should be added." (Source Coding Clinic 2 QTR90. p3-4) OCTAVIANO
== END 2024-07-12 13:09 | disposition home or self-care (01) | DRG 205 ==
LOC: ED 10:39 → SUATTDRO 13:55 → 2S 13:55

== ENCOUNTER 2024-09-18 08:54 | Inpatient (IN) ==
--- NOTE | 2024-09-18 09:23 | Emergency Department Note ---
History of Present Illness General Chief complaint: Cough Stated complaint: ASPIRATION, PNEUMONIA, SOB, COUGH Time Seen by Provider: 09/18/24 09:07 History of Present Illness Maximum Pain Intensity: 5 This is a 39-year-old male with a history of trisomy 21 on and history of esophageal surgery that presents to the emergency department via private vehicle accompanied by parents with complaints of "aspiration, pneumonia, shortness of breath, cough". Parents are excellent historians and the patient also provides the history. Patient was fine yesterday, no complaints. No shortness of breath or cough yesterday. He was at the [employer] and had a hotdog and hamburger. Parents note that around 6:30 AM this morning patient woke up coughing and was brought here. Cough is productive of a yellow thick mucus type sputum. No hemoptysis. Upon my entrance into the examination room patient is on 2 L nasal cannula and is saturating in the low 90s. Without oxygen he is about 84% on room air. Patient does feel short of breath. No history of PE or DVT per patient or parents. No current antibiotic use. Home Medications Medication Instructions Recorded Confirmed Type fexofenadine 180 mg tablet 180 mg PO DAILY PRN Congestion 12/13/20 09/18/24 History (Angelica Allergy) multivitamin 1 tab PO DAILY 12/20/20 09/18/24 History ipratropium 20 mcg-albuterol 100 1 puff inhalation BID 03/03/24 09/18/24 History mcg/actuation mist for inhalation (Combivent Respimat) Lactobacil.acidophilus-Bifido.animalis 1 cap PO DAILY 07/18/24 09/18/24 History 5 billion cell sprinkle capsule (Probiotic) albuterol sulfate 2.5 mg/3 mL 2.5 mg (3 mL) inhalation Q4H PRN 07/18/24 09/18/24 Rx (0.083 %) solution for nebulization shortness of breath or wheezing #90 mL digestive enzymes 1 cap PO .DAILY WITH MEALS 07/18/24 09/18/24 History mirtazapine 7.5 mg tablet 7.5 mg PO UD 07/18/24 09/18/24 History ferrous sulfate 325 mg (65 mg 325 mg PO .Q OTHER DAY 09/18/24 09/18/24 History iron) tablet fluoride (sodium) 1.1 % dental 1 applic dental BID 09/18/24 09/18/24 History paste Allergies Allergy/AdvReac Type Severity Reaction Status Date / Time gluten Allergy Severe Abdominal Verified 07/18/24 00:55 Pain lamotrigine Allergy Intermediate Rash Verified 07/18/24 00:55 Sulfa (Sulfonamide Allergy Unknown STRONG Verified 07/18/24 00:55 Antibiotics) FAMILY ALLERGY HX. Past Med/Surg History Problem List (Updated 09/18/24 @ 09:38 by Lamonte Peterson PA-C) Elevated troponin I level (Acute) Bilateral pneumonia (Acute) Acute hypoxemic respiratory failure (Acute) Acute viral bronchiolitis Tracheobronchitis Elevated troponin Rhinovirus Aspiration pneumonia (Acute) History of esophageal surgery (Acute) reconstructed esophagus GERD with stricture Multifocal pneumonia (Acute) Allergic rhinitis Dehydration (Acute) Abdominal pain (Acute) Medical History Down's syndrome (05/24/12) Bronchostenosis DVT prophylaxis Hypoxia Sepsis Pneumonia Esophageal stricture reconstructed esophagus Aspiration into airway Trisomy 21 Social History Smoking Status: Never smoker Second Hand Exposure: No; Do You Dip or Chew Tobacco: No; Hx Alcohol Use: No Hx Substance Use: No Preferred Language: German Communication Ability: Effective Communication Ability Comment: Father at bedside [employer] Required: No Beliefs That Will Affect Care: None marital status: Single Current Living Situation: Parent and Family Feels Safe at Home: Yes Assistive Devices: None Review of Systems A total of 10 systems reviewed and were otherwise negative Physical Exam Vital Signs Vital Signs - 24 hr 09/18/24 09:01 09/18/24 09:14 09/18/24 10:00 Temperature 36.9 C Temperature Source Oral Pulse Rate 72 80 Pulse Rate from SpO2 Sensor Pulse Rhythm Regular Respiratory Rate 18 18 Respiratory Effort / Characteristics Non-Labored Spontaneous Respiratory Depth Normal Respiratory Pattern Regular Blood Pressure 96/64 L Blood Pressure Mean 74 Pulse Oximetry 90 84 L 94 Oxygen Delivery Method Nasal Cannula Room Air Nasal Cannula Oxygen Flow Rate 2 3 Sepsis Recent Fever Within 48 Hours No Sepsis New/Unexplained Change in Mental Status N/A Sepsis Action Taken by Nursing No Action Required 09/18/24 10:12 09/18/24 10:25 09/18/24 10:30 Temperature Temperature Source Pulse Rate 80 75 Pulse Rate from SpO2 Sensor 76 Pulse Rhythm Respiratory Rate 26 H Respiratory Effort / Characteristics Respiratory Depth Respiratory Pattern Blood Pressure 109/69 Blood Pressure Mean 77 Pulse Oximetry 95 99 Oxygen Delivery Method Nasal Cannula Nebulizer Oxygen Flow Rate 2 8 Sepsis Recent Fever Within 48 Hours Sepsis New/Unexplained Change in Mental Status Sepsis Action Taken by Nursing 09/18/24 11:03 09/18/24 11:26 09/18/24 11:30 Temperature Temperature Source Pulse Rate 80 86 86 Pulse Rate from SpO2 Sensor 81 86 86 Pulse Rhythm Respiratory Rate 21 25 H 25 H Respiratory Effort / Characteristics Respiratory Depth Respiratory Pattern Blood Pressure 106/68 106/69 Blood Pressure Mean 80 85 Pulse Oximetry 95 93 93 Oxygen Delivery Method Nasal Cannula Oxygen Flow Rate 3 Sepsis Recent Fever Within 48 Hours Sepsis New/Unexplained Change in Mental Status Sepsis Action Taken by Nursing 09/18/24 12:02 Temperature Temperature Source Pulse Rate 83 Pulse Rate from SpO2 Sensor 83 Pulse Rhythm Respiratory Rate 19 Respiratory Effort / Characteristics Respiratory Depth Respiratory Pattern Blood Pressure Blood Pressure Mean Pulse Oximetry 94 Oxygen Delivery Method Nasal Cannula Oxygen Flow Rate 3 Sepsis Recent Fever Within 48 Hours Sepsis New/Unexplained Change in Mental Status Sepsis Action Taken by Nursing VITAL SIGNS - Vital signs and nursing notes were reviewed. Borderline hypotensive at 96/64, on 2 L nasal cannula in the low 90s. GENERAL -39-year-old male appearing his stated age who is in no acute distress. Communicates well with provider and answers questions appropriately. SKIN - Without rashes. No meningeal or petechial rash. HEAD - NC/AT. EYES - PERRL with EOMI bilaterally. Sclera anicteric. EARS - No deformities of external structures noted on gross examination bilaterally. NOSE - Midline and without cyanosis. No epistaxis or purulent drainage noted. MOUTH/OROPHARYNX - Without perioral cyanosis. Buccal mucosa pink and moist and without leukoplakia. Tongue midline with equal elevation of palate bilaterally. No tonsillar hypertrophy, erythema, or exudates noted. Fair dentition noted. NECK - Neck with FROM. No nuchal rigidity. LUNGS - Chest wall symmetric without accessory muscle use, intercostals retractions, or central cyanosis. Faint bilateral wheezing. No increased work of breathing. CARDIAC -regular rate and rhythm. ABDOMEN - Abdominal contour normal without pulsations or visible masses. BS normoactive all four quadrants. No tenderness, palpable masses, hepatosplenomegaly, or ascites noted. EXTREMITIES - No clubbing or peripheral cyanosis. +5/5 strength noted in UE/LE bilaterally. NEUROLOGIC - Cranial nerves II through XII grossly intact. PSYCH -alert, oriented and pleasant on exam Course Administered Medications Discontinued Medications Albuterol (Albut/Ipratrop 3mg/0.5mg Neb 3 Ml Vial) 3 ml NEB NOW STA; Protocol Stop: 09/18/24 09:27 Last Admin: 09/18/24 10:22 Dose: 3 ml Documented By: SESAR Guaifenesin (Guaifenesin Sugar Free 200 Mg/10 Ml Udc) 200 mg PO NOW STA Stop: 09/18/24 10:03 Last Admin: 09/18/24 10:18 Dose: 200 mg Documented By: SESAR Sodium Chloride (Nss) 500 mls @ 500 mls/hr IV .Q1H ONE Stop: 09/18/24 10:28 Last Infusion: 09/18/24 12:10 Dose: Infused Documented By: Admin: 09/18/24 10:19 Dose: 500 mls/hr Documented By: SESAR Ampicillin Sodium/Sulbactam Sodium (Unasyn) 3,000 mg in 100 mls @ 200 mls/hr IV NOW STA Stop: 09/18/24 10:18 Last Infusion: 09/18/24 10:51 Dose: Infused Documented By: Admin: 09/18/24 10:19 Dose: 200 mls/hr Documented By: SESAR Medical Decision Making Laboratory Data 09/18/24 10:00 09/18/24 10:00 Lab Results 09/18/24 Range/Units 10:00 WBC 10.44 (4.8-10.8) K/ul RBC 5.55 (4.70-6.10) M/uL Hgb 15.6 (14.0-18.0) g/dl Hct 49.2 (42.0-52.0) % MCV 88.6 (80.0-100.0) fL MCH 28.1 (25.0-34.0) pg MCHC 31.7 L (32.0-36.0) g/dL RDW Std Deviation 67.4 H (36.4-46.3) fL RDW Coeff of Jorge 21.7 H (11.5-14.5) % Plt Count 287 (130-400) K/uL MPV 9.7 (9.4-12.4) fL Immature Gran % (Auto) 0.6 % Neut % (Auto) 87.3 % Lymph % (Auto) 7.2 % [place] % (Auto) 4.2 % Eos % (Auto) 0.2 % Baso % (Auto) 0.5 % Neut # (Auto) 9.12 H (1.40-6.50) K/uL Lymph # (Auto) 0.75 L (1.20-3.40) K/uL [place] # (Auto) 0.44 (0.11-0.59) K/uL Eos # (Auto) 0.02 (0.00-0.50) K/uL Baso # (Auto) 0.05 (0.00-0.20) K/uL Immature Gran # (Auto) 0.06 (0.01-0.20) K/uL Polychromasia 1+ Anisocytosis Present Tear Drop Cells 1+ Sodium 141 (136-145) mmol/L Potassium 3.6 (3.5-5.1) mmol/L Chloride 104 (98-107) mmol/L Carbon Dioxide 29 (21-32) mmol/L Anion Gap 8 (3-11) BUN 20 (6-23) mg/dl Creatinine 1.05 (0.6-1.4) mg/dl Est Cr Clr Drug Dosing 60.9 ml/min eGFR 92.60 BUN/Creatinine Ratio 19.0 (10-20) Glucose 94 (70-99(Fasting)) mg/dl Lactate 1.1 (0.4-2.0) mmol/L Calcium 9.0 (8.6-10.3) mg/dl Total Bilirubin 0.5 (0.2-1.0) mg/dl AST 24 (13-39) U/L ALT 19 (7-52) U/L Alkaline Phosphatase 66 (34-104) U/L Troponin I High Sens 3.5 (0-20) pg/ml Total Protein 7.1 (6.0-8.3) gm/dl Albumin 4.1 (3.4-5.0) gm/dl Globulin 3.0 (2.5-4.0) gm/dl Albumin/Globulin Ratio 1.4 (0.9-2) Procalcitonin 0.13 (0-0.5) ng/ml Nasal Screen MRSA (PCR) Negative (Negative) Adenovirus (PCR) Not Detected (NotDetected) B. pertussis DNA (PCR) Not Detected (NotDetected) B.parapertussis DNA PCR Not Detected (NotDetected) C. pneumoniae DNA (PCR) Not Detected (NotDetected) Coronavirus OC43 (PCR) Not Detected (NotDetected) Coronavirus HKU1 (PCR) Not Detected (NotDetected) Coronavirus 229E (PCR) Not Detected (NotDetected) SARS-CoV-2 (PCR) Not Detected (NotDetected) Coronavirus NL63 (PCR) Not Detected (NotDetected) Human Metapneumovir PCR Not Detected (NotDetected) Influenza Type A (PCR) Not Detected (NotDetected) Influenza Type B (PCR) Not Detected (NotDetected) M. pneumoniae (PCR) Not Detected (NotDetected) Parainfluenza 1 (PCR) Not Detected (NotDetected) Parainfluenza 2 (PCR) Not Detected (NotDetected) Parainfluenza 3 (PCR) Not Detected (NotDetected) Parainfluenza 4 (PCR) Not Detected (NotDetected) RSV (PCR) Not Detected (NotDetected) Entero/Rhino (PCR) Not Detected (NotDetected) Imaging Data My Impression: Chest x-ray: Per my interpretation there is bilateral pneumonia. Radiologist's Impression: Chest X-Ray 09/18/24 09:16 XR chest 2V PA/lateral CLINICAL HISTORY: cough, hypoxia COMPARISON STUDY: 07/18/2024 FINDINGS: Heart size and pulmonary vasculature are normal. Stable operative changes of esophagectomy and colonic interposition. There is patchy opacity at the mid lungs bilaterally, increased. No pleural effusion or pneumothorax seen. Stable scoliosis. IMPRESSION: Bilateral pneumonia, increased. ACT 112: Negative or not required by law. Electronically signed by: Bladimir Davis M.D. 09/18/2024 10:03 AM MDM Narrative Patient was seen and evaluated as above in room A11. Review was performed of triage nursing notes and vital signs. I did review pertinent previous visits and patient history. After obtaining a thorough history and physical examination the above work up was performed. Patient presents to us today for evaluation of a cough. Per review of the EMR patient does have history of acute hypoxic respiratory failure, aspiration pneumonia with previous admissions to this hospital for similar. On my entrance into the examination room patient on 2 L nasal cannula saturating in the low 90s. I did temporarily turn off the oxygen to trend the patient's O2 at bedside. This dipped to 84% at 9:14 AM and was quickly titrated back to 2 L nasal cannula. He then began saturating again in the low 90s. Parents note he is not normally on supplemental oxygen. Options of care were discussed with the patient and parents at bedside. An EKG was performed. Per my interpretation this reveals normal sinus rhythm at a rate of 69 bpm. QTc 430. QRS 92. No ST elevation on this rhythm tracing. Chest x- ray per my interpretation does show bilateral pneumonia. Noting history, this is concerning for aspiration pneumonia. Labs reveal no leukocytosis or concerning anemia. Lactate is normal. Patient was medicated with DuoNeb breathing treatment here and IV fluids. IV antibiotics ordered, Unasyn with suspicion of aspiration pneumonia. MRSA nasal swab is pending. Sputum culture and Gram stain pending as well. Patient's mother did ask if we could order an expectorant/medicine to thin the mucus. I did review previous medication administration here and called and spoke to pharmacist in house as well. We reviewed the EMR. Patient has had guaifenesin type medicines previously. This was ordered. At this time I do believe that further evaluation and management in the inpatient setting is warranted. Case discussed with the hospitalist service. Please refer to further documentation regarding his stay. GCS: 15 In the evaluation and treatment of this patient the following differential diagnoses were entertained: Aspiration pneumonia, PE, pneumothorax, pneumomediastinum, among others. Impression & Plan Aspiration pneumonia, History of esophageal surgery, Acute hypoxemic respiratory failure Discharge Plan Visit Data Chief Complaint: Cough Stated Complaint: ASPIRATION, PNEUMONIA, SOB, COUGH ED Provider: [facility] ED Midlevel Provider: Lamonte Peterson Discharge Problem: Aspiration pneumonia, History of esophageal surgery, Acute hypoxemic respiratory failure Patient Disposition: Admitted As Inpatient Condition: Fair Forms Stand Alone Forms: My [facility] [employer] Prescriptions Prescriptions: No Action fexofenadine [Angelica Allergy] 180 mg tablet 180 mg PO DAILY PRN (Reason: Congestion) multivitamin Tablet 1 tab PO DAILY Combivent Respimat 20-100 mcg/actuation mist 1 puff inhalation BID Rx Instructions: inhale 1 puff by mouth and INTO THE LUNGS twice a day digestive enzymes Capsule 1 cap PO .DAILY WITH MEALS Rx Instructions: administer with food; swallow whole; do not crush/chew/dissolve/break/cut mirtazapine 7.5 mg tablet 7.5 mg PO UD Rx Instructions: 7.mg po hs. hasnt started medication yet Probiotic 5 billion cell Capsule, Sprinkle 1 cap PO DAILY albuterol sulfate 2.5 mg /3 mL (0.083 %) solution for nebulization 2.5 mg inhalation Q4H PRN (Reason: shortness of breath or wheezing) Qty: 90 0RF ferrous sulfate 325 mg (65 mg iron) tablet 325 mg PO .Q OTHER DAY fluoride (sodium) 1.1 % paste 1 applic dental BID Referrals Referrals: Precious Araujo DO [Primary Care Provider] -
--- NOTE | 2024-09-18 09:59 | Emergency Department Note ---
ED Visit Note I was consulted by the Advanced Practice Provider Lamonte Peterson PA-C. I performed a substantive portion of the visit including all aspects of medical decision making. .
--- NOTE | 2024-09-18 10:05 | XRay Report ---
XR chest 2V PA/lateral CLINICAL HISTORY: cough, hypoxia COMPARISON STUDY: 07/18/2024 FINDINGS: Heart size and pulmonary vasculature are normal. Stable operative changes of esophagectomy and colonic interposition. There is patchy opacity at the mid lungs bilaterally, increased. No pleura l effusion or pneumothorax seen. Stable scoliosis. IMPRESSION: Bilateral pneumonia, increased. ACT 112: Negative or not required by law. Electronically signed by: Bladimir Davis M.D. 09/18/2024 10:03 AM
[2024-09-18] MEDS: guaiFENesin SUGAR FREE 200 MG/10 ML UDC PO STA (10:18)
[2024-09-18] MEDS: AMPICILLIN/SULBACTAM SOD 3,000 MG/100 ML BAG IV STA (10:19)
[2024-09-18] MEDS: SODIUM CHLORIDE 0.9% 500 ML IV ONE (10:19)
[2024-09-18 10:20] LABS: Basophils # (auto) 0.05 K/uL (0.00-0.20); Basophils % (auto) 0.5 %; Eosinophils # (auto) 0.02 K/uL (0.00-0.50); Eosinophils % (auto) 0.2 %; Hematocrit (blood only) 49.2 % (42.0-52.0); Hemoglobin 15.6 g/dl (14.0-18.0); Immature Granulocytes # (auto) 0.06 K/uL (0.01-0.20); Immature Granulocytes % (auto) 0.6 %; Lymphocytes # (auto) 0.75 K/uL (1.20-3.40); Lymphocytes % (auto) 7.2 %; Mean Corpuscular Hemoglobin 28.1 pg (25.0-34.0); Mean Corpuscular Hgb Conc 31.7 g/dL (32.0-36.0); Mean Corpuscular Volume 88.6 fL (80.0-100.0); Mean Platelet Volume 9.7 fL (9.4-12.4); Monocytes # (auto) 0.44 K/uL (0.11-0.59); Monocytes % (auto) 4.2 %; Neutrophils # (auto) 9.12 K/uL (1.40-6.50); Neutrophils % (auto) 87.3 %; Platelet Count 287 K/uL (130-400); RDW Coefficient of Variation 21.7 % (11.5-14.5); RDW Standard Deviation 67.4 fL (36.4-46.3); Red Blood Count 5.55 M/uL (4.70-6.10); White Blood Count 10.44 K/ul (4.8-10.8)
[2024-09-18] MEDS: ALBUT/IPRATROP 3MG/0.5MG NEB 3 ML VIAL NEB STA (10:22)
[2024-09-18 10:41] LABS: Albumin Globulin Ratio 1.4 (0.9-2); Albumin Level 4.1 gm/dl (3.4-5.0); Bilirubin,Total 0.5 mg/dl (0.2-1.0); Creatinine Clr Calc Pharmacy 60.9 ml/min; Potassium 3.6 mmol/L (3.5-5.1); Total Protein 7.1 gm/dl (6.0-8.3)
[2024-09-18 10:47] LABS: Troponin I High Sensitivity 3.5 pg/ml (0-20)
--- NOTE | 2024-09-18 10:54 | History & Physical Report ---
Date of Service September 18, 2024 Assessment & Plan (1) Aspiration pneumonia: (2) Acute hypoxemic respiratory failure: (3) History of esophageal surgery: Plan Oswaldo is a 39yo man with h/o Trisomy 21 with esophageal atresia, multiple upper GI surgeries, and multiple hospital visits for pneumonia who is presented with shortness of breath and productive cough. Initial labs unremarkable but CXR showed bilateral mid-lung consolidation. Pt does have home oxygen and is requiring 2L NC to maintain sats above 90%. He is being admitted due to concern for aspiration pneumonia. AHRF/ Aspiration PNA - Pt w/ prior esophageal surgeries and aspiration pneumonia, most recently in Jun 2024 (discharged on Augmentin, home O2, pred taper) who woke with cough and SOB morning after eating at a sporting event. - BP borderline low. HR normal. 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 Has had multiple upper GI surgeries, not all logged in EHR. - Per family, no ongoing issues with swallowing Diet: regular/easy to chew VTE ppx: ambulation Dispo: admit to med-surg, eventual discharge home to parents Code: Full History of Present Illness Chief Complaint: SOB, aspiration pna Primary Care Provider: Precious Ashley DO Oswaldo is a 39yo man with h/o Trisomy 21 with esophageal atresia, multiple upper GI surgeries, and multiple hospital visits for similar sx. Father at bedside helps provide the history. Last night, he was at a game and had the typical food (hot dog, hamburger) w/ no apparent issues at the time. Feeling fine and exhibiting no sx when he went to bed. Woke this morning with cough, productive of thick yellow sputum, and shortness of breath. Due to h/o similar sx with aspiration pneumonia, parents brought him in. No emesis, hemoptysis, foreign body sensation, chest pain. In the ED, his SpO2 dropped to 84% on room air. O2 sat and shortness of breath improved on 2L supplemental O2 via nasal cannula, and he also had a nebulizer treatment. Family requested guaifenesin to manage productive cough. He was given 3g Unasyn for likely aspiration pneumonia. CXR was obtained which showed bilateral mid-lung consolidation. Allergies Allergy/AdvReac Type Severity Reaction Status Date / Time gluten Allergy Severe Abdominal Verified 07/18/24 00:55 Pain lamotrigine Allergy Intermediate Rash Verified 07/18/24 00:55 Sulfa (Sulfonamide Allergy Unknown STRONG Verified 07/18/24 00:55 Antibiotics) FAMILY ALLERGY HX. Home Medications Medication Instructions Recorded Confirmed Type fexofenadine 180 mg tablet 180 mg PO DAILY PRN Congestion 12/13/20 09/18/24 History (Angelica Allergy) multivitamin 1 tab PO DAILY 12/20/20 09/18/24 History ipratropium 20 mcg-albuterol 100 1 puff inhalation BID 03/03/24 09/18/24 History mcg/actuation mist for inhalation (Combivent Respimat) Lactobacil.acidophilus-Bifido.animalis 1 cap PO DAILY 07/18/24 09/18/24 History 5 billion cell sprinkle capsule (Probiotic) albuterol sulfate 2.5 mg/3 mL 2.5 mg (3 mL) inhalation Q4H PRN 07/18/24 09/18/24 Rx (0.083 %) solution for nebulization shortness of breath or wheezing #90 mL digestive enzymes 1 cap PO .DAILY WITH MEALS 07/18/24 09/18/24 History mirtazapine 7.5 mg tablet 7.5 mg PO UD 07/18/24 09/18/24 History ferrous sulfate 325 mg (65 mg 325 mg PO .Q OTHER DAY 09/18/24 09/18/24 History iron) tablet fluoride (sodium) 1.1 % dental 1 applic dental BID 09/18/24 09/18/24 History paste Past Med/Surg History Problem List (Updated 09/18/24 @ 09:38 by Lamonte Peterson PA-C) Elevated troponin I level (Acute) Bilateral pneumonia (Acute) Acute hypoxemic respiratory failure (Acute) Acute viral bronchiolitis Tracheobronchitis Elevated troponin Rhinovirus Aspiration pneumonia (Acute) History of esophageal surgery (Acute) reconstructed esophagus GERD with stricture Multifocal pneumonia (Acute) Allergic rhinitis Dehydration (Acute) Abdominal pain (Acute) Medical History Down's syndrome (05/24/12) Bronchostenosis DVT prophylaxis Hypoxia Sepsis Pneumonia Esophageal stricture reconstructed esophagus Aspiration into airway Trisomy 21 Social History Smoking Status: Never smoker Second Hand Exposure: No; Do You Dip or Chew Tobacco: No; Hx Alcohol Use: No Hx Substance Use: No Preferred Language: Swedish Communication Ability: Effective Communication Ability Comment: Father at bedside Nursing Attendant Required: No Beliefs That Will Affect Care: None marital status: Single Current Living Situation: Parent and Family Feels Safe at Home: Yes Assistive Devices: None Review of Systems Review of Systems: Full ROS conducted and negative except as noted in HPI. Physical Exam Physical Exam: Gen: NAD, WD/WN HEENT: NCAT, anicteric sclera, MMM, tongue midline with equal palate elevation, OP clear, trachea midline, no neck tenderness or mass CV: RRR, no m/r/g, S1/S2 normal Resp: No wheeze/rales/rhonchi noted, symmetrical chest rise, breathing non- labored on 2L NC Abd: Soft, NT/ND, +BS, no masses MSK: No gross deformities Skin: Warm, dry, well-perfused, no rashes or lesions Neuro: AOx3, PERRL, EOMI, face symmetric, no focal deficits Results & Data Results & Data Vital Signs (Past 12 Hours) Vital Signs Temp Pulse Resp BP Pulse Ox O2 Del Method O2 Flow Rate 09/18/24 10:30 99 Nebulizer 8 09/18/24 10:25 75 26 H 109/69 95 Nasal Cannula 2 09/18/24 10:12 80 09/18/24 10:00 80 18 94 Nasal Cannula 3 09/18/24 09:14 84 L Room Air 09/18/24 09:01 36.9 C 72 18 96/64 L 90 Nasal Cannula 2 Supervising Physician Co-Signing Physician Notes I personally examined the patient and verified all garner points of history and exam, discussed case, and agree with decision making with Dr Miller Feeling okay yesterday. Went to a ball game. This morning shortness of aravind th consistent with prior aspiration pneumonias. In general he is awake alert oriented mildly fatigued appearing but otherwise in no acute distress. HEENT normocephalic atraumatic mucous membranes slightly dry. Lungs show diminished air entry base left otherwise clear to auscultation bilaterally no rales rhonchi or wheezes good effort, he is on 3 L to maintain a decent pulse ox. Neuro shows cranial nerves II through XII be grossly intact gross motor and sensory are intact. Aspiration pneumonia superimposed on chronic aspirationfortunately came in fairly quickly, and with that he is reasonably hypoxic, but otherwise appears more fatigued than toxically ill. IV antibiotics (Unasyn), supportive care, supplemental oxygenwean as possible. Not on oxygen at home, hopefully will be to wean him off oxygen entirely. Discharge to home on oral antibiotics once clearly improving. Otherwise as above. Resident Activity Tracking Resident Involvement: Resident Care Provided Care Provided: Adult Hospital Medicine
[2024-09-18 11:08] LABS: Anisocytosis Present; Polychromasia 1+; Tear Drop Cells 1+
[2024-09-18 11:14] LABS: Adenovirus PCR Not Detected (NotDetected); Bordetella parapertussis PCR Not Detected (NotDetected); Bordetella pertussis PCR Not Detected (NotDetected); Chlamydia pneumoniae PCR Not Detected (NotDetected); Coronavirus 229E PCR Not Detected (NotDetected); Coronavirus CoV-2 (COVID19)PCR Not Detected (NotDetected); Coronavirus HKU1 PCR Not Detected (NotDetected); Coronavirus NL63 PCR Not Detected (NotDetected); Coronavirus OC43PCR Not Detected (NotDetected); Human Metapneumovirus PCR Not Detected (NotDetected); Influenza A PCR Not Detected (NotDetected); Influenza B PCR Not Detected (NotDetected); Mycoplasma pneumoniae PCR Not Detected (NotDetected); Parainfluenza Virus 1 PCR Not Detected (NotDetected); Parainfluenza Virus 2 PCR Not Detected (NotDetected); Parainfluenza Virus 3 PCR Not Detected (NotDetected); Parainfluenza Virus 4 PCR Not Detected (NotDetected); Respiratory Syncytial VirusPCR Not Detected (NotDetected); Rhinovirus/Enterovirus PCR Not Detected (NotDetected)
--- NOTE | 2024-09-18 12:46 | Billing Data ---
Date of Service September 18, 2024 Coding Level of Care Code 89365 INT INP/OBS CARE
[2024-09-18] MEDS ORDERED: MELATONIN 3 MG TAB PO PRN (13:09)
[2024-09-18] MEDS ORDERED: ONDANSETRON INJ 2 MG/ML 2 ML VIAL IV PRN (13:09)
[2024-09-18] MEDS ORDERED: POLYETHYLENE (MIRALAX) 17 GM PACK PO PRN (13:09)
[2024-09-18] MEDS: ALBUTEROL 0.083% NEBU SOLN 3 ML VIAL INH PRN (15:05)
[2024-09-18] MEDS: AMPICILLIN/SULBACTAM SOD 3,000 MG/100 ML BAG IV SCH (16:45)
[2024-09-18] MEDS: guaiFENesin SUGAR FREE 200 MG/10 ML UDC PO PRN (16:45)
[2024-09-18] MEDS: ALBUTEROL HFA 8 GM INHALER INH SCH (19:41)
[2024-09-18] MEDS: SODIUM CHLOR 7% 4 ML NEB NEB SCH (19:41)
[2024-09-18] MEDS: IPRATROPIUM BROMIDE HFA INHALER INH SCH (19:41)
[2024-09-18] MEDS: ACETAMINOPHEN 325 MG TAB PO PRN (20:04)
[2024-09-18] MEDS: MIRTAZAPINE TAB 15 MG TAB PO SCH (20:04)
[2024-09-18] MEDS ORDERED: IPRATROPIUM BROMIDE HFA INHALER INH SCH (21:00)
[2024-09-18] MEDS ORDERED: ALBUTEROL HFA 8 GM INHALER INH SCH (21:00)
[2024-09-18] MEDS: BENZONATATE 100 MG CAPSULE PO PRN (23:18)
[2024-09-19 08:01] LABS: Hematocrit (blood only) 40.5 % (42.0-52.0); Hemoglobin 13.2 g/dl (14.0-18.0); Mean Corpuscular Hemoglobin 28.8 pg (25.0-34.0); Mean Corpuscular Hgb Conc 32.6 g/dL (32.0-36.0); Mean Corpuscular Volume 88.2 fL (80.0-100.0); Mean Platelet Volume 10.3 fL (9.4-12.4); Platelet Count 255 K/uL (130-400); RDW Coefficient of Variation 21.2 % (11.5-14.5); RDW Standard Deviation 67.4 fL (36.4-46.3); Red Blood Count 4.59 M/uL (4.70-6.10); White Blood Count 10.24 K/ul (4.8-10.8)
[2024-09-19 08:14] LABS: BUN Creatinine Ratio 10.3 (10-20); Calcium 8.4 mg/dl (8.6-10.3); Creatinine Clr Calc Pharmacy 66.5 ml/min; Potassium 3.8 mmol/L (3.5-5.1)
--- NOTE | 2024-09-19 14:14 | Medical Student Progress Note ---
Date of Service September 19, 2024 Assessment & Plan (1) Aspiration pneumonia: (2) Acute hypoxemic respiratory failure: (3) History of esophageal surgery: Plan Oswaldo is a 39yo man with h/o Trisomy 21 with esophageal atresia, multiple upper GI surgeries, and multiple hospital visits for pneumonia who is presented with shortness of breath and productive cough. Initial labs unremarkable but CXR showed patchy opacity at the mid lungs bilaterally. Pt is currently on 3L NC to maintain sats above 90%. He is being admitted for aspiration pneumonia. AHRF/ Aspiration PNA - Pt w/ prior esophageal surgeries and aspiration pneumonia, most recently in Jun 2024 (discharged on Augmentin, home O2, pred taper) who woke with cough and SOB morning after eating at a sporting event. - BP slightly improving. HR normal. Requiring 3L NC to maintain SpO2 > 90%; not currently on home oxygen - No leukocytosis; procal normal at 0.13 - Biofire negative, MRSA nares negative. Gram stain noted Gram + cocci. 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 Has had multiple upper GI surgeries, not all logged in EHR. - Per family, no ongoing issues with swallowing Normocytic Anemia - Hgb decreased from 15.6 to 13.2; may be to due to dilational effects of recent fluids - Monitor with CBC qAM Diet: regular/easy to chew VTE ppx: ambulation Dispo: admit to med-surg, eventual discharge home to parents Code: Full Admission and Anticipated Discharge Date Admission Date: September 18, 2024 Supervising Attestation I personally examined the patient and verified garner points of history and exam, discussed case, and agree with decision making and plan documented by Dr. Guido and Rula MONCADA. Patient is 39 yr old male with past medical history pertinent for trisomy 21 and esophageal atresia on admission for aspiration pneumonia. Patient was seated comfortably in a chair with his mother Stevo at bedside today. Patient reports improvement of his pulmonary symptoms. Nasal cannula in place, lungs with reduced breath sounds bilaterally with mucous plugging and faint rhonchi (R>L), regular rate and rhythm, no acute distress. Agree with trial of percussion therapy. Continue IV Unasyn at this time. Subjective Patient is AOx3 and sitting up in bed for the visit. He endorses that cough is improving this morning and occurs less often. Denies SOB, CP, palpitations, post nasal drip. Physical Exam Constitutional: AOx3, NAD, well appearing, fatigued ENMT: normocephalic, no lymphadenopathy, no exudates noted in mouth. moist mucus membranes Respiratory: b/l mid lobe inspiratory stridor. Equal chest rise and fall noted. Cardiovascular: RRR, S1 and S2 present. No M/R/G. Results & Data Vital Signs (Past 12 Hours) Vital Signs Temp Pulse Resp BP Pulse Ox O2 Del Method O2 Flow Rate 09/19/24 07:32 64 18 93 Nasal Cannula 3 09/18/24 20:35 38.1 C H 82 18 102/64 95 Room Air 09/18/24 20:05 Nasal Cannula 3
[2024-09-20 06:41] LABS: Hematocrit (blood only) 39.8 % (42.0-52.0); Hemoglobin 12.9 g/dl (14.0-18.0); Mean Corpuscular Hemoglobin 28.6 pg (25.0-34.0); Mean Corpuscular Hgb Conc 32.4 g/dL (32.0-36.0); Mean Corpuscular Volume 88.2 fL (80.0-100.0); Platelet Count 264 K/uL (130-400); RDW Coefficient of Variation 20.3 % (11.5-14.5); RDW Standard Deviation 64.7 fL (36.4-46.3); Red Blood Count 4.51 M/uL (4.70-6.10); White Blood Count 7.81 K/ul (4.8-10.8)
[2024-09-20 07:25] LABS: Calcium 8.5 mg/dl (8.6-10.3); Potassium 3.8 mmol/L (3.5-5.1)
[2024-09-20 07:31] LABS: BUN Creatinine Ratio 12.1 (10-20); Creatinine Clr Calc Pharmacy 70.9 ml/min
--- NOTE | 2024-09-20 07:59 | Hospitalist Progress Note ---
Date of Service September 20, 2024 Assessment & Plan (1) Aspiration pneumonia: (2) Acute hypoxemic respiratory failure: (3) History of esophageal surgery: Plan Oswaldo is a 39yo man with h/o Trisomy 21 with esophageal atresia, multiple upper GI surgeries, and multiple hospital visits for pneumonia who is presented with shortness of breath and productive cough. Initial labs unremarkable but CXR showed patchy opacity at the mid lungs bilaterally. Pt is currently on 3L NC to maintain sats above 90%. He is being admitted for aspiration pneumonia. AHRF/ Aspiration PNA - Pt w/ prior esophageal surgeries and aspiration pneumonia, most recently in Jun 2024 (discharged on Augmentin, home O2, pred taper) who woke with cough and SOB morning after eating at a sporting event. - BP slightly improving. HR normal. Requiring 3L NC to maintain SpO2 > 90%; not currently on home oxygen - No leukocytosis; procal normal at 0.13 - Biofire negative, MRSA nares negative. Gram stain noted Gram + cocci. 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 Has had multiple upper GI surgeries, not all logged in EHR. - Per family, no ongoing issues with swallowing Normocytic Anemia - Hgb decreased from 15.6 to 13.2; may be to due to dilational effects of recent fluids - Monitor with CBC qAM Diet: regular/easy to chew VTE ppx: ambulation Dispo: admit to med-surg, eventual discharge home to parents Code: Full Admission and Anticipated Discharge Date Admission Date: September 19, 2024 Subjective Patient is AOx3 and sitting up in bed for the visit. He endorses that cough is improving this morning and occurs less often. Denies SOB, CP, palpitations, post nasal drip. Results & Data Results & Data Vital Signs (Past 12 Hours) Vital Signs Temp Pulse Pulse Resp BP Pulse Ox O2 Del Method 09/19/24 21:40 36.8 C 78 16 100/67 100 Nasal Cannula 09/19/24 19:45 Nasal Cannula 09/19/24 19:45 73 17 93 Nasal Cannula O2 Flow Rate 09/19/24 21:40 1 09/19/24 19:45 1 09/19/24 19:45 1
[2024-09-20 08:03] VITALS: BP 103/74; PULSE 67; RESP 14; TEMP 97.7
[2024-09-20 10:12] VITALS: O2SAT 92
--- NOTE | 2024-09-20 18:43 | Discharge Summary ---
Date of Service September 20, 2024 Admission HPI Per Admitting Provider Oswaldo is a 39yo man with h/o Trisomy 21 with esophageal atresia, multiple upper GI surgeries, and multiple hospital visits for similar sx. Father at bedside helps provide the history. Last night, he was at a game and had the typical food (hot dog, hamburger) w/ no apparent issues at the time. Feeling fine and exhibiting no sx when he went to bed. Woke this morning with cough, productive of thick yellow sputum, and shortness of breath. Due to h/o similar sx with aspiration pneumonia, parents brought him in. No emesis, hemoptysis, foreign body sensation, chest pain. In the ED, his SpO2 dropped to 84% on room air. O2 sat and shortness of breath improved on 2L supplemental O2 via nasal cannula, and he also had a nebulizer treatment. Family requested guaifenesin to manage productive cough. He was given 3g Unasyn for likely aspiration pneumonia. CXR was obtained which showed bilateral mid-lung consolidation. Admission Exam Per Admitting Provider Physical Exam Gen: NAD, WD/WN HEENT: NCAT, anicteric sclera, MMM, tongue midline with equal palate elevation, OP clear, trachea midline, no neck tenderness or mass CV: RRR, no m/r/g, S1/S2 normal Resp: No wheeze/rales/rhonchi noted, symmetrical chest rise, breathing non- labored on 2L NC Abd: Soft, NT/ND, +BS, no masses MSK: No gross deformities Skin: Warm, dry, well-perfused, no rashes or lesions Neuro: AOx3, PERRL, EOMI, face symmetric, no focal deficits Principal Diagnosis 1. Aspiration Pneumonia Discharge Exam Constitutional WD/WN, vitals as above well developed; no acute distress Eyes PERRL, conjunctivae normal, anicteric sclerae ENMT external ear and nose normal, oropharynx normal Ears: no hearing impairment Neck trachea midline, no thyromegaly trachea midline Respiratory normal respiratory effort, lungs clear to auscultation normal respiratory effort and + respiratory distress; no labored breathing and no retractions Auscultation: lungs clear to auscultation bilaterally Cardiovascular RRR, no murmur, no edema Rate/Rhythm: regular rate and regular rhythm Chest (Breasts) normal inspection/palpation of breasts Chest: normal inspection of chest Discharge Data Allergies Allergy/AdvReac Type Severity Reaction Status Date / Time gluten Allergy Severe Abdominal Verified 07/18/24 00:55 Pain lamotrigine Allergy Intermediate Rash Verified 07/18/24 00:55 Sulfa (Sulfonamide Allergy Unknown STRONG Verified 07/18/24 00:55 Antibiotics) FAMILY ALLERGY HX. Consultations 09/18/24 10:38 ED Decision to Admit Stat Hospital Course (1) Acute hypoxemic respiratory failure: (2) Aspiration pneumonia: Elvin Chacon is a 39yo man with h/o Trisomy 21 with esophageal atresia, multiple upper GI surgeries, and multiple hospital visits for pneumonia who is presented with shortness of breath and productive cough. Initial labs unremarkable but CXR showed patchy opacity at the mid lungs bilaterally. Pt is currently on 3L NC to maintain sats above 90%. He is being admitted for aspiration pneumonia. AHRF/ Aspiration PNA -Switch Unasyn to Augemntin -On 1 l of O2. 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 Has had multiple upper GI surgeries, not all logged in EHR. - Per family, no ongoing issues with swallowing Normocytic Anemia - Hgb decreased from 15.6 to 13.2; may be to due to dilational effects of recent fluids - Monitor with CBC qAM Diet: regular/easy to chew VTE ppx: ambulation Dispo: admit to med-surg, eventual discharge home to parents Code: Full Total Time Total Time Spent Total Time Spent (In Minutes): See attending attestation Discharge Plan Discharge Items Patient Disposition: Home - Self-Care Reason For Visit: SOB, ASPIRATION, PNEUMONIA Discharge Diagnosis: 1. Aspiration Pneumonia Condition on Discharge: Fair Activity: Resume your previous activity Non-emergency contact: Primary Care Provider Call non-emergency contact if: you have any medication questions, your symptoms worsen and your pain is not controlled Follow-up/Referrals: Precious Araujo DO [Primary Care Provider] - 09/26/24 8:40 am Diet: Regular Addtl Attending Provider Instructions: You were admitted to the hospital for Aspiration Pneumonia You were treated with IV antibiotics and Oxygen as needed A discharge summary will be sent to your primary care physician to ensure continuity of care. Please bring this discharge summary with you to your next office appointment so that your provider can review it at that time. Medications: Your medication list has been reviewed and reconciled upon discharge to ensure accuracy and continuity of care. An updated list of all your medications is included with your hospital discharge paperwork. Please review this list closely and make note of any changes to your medications. -New Medication called Augmentin has been sent to your Pharmacy. Take Augmentin two times a day for 5 days Follow up appointments: - Make a follow up appointment with your PCP within the next week. It is very important that you follow up with them shortly after discharge from the hospital. - Keep all of your follow up appointments as already scheduled. If you cannot make an appointment, notify your provider. CONTACT YOUR PRIMARY CARE PROVIDER if you experience any of the following: Increase in shortness of breath, severe cough and unable to maintain normal oxygen saturation at home. Difficulty following your treatment plan - Difficulty taking any of your medications CALL 911 OR GO TO THE EMERGENCY DEPARTMENT if you experience any of the following: - [related to reason for admission] - Sudden, severe abdominal pain or nausea/ vomiting - Severe chest pain or chest pain that radiates to your jaw or arm - Sudden, severe shortness of breath or difficulty breathing Pending Studies at Discharge: No Stand-Alone Forms: My [facility] Equals[employer], Smoking Cessation Medications and DC Order Prescriptions: New amoxicillin-pot clavulanate [Augmentin] 500-125 mg tablet 1 tab PO BID Qty: 10 0RF Continued fexofenadine [Angelica Allergy] 180 mg tablet 180 mg PO DAILY PRN (Reason: Congestion) multivitamin Tablet 1 tab PO DAILY Combivent Respimat 20-100 mcg/actuation mist 1 puff inhalation BID Rx Instructions: inhale 1 puff by mouth and INTO THE LUNGS twice a day digestive enzymes Capsule 1 cap PO .DAILY WITH MEALS Rx Instructions: administer with food; swallow whole; do not crush/chew/dissolve/break/cut mirtazapine 7.5 mg tablet 7.5 mg PO UD Rx Instructions: 7.mg po hs. hasnt started medication yet Probiotic 5 billion cell Capsule, Sprinkle 1 cap PO DAILY albuterol sulfate 2.5 mg /3 mL (0.083 %) solution for nebulization 2.5 mg inhalation Q4H PRN (Reason: shortness of breath or wheezing) Qty: 90 0RF ferrous sulfate 325 mg (65 mg iron) tablet 325 mg PO .Q OTHER DAY fluoride (sodium) 1.1 % paste 1 applic dental BID Discharge Orders: Discharge Order (Routine); Ordered 09/20/24 Ordered By: Dontae Martinez/Other Patient Handouts: Preventing Pneumonia Admission Data Admit Date/Time: 09/19/24 15:29 Attending Provider: Cecy Byrne Admit Provider: Jreamy Miller Primary Care Provider: Precious Araujo Other Providers: Jez Khan; Dontae Guido Other Interventions: Discharge Summary Assessment (RN) Last Done: 09/20/24 12:32 Supervising Physician Co-Signing Physician Notes I personally examined the patient and verified garner points of history and exam, discussed case, and agree with decision making and plan documented by Dr. Guido. Patient is 39 yr old male with past medical history pertinent for trisomy 21 and esophageal atresia on admission for aspiration pneumonia. Patient reports improvement of his pulmonary symptoms following IV antibiotics and supportive care. Patient with normal oxygen saturations on RA. Patient does have pulse oximeter and supplemental oxygen at home. Will complete antibiotic course with Augmentin. Patient will f/u with PCP for MIRI. Total attending time 36 minutes Resident Activity Tracking Resident Involvement: Resident Care Provided Care Provided: Adult Hospital Medicine
--- NOTE | 2024-09-21 12:28 | Electrocardiogram Report ---
Test Reason : Blood Pressure : */* mmHG Vent. Rate : 69 BPM Atrial Rate : 69 BPM P-R Int : 114 ms QRS Dur : 92 ms QT Int : 402 ms P-R-T Axes : 36 54 28 degrees QTcB Int : 430 ms Normal sinus rhythm Normal ECG When compared with ECG of 18-Jul-2024 00:36, [id number] is no longer evident Confirmed by Manolo Christopher ([id number]) on 09/21/2024 12:28:17 PM Referred By: Confirmed By: Manolo Christopher
== END 2024-09-20 13:28 | disposition home or self-care (01) | DRG 177 ==
LOC: 3W 08:54 → ED 08:54 → 3W 12:50 → SUATTDRO 13:05
DX: Z88.8 Allergy status to other drugs, medicaments and biological substances; J96.01 Acute respiratory failure with hypoxia; Z79.899 Other long term (current) drug therapy; J69.0 Pneumonitis due to inhalation of food and vomit; Z79.51 Long term (current) use of inhaled steroids; Q90.9 Down syndrome, unspecified; Z88.2 Allergy status to sulfonamides